=== PATIENT | female | born 1975 | race Caucasian/White ===

== ENCOUNTER 2017-02-07 05:14 | Day surgery (SDC) | payer OTHER ==
[2017-01-27 14:11] VITALS: BMI 33.0
--- NOTE | 2017-01-27 14:41 | PAT Medication Instructions ---
Service Date January 27, 2017. Current Home Medication List Levothyroxine Sodium (Levothyroxine Sodium), 125 MCG PO QAM Omeprazole (Prilosec), 20 MG PO QAM PRN for REFLUX Medication Instructions For Your Scheduled Surgery - Take the following medications the morning of surgery with a sip of water: Levothyroxine Sodium (Levothyroxine Sodium), 125 MCG PO QAM Omeprazole (Prilosec), 20 MG PO QAM PRN for REFLUX - Take the following medications as scheduled the night before surgery: Omeprazole (Prilosec), 20 MG PO QAM PRN for REFLUX If you have any questions please call us at [phone] (Gerri Howard PA-C) or [phone] or [phone]
[2017-01-27 15:24] LABS: BASO % 0.9 %; BASO ABS # 0.07 K/uL (0-0.2); COMPLETE YES; EOS % 1.6 %; HEMATOCRIT 44.6 % (37-47); IG% 0.3 %; LYMPH % 34.1 %; LYMPH ABS # 2.51 K/uL (1.2-3.4); MEAN CELL VOLUME 88.5 fL (80-100); MEAN CORPUSCULAR HEMOGLOBIN 30.2 pg (25-34); MEAN CORPUSCULAR HGB CONC 34.1 g/dl (32-36); MEAN PLATELET VOLUME 9.4 fL (7.4-10.4); MONO % 7.6 %; NEUT % 55.5 %; PLATELET COUNT 264 K/uL (130-400); RED BLOOD COUNT 5.04 M/uL (4.2-5.4); URINE APPEARANCE CLEAR (CLEAR); URINE BILIRUBIN NEG (NEG); URINE COLOR YELLOW; URINE EPITHELIAL CELL AUTO >30 /lpf (0-5); URINE NITRITE NEG (NEG); URINE SPECIFIC GRAVITY 1.014 (1.000-1.030); UROBILINOGEN NEG (NEG); WHITE BLOOD COUNT 7.37 K/uL (4.8-10.8)
[2017-01-27 15:25] LABS: MANUAL MICROSCOPIC REQUIRED? NO; REVIEW REQ? NO
[2017-01-27 15:35] LABS: PARTIAL THROMBOPLASTIN RATIO 1.2; PROTHROMBIN TIME (PATIENT) 10.2 SECONDS (9.0-12.0)
[~2017-02-07] VITALS: Ht 167.6 cm; Wt 94.5 kg
[~2017-02-07 05:14] MED LIST: LEVO125T5 PO; OMEP20CA59 PO
[2017-02-07] MEDS ORDERED: NITR1CAP32 PO (05:38)
[2017-02-07 05:42] VITALS: BP 127/79; PULSE 81; TEMP 36.7; O2SAT 93; Ht 167.6 cm; Wt 94.5 kg
[2017-02-07] MEDS ORDERED: CEFAZOLIN 2000 MG/60 ML D5W IV SCH (06:00)
[2017-02-07] MEDS ORDERED: LACTATED RINGER'S 1000ML 1,000 ML IV SCH ×2 (06:00)
[2017-02-07] MEDS ORDERED: FENTANYL CITRATE INJ 50 MCG/1 ML 2 ML VIAL ONE ×2 (06:37→08:41)
[2017-02-07] MEDS ORDERED: MIDAZOLAM HCL 1 MG/ML 2ML VIAL ONE (06:37)
[2017-02-07] MEDS ORDERED: LIDOCAINE HCL 2% 2 ML VIAL (20MG/ML) ONE (06:37)
[2017-02-07] MEDS ORDERED: NEOSTIGMINE METHYLSULFATE 5 MG/5 ML SYR ONE (06:37)
[2017-02-07] MEDS ORDERED: DEXAMETHASONE SOD INJ 4 MG/ML VIAL ONE (06:37)
[2017-02-07] MEDS ORDERED: ROCURONIUM BROMIDE 10 MG/ML 5 ML VIAL ONE (06:37)
[2017-02-07] MEDS ORDERED: GLYCOPYRROLATE INJ 0.2 MG/ML VIAL ONE (06:37)
[2017-02-07] MEDS ORDERED: ONDANSETRON INJ 2 MG/ML 2 ML VIAL ONE (06:37)
[2017-02-07] MEDS ORDERED: PROPOFOL IV EMULSION 10 MG/ML 20 ML VIAL IV ONE (06:37)
--- NOTE | 2017-02-07 06:56 | History & Physical Bridge Note ---
H&P Re-Evaluation Bridge Note: I have examined the patient, reviewed the History & Physical and in the interval since the performance of the History & Physical I have noted the following changes of clinical significance: No changes noted
[2017-02-07] MEDS ORDERED: BUPIVACAINE 0.5 % 5 MG/1 ML MPF 30ML VIAL ONE (07:04)
[2017-02-07] MEDS ORDERED: KETOROLAC TROMETHAMINE 30 MG/ML VIAL ONE (08:02)
[2017-02-07] MEDS ORDERED: SILVER NITR/POTASSIUM NITRATE APPLICATOR ONE (08:14)
[2017-02-07] MEDS ORDERED: SILVER NITRATE APPLICATORS TOP ONE (08:14)
[2017-02-07] MEDS ORDERED: ATROPINE SULFATE 0.1 MG/ML 5ML SYR IV PRN ×2 (08:15)
[2017-02-07] MEDS ORDERED: ONDANSETRON INJ 2 MG/ML 2 ML VIAL IV PRN ×3 (08:15→08:30)
[2017-02-07] MEDS ORDERED: LABETALOL HCL IV 5 MG/ML 20ML IV PRN ×2 (08:15)
[2017-02-07] MEDS ORDERED: FENTANYL CITRATE INJ 50 MCG/1 ML 2 ML VIAL IV PRN ×2 (08:15)
[2017-02-07] MEDS ORDERED: EpHEDrine SULFATE INJ 50 MG/ML AMP IV PRN ×2 (08:15)
[2017-02-07] MEDS ORDERED: HYDROmorphone INJ 1 MG/ML SYR IV PRN ×2 (08:15)
[2017-02-07] MEDS ORDERED: MEPERIDINE HCL 25 MG/ML CARP IV PRN ×2 (08:15)
[2017-02-07] MEDS ORDERED: SODIUM CHLORIDE 0.9% 1000ML 1,000 ML IV SCH (08:26)
--- NOTE | 2017-02-07 08:28 | [facility] Post Operative Brief Note ---
Immediate Operative Summary Operative Date February 07, 2017. Pre-Operative Diagnosis Desire for permanent sterilization Post-Operative Diagnosis Same as preoperative Procedure(s) Performed Evaluation Under Anesthesia, Laparoscopic Tubal Sterilization with coagulation and fulguration of endometriosis Surgeon Dr. Curry Counsellors Surgeon(s) Dr. Miguel Landrum Estimated Blood Loss 5ml Findings Normal uterus, fallopian tubes and ovaries, mild superficial red/ browns spots suggesting endometriosis on posterior cul de sac Specimens None per surgeon Drains Straigh cath 50 ml urine Anesthesia GEAT Complication(s) None Disposition Recovery Room / PACU
[2017-02-07] MEDS ORDERED: MoRPHine SULFATE 2 MG/ML CARP IV PRN (08:30)
[2017-02-07] MEDS ORDERED: MoRPHine SULFATE 4 MG/ML 1 ML CARP\\VIAL IV PRN (08:30)
[2017-02-07] MEDS ORDERED: KETOROLAC TROMETHAMINE 30 MG/ML VIAL IV. PRN (08:30)
[2017-02-07] MEDS ORDERED: OXYCODONE/ACETAMINOPHEN 5-325 TAB PO PRN ×2 (08:30)
[2017-02-07] MEDS ORDERED: IBUPROFEN 600 MG TAB PO PRN (08:30)
[2017-02-07] MEDS ORDERED: METOCLOPRAMIDE HCL INJ 5 MG/ML 2 ML VIAL IV PRN (08:30)
[2017-02-07] MEDS ORDERED: MTR600X MT (08:38)
[2017-02-07] MEDS ORDERED: OXYC-57 PO (08:38)
--- NOTE | 2017-02-07 08:40 | Discharge Instructions ---
Discharge Instructions Date of Service February 07, 2017. Admission Reason for Admission: Desire For Permanent Sterilization Discharge Discharge Diagnosis / Problem: Laparoscopic tubal sterilization and fulguration of endometriosis Discharge Goals Goal(s): Routine recovery after surgery Medications Continue Dispensed Medications: supercream, lansinoh Activity Recommendations Activity Limitations: as noted below Lifting Limitations: gradually increase as tolerated Exercise/Sports Limitations: until after follow-up appointment May Resume Sexual Activity: after follow-up appointment Shower/Bathe: keep incision dry Driving or Machine Use: ACTIVITY RECOMMENDATIONS: * Rest the first 2-3 days. You should be back to your normal activity levels by day 3. * No heavy lifting for 2 weeks. * No intercourse, tampons or douching for 1-2 weeks. * You may shower the next day. * Do not drive anytime that you are taking narcotic pain medicines. RETURN TO SCHOOL/WORK: * May return to school or work after 2-3 days. DIET: Nausea may occur in the immediate post-operative period. If so, take clear liquids such as tea, bouillon, apple juice until all nausea has subsided, then resume usual diet. MEDICATIONS: Resume previous medications unless instructed otherwise by your surgeon. Ibuprofen 200mg 2-3 tablets every 4-6 hours as needed -- OR -- Aleve 2 tablets every 8-12 hours as needed for post-operative discomfort Medications are over the counter. Tylenol may be used if above medications are contraindicated or not preferred. Medication should be taken with food or milk. Do not take on an empty stomach. SPECIAL CARE INSTRUCTIONS: * Check temperature twice daily for one week. report any elevation over 101 degrees. * You may experience some vagina spotting and/or bleeding. This is normal for 1 -2 weeks and should not be heavier than a normal period. If it is unusual in amount, call your physician. * Post-operative discomfort may consist of a sore throat, a "bloated" feeling and pain in the shoulders. these are normal symptoms, which usually only last for 2-3 days. * Remove band-aids tomorrow and shower. There is no need to replace band-aids unless there is drainage or discomfort. FOLLOW UP VISIT: Call your doctor's office for a post-operative 2 week visit if not already scheduled. . Current Hospital Diet Patient's current hospital diet: Discharge Diet Recommended Diet: Regular Diet Procedures Procedures Performed: Evaluation Under Anesthesia, Laparoscopic Tubal Sterilization with coagulation and fulguration of endometriosis Pending Studies Studies pending at discharge: no Medical Emergencies . Who to Call and When: Medical Emergencies: If at any time you feel your situation is an emergency, please call 911 immediately. . Non-Emergent Contact Non-Emergency issues call your: Surgeon Call Non-Emergent contact if: temperature is above 100.5, your pain is not controlled, your pain is worsening, wound has increased drainage, wound has increased redness, wound has increased pain, you have any medication questions . . "Provider Documentation" section prepared by Elva Curry. . VTE Core Measure Inpt VTE Proph given/why not?: Treatment not indicated [place] Drug Monitoring Program Search Results: no issues identified
[2017-02-07] MEDS ORDERED: METO-157 PO (08:41)
[2017-02-07 09:15] VITALS: BP 111/66; PULSE 60; TEMP 36.5; O2SAT 92
--- NOTE | 2017-02-07 09:19 | Anesthesiology Progress Note ---
Anesthesia Post Op Note Date & Time February 07, 2017 at 09:18 Vital Signs Pain Intensity: 3 Vital Signs Past 12 Hours Date Time Temp Pulse Resp B/P Pulse Ox O2 Delivery O2 Flow Rate FiO2 02/07/17 09:10 106/72 02/07/17 09:10 36.5 51 12 106/72 92 Room Air 02/07/17 09:07 54 15 02/07/17 09:07 53 15 92 02/07/17 09:05 111/69 02/07/17 09:02 58 18 02/07/17 09:02 61 18 89 02/07/17 09:01 103/74 02/07/17 08:57 58 19 02/07/17 08:57 60 19 94 02/07/17 08:56 58 16 95 02/07/17 08:56 57 16 02/07/17 08:55 113/67 02/07/17 08:51 56 18 02/07/17 08:51 57 18 97 02/07/17 08:50 116/77 02/07/17 08:46 55 12 02/07/17 08:46 55 12 100 02/07/17 08:45 112/73 02/07/17 08:41 63 15 100 02/07/17 08:41 62 15 02/07/17 08:40 116/76 02/07/17 08:36 61 17 100 02/07/17 08:36 61 17 02/07/17 08:35 114/76 02/07/17 08:31 62 16 02/07/17 08:31 61 16 100 02/07/17 08:30 111/71 02/07/17 08:26 68 108/67 100 02/07/17 08:26 68 02/07/17 08:26 36.0 71 16 108/67 100 Mask 10 02/07/17 05:42 36.7 81 18 127/79 93 Room Air Notes Mental Status: alert / awake / arousable, participated in evaluation Pt Amnestic to Procedure: Yes Nausea / Vomiting: adequately controlled Pain: adequately controlled Airway Patency, RR, SpO2: stable & adequate BP & HR: stable & adequate Hydration State: stable & adequate Anesthetic Complications: no major complications apparent
[2017-02-07 09:45] VITALS: BP 110/71; PULSE 62; TEMP 36.7; O2SAT 94
[2017-02-07 10:15] VITALS: BP 120/64; PULSE 59; TEMP 36.6; O2SAT 97
--- NOTE | 2017-02-07 10:32 | OPERATIVE REPORT ---
DATE OF OPERATION: 02/07/2017 PREOPERATIVE DIAGNOSES: The patient is a 41-year-old G2, P2-0-0-2 multipara, desires for permanent sterilization and declines nonsurgical halfway contraceptive options. POSTOPERATIVE DIAGNOSES: Same and mild endometriosis. PROCEDURES: Examination under anesthesia, laparoscopic tubal sterilization with bilateral tubal coagulation and fulguration of endometriosis. SURGEON: Dr. Virgie Lorenzo. NOZZLEMAN: Dr. Landrum. ESTIMATED BLOOD LOSS: 5 mL. DRAINS: Straight catheter drained 50 mL of clear urine. ANESTHESIA: General endotracheal. COMPLICATIONS: None. FINDINGS: Examination under anesthesia revealed a slightly enlarged 6 weeks' size anteverted uterus, nonpalpable adnexa. INTRAOPERATIVE FINDINGS: Normal liver and upper abdomen. Normal uterus, fallopian tubes and ovaries. There were noted to be mild superficial red, brown spots on the pelvic peritoneum off the posterior cul-de-sac. They were suggesting endometriosis. DESCRIPTION OF PROCEDURE: The patient was taken to the operating room, where general anesthesia was given without difficulty. She was placed in dorsal lithotomy position and prepared and draped in the usual sterile fashion and examination under anesthesia was done with the above findings and the bladder was drained with a straight catheter, 50 mL of clear urine was obtained. Then, the weighted speculum was placed in the patient's vagina. Cervix was visualized and it was held with tenaculum. A D1G uterine manipulator was placed in the uterus to help to manipulate the uterus during surgery and instruments were removed from the patient's vagina. Gloves were changed and attention was turned to the patient's abdomen, where a periumbilical skin incision was made about 12 mm and a subcuticular fat tissue was brought down with the tip of hemostat. Fascia was visualized, grasped with Bree clamps x2. It was incised with a scalpel and then in that opening, the peritoneum was identified, grasped with hemostat and brought up to the incision and it was entered sharply with Metzenbaum scissors and then, the finger was introduced from the peritoneum. Intraabdominal entrance was confirmed and 12-mm Bob trocar was placed from this incision and it was attached to the fascial edges with the Vicryl suture. Then, CO2 gas was started. The intraabdominal pressure was set to 15 mmHg and then pneumoperitoneum was obtained. Then intraabdominal entrance was confirmed with the scope. Pictures were taken from the upper abdomen, pelvis, ovaries and the posterior cul-de-sac. The left fallopian tube was identified. It was followed till the fimbria. From the operative scope, Kleppinger was introduced and the left fallopian tube was grasped from the mid portion and elevated and then it was coagulated with the Kleppinger from 3 spots. About 3-4 cm length of the tube was coagulated. Excellent hemostasis was achieved. Attention was turned to the right fallopian tube, it was also grasped and identified and followed till the fimbria. It was held from the mid portion and elevated. It was again coagulated with the Kleppinger from 3 spots. About 3-4 cm length was coagulated. The pictures were taken. The posterior cul-de-sac was visualized and there were 3 red spots suggesting endometriosis. They were coagulated with the tip of Kleppinger and then, the pelvis was inspected again to be hemostatic and tubal coagulation was complete. Decision was made to end the procedure. Instruments were removed from the patient's abdomen and CO2 gas was emptied from the incision. The fascia was identified and reapproximated with 0 Vicryl in a running fashion and then, the skin was closed with 4-0 Monocryl in a subcuticular fashion. Incision was covered with dressing. Attention was turned to the patient's vagina. Weighted speculum was placed and Hulka manipulator was removed from the patient's uterus. Anterior lip of cervix was oozing minimal blood, which was controlled with silver nitrate stick and the procedure was ended. No complications happened. All the sponge, instrument and needle counts were correct x3. The patient was taken out from lithotomy position, cleaned and dried. She was taken to recovery room in stable condition. I and Dr. Landrum were present during whole procedure. The patient received 2 grams of cefazolin before surgery. I attest to the content of the Intraoperative Record and any orders documented therein. Any exceptions are noted below. SERGEY
== END 2017-02-07 10:15 | disposition home or self-care (01) ==
LOC: C.ACU 05:14
PROVIDERS: ATTEND Obstetrics & Gynecology
DX: Z30.2 Encounter for sterilization (principal); E03.9 Hypothyroidism, unspecified; E66.9 Obesity, unspecified; Z90.49 Acquired absence of other specified parts of digestive tract; Z68.33 Body mass index [BMI] 33.0-33.9, adult; Z88.1 Allergy status to other antibiotic agents; Z88.0 Allergy status to penicillin; Z83.3 Family history of diabetes mellitus; Z82.49 Family history of ischemic heart disease and other diseases of the circulatory system

== ENCOUNTER 2017-10-05 15:36 | Emergency (ER) | payer OTHER ==
[~2017-10-05] VITALS: Ht 172.7 cm; Wt 94.8 kg
[~2017-10-05 15:36] MED LIST changes: -LEVO125T5 PO; +MTR600X MT; +NITR1CAP32 PO
[2017-10-05 15:45] VITALS: BP 133/83; PULSE 81; TEMP 36.6; O2SAT 99; Ht 172.7 cm; Wt 94.8 kg
[2017-10-05] MEDS ORDERED: LEVO125T5 PO (15:52)
--- NOTE | 2017-10-05 23:34 | EMERGENCY ROOM VISIT NOTE ---
ED Visit Note First contact with patient: 15:50 Chief Complaint: Left thumb laceration. History of Present Illness: Ms. Graham is a 42-year-old white female who ambulates into the ED accompanied by family members complaining of a laceration to the left thumb. Patient reports less than an hour ago she was peeling and cutting potatoes when she accidentally cut her left thumb with a knife. She reports she clean the wound and control bleeding prior to arrival at the hospital. Currently she is complaining of a stinging and burning pain to the tip of the left thumb. She rates her discomfort 8/10. Her pain is nonradiating. Her pain worsens with palpation. She has not identified any alleviating factors related to the pain. She has not taken any medications for pain prior to arrival at the hospital. She denies any associated symptoms including other finger pain, thumb weakness/numbness/tingling. Review of Systems: As noted above in history of present illness. Past Medical History: Hypothyroidism, facial hemangioma, varicella, gallbladder pancreatitis, status post tubal ligation, unspecified eye surgery, facial plastic surgery, and cholecystectomy. Current Medications: Prilosec, levothyroxine. Allergies to Medications: Penicillin, tazobactam. Social History: Patient is currently employed; she feels safe in her home environment; she denies tobacco and alcohol use. Tetanus Immunization Status: Patient reports up-to-date. Physical Examination: Vital Signs: Date Time Temp Pulse Resp B/P (MAP) Pulse Ox O2 Delivery O2 Flow Rate FiO2 10/05/17 15:45 36.6 81 18 133/83 99 Room Air GENERAL: 42-year-old female in mild distress due to pain, nontoxic-appearing, afebrile and hemodynamically stable. NEUROLOGICAL: Awake, alert and oriented to person, place and time. Answering questions appropriately and following commands. SKIN: Warm, dry and pink. Left Thumb: Patient has a 1 cm partial-thickness laceration through the tip of the finger causing a small flap of skin. Bleeding controlled. LEFT THUMB: Soft tissue injury as noted above. No gross bony deformity. Full range of motion of the MCP and interphalangeal joint against resistance. Throughout the thumb the skin was warm and pink and capillary refill is brisk. She is able to distinguish light sensations through all dermatomes. ED Course: Patient is assessed as noted above. Patient's medication list was reviewed. Patient was offered pain medications and refused. Wound Repair: Complexity: Basic Verbal consent was obtained after the risks and benefits were explained. The skin was prepped with betadine and a sterile field set. The wound was explored for foreign bodies and none found. Copious irrigation was performed using sterile saline. With direct pressure the bleeding subsided. Debridement was not performed. The wound edges were approximated using Steri-Strips. Hemostasis and excellent approximation was achieved. Sterile dressing applied. No complications and the patient tolerated the procedure well. Patient was educated about tonevin's findings and instructed on her treatment plan; she verbalizes understanding and agreement with this plan. Clinical Impression: Superficial laceration of the left thumb. Disposition: Patient discharged home in stable condition; prior to departure he was reassessed and subjectively reported she was pain-free. Plan: Comfort measures, wound care, and signs of infection were discussed with the patient. Patient was encouraged to follow-up with personal physician or return emergency department for any signs of infection or any new/concerning symptoms.
== END 2017-10-05 16:26 | disposition home or self-care (01) ==
LOC: C.EDB 15:37 → C.EDD 16:26
DX: S61.012A Laceration without foreign body of left thumb without damage to nail, initial encounter (principal); W26.0XXA Contact with knife, initial encounter; Y93.G1 Activity, food preparation and clean up; E03.9 Hypothyroidism, unspecified; D18.01 Hemangioma of skin and subcutaneous tissue; Z98.51 Tubal ligation status

== ENCOUNTER 2023-11-13 11:59 | Inpatient (IN) ==
[2023-11-13] MEDS: SODIUM CHLORIDE 0.9% 500 ML IV STA (12:11)
--- NOTE | 2023-11-13 12:40 | Emergency Department Note ---
History of Present Illness General Chief complaint: Kidney Stone Stated complaint: FLANK PAIN, KIDNEY STONE TOO BIG TO PASS Time Seen by Provider: 11/13/23 12:23 Source: patient, family (Son who is at the bedside), RN notes reviewed and old records reviewed (I have reviewed records from urology office visit for similar complaints and 11-11-2023) Mode of arrival: ambulatory Limitations: no limitations History of Present Illness Maximum Pain Intensity: 10 This patient is a 48-year-old female who comes in after continuing to have right-sided flank and abdominal pain. She had a workup and was found to have hydronephrosis on the right with some cysts as well as a stone. I reviewed the urology note from Dr. Berrios he is unclear what is causing her symptoms whether with the cyst or the stones he did start on antibiotics and Flomax and she is scheduled for surgery on . She says the pain just gotten worse she does not feel well .she had no fever. no fatigue. she says she is not doing well at home she has had some nausea. No trauma fall or trauma. No dysuria. She did try her pain medication and she is on Oxy IR which did not make her feel better she is presently on Cipro. Home Medications Medication Instructions Recorded Confirmed Type tamoxifen 20 mg tablet 20 mg PO PM 03/07/20 11/13/23 History levothyroxine 137 mcg capsule 137 mcg PO DAILY 05/15/22 11/13/23 History omeprazole 20 mg capsule,delayed 20 mg PO DAILY 04/05/23 11/13/23 History release multivitamin 1 tab PO DAILY 11/07/23 11/13/23 History tamsulosin 0.4 mg capsule 0.4 mg PO DAILY #30 caps 11/11/23 11/13/23 Rx ciprofloxacin HCl 500 mg tablet 500 mg PO Q12H #4 tabs 11/13/23 11/13/23 Rx (Cipro) oxycodone 5 mg tablet 5 mg PO Q6H PRN Severe Pain (Scale 11/13/23 11/13/23 History Score 7-10) Allergies Allergy/AdvReac Type Severity Reaction Status Date / Time Penicillins Allergy Intermediate RASH-AMOXIC Verified 04/18/23 08:39 ILLIN tazobactam Allergy Intermediate RASH Verified 04/18/23 08:39 adhesive Allergy Mild Rash Verified 04/18/23 08:39 Past Med/Surg History Medical History (Updated 11/13/23 @ 19:51 by Sam Booker MD) History of breast cancer Lazy eye Left Eye History of vaginal delivery x 2 Varicella without complication Hypothyroidism Hemangioma of skin Severe, Facial Surgical History History of laparoscopic appendectomy (04/05/23) Laparoscopic Appendectomy(Not Applicable) - Kareem Denton MD, FACS History of surgery As a child - Excision behind left ear - exploratory - negative History of cholecystectomy 07/30/2007 History of esophagogastroduodenoscopy (EGD) 08/03/2016 - Severe Esophagititis, food impaction History of lumpectomy of left breast 02/09/2020 - and SLN Biopsy S/P breast biopsy, left 01/03/2020 Family History Grandmother (Paternal) , Passed in 80's of unknown Breast cancer Mother No problems noted. Father No problems noted. Brother No problems noted. Son No problems noted. Daughter No problems noted. 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 She is on tamoxifen for a history of breast cancer which she says is in remission Allergiesshe says she is allergic to penicillin [facility] Physical Exam Vital Signs Vital Signs - 24 hr 11/13/23 12:01 11/13/23 13:56 11/13/23 14:00 Temperature 36.2 C L Temperature Source Temporal Artery Scan Pulse Rate 105 H 80 87 Pulse Rate from SpO2 Sensor 80 88 Respiratory Rate 18 20 20 Respiratory Effort / Characteristics Non-Labored Respiratory Depth Normal Blood Pressure 141/84 H Blood Pressure [Right Arm] Blood Pressure Mean 103 Blood Pressure Mean [Right Arm] Pulse Oximetry 98 98 99 Oxygen Delivery Method Room Air Sepsis Recent Fever Within 48 Hours No Sepsis New/Unexplained Change in Mental Status No Sepsis Action Taken by Nursing No Action Required 11/13/23 14:05 11/13/23 14:30 11/13/23 15:00 Temperature Temperature Source Pulse Rate 81 82 Pulse Rate from SpO2 Sensor 84 83 Respiratory Rate 18 19 21 Respiratory Effort / Characteristics Respiratory Depth Blood Pressure Blood Pressure [Right Arm] Blood Pressure Mean Blood Pressure Mean [Right Arm] Pulse Oximetry 99 97 97 Oxygen Delivery Method Sepsis Recent Fever Within 48 Hours Sepsis New/Unexplained Change in Mental Status Sepsis Action Taken by Nursing 11/13/23 15:30 11/13/23 16:00 11/13/23 16:30 Temperature Temperature Source Pulse Rate 93 H 90 92 H Pulse Rate from SpO2 Sensor 93 H 88 89 Respiratory Rate 19 19 19 Respiratory Effort / Characteristics Respiratory Depth Blood Pressure Blood Pressure [Right Arm] Blood Pressure Mean Blood Pressure Mean [Right Arm] Pulse Oximetry 98 97 97 Oxygen Delivery Method Sepsis Recent Fever Within 48 Hours Sepsis New/Unexplained Change in Mental Status Sepsis Action Taken by Nursing 11/13/23 17:15 11/13/23 17:30 11/13/23 18:00 Temperature Temperature Source Pulse Rate 81 81 77 Pulse Rate from SpO2 Sensor 82 78 Respiratory Rate 18 21 19 Respiratory Effort / Characteristics Respiratory Depth Blood Pressure Blood Pressure [Right Arm] Blood Pressure Mean Blood Pressure Mean [Right Arm] Pulse Oximetry 96 96 Oxygen Delivery Method Sepsis Recent Fever Within 48 Hours Sepsis New/Unexplained Change in Mental Status Sepsis Action Taken by Nursing 11/13/23 18:30 11/13/23 19:30 Temperature Temperature Source Pulse Rate 75 Pulse Rate from SpO2 Sensor 78 Respiratory Rate 18 Respiratory Effort / Characteristics Respiratory Depth Blood Pressure Blood Pressure [Right Arm] 146/81 H Blood Pressure Mean Blood Pressure Mean [Right Arm] 102 Pulse Oximetry 96 Oxygen Delivery Method Sepsis Recent Fever Within 48 Hours Sepsis New/Unexplained Change in Mental Status Sepsis Action Taken by Nursing General: Well developed well nourished middle-age female who appears in no acute distress, breathing comfortably on room air. Normal speech HEENT: Normal cephalic atraumatic. Pupils are equal round and reactive to light. Sclera anicteric. Extraocular movements are intact. Oropharynx is pink with moist mucous membranes. No swelling of the mouth lips or tongue. Neck: Supple with a midline trachea. No meningeal signs or stiffness, no JVD or bruits. No Stridor. Chest: Clear to auscultation bilaterally. No wheezes or rhonchi. No increased work of breathing. Heart: Regular rate and rhythm without murmurs or gallops. Abdomen: Soft nontender, nondistended without rebound guarding or rigidity. Extremities: No cyanosis clubbing or edema. No calf tenderness or assymetry Spine/Back. Mildly tender to palpation on the right flank. No CVA tenderness Skin: Good turgor without rashes. Neurologic exam: Cranial nerves two through 12 are intact. Motor and sensation are intact and symmetrical throughout. Course Administered Medications Hydromorphone HCl (Hydromorphone Inj 0.5 Mg/0.5 Ml Syr) 0.5 mg IV Q4H PRN PRN Reason: Severe Pain (Scale 7, 8, 9,10) Stop: 11/27/23 16:22 Last Admin: 11/13/23 17:17 Dose: 0.5 mg Documented By: ISA Sodium Chloride (Nss) 1,000 mls @ 100 mls/hr IV .Q10H ROYER Stop: 12/13/23 16:29 Last Admin: 11/13/23 17:16 Dose: 100 mls/hr Documented By: ISA Discontinued Medications Sodium Chloride (Nss) 500 mls @ 999 mls/hr IV .Q31M STA Stop: 11/13/23 12:35 Last Infusion: 11/13/23 13:44 Dose: Infused Documented By: Admin: 11/13/23 12:11 Dose: 999 mls/hr Documented By: YENNI Ketorolac Tromethamine (Ketorolac Tromethamine 15 Mg/Ml Vial) 10 mg IV NOW ONE Stop: 11/13/23 12:36 Last Admin: 11/13/23 13:44 Dose: 10 mg Documented By: KERON Ondansetron HCl (Ondansetron Inj 2 Mg/Ml 2 Ml Vial) 4 mg IV NOW STA Stop: 11/13/23 15:20 Last Admin: 11/13/23 15:44 Dose: 4 mg Documented By: ISA Medical Decision Making Differential Diagnosis Renal colic, kidney stone, electrolyte or metabolic abnormality, obstructive uropathy, infection, inflammation, dehydration, intractable pain Medical Records Attestation: I reviewed the patient's medical records. Home Medications Current Medication List: was personally reviewed by me Laboratory Data Attestation: I reviewed the patient's lab results. 11/13/23 12:12 11/13/23 12:12 Lab Results 11/13/23 11/13/23 11/13/23 Range/Units 12:12 13:49 13:50 WBC 7.71 (4.8-10.8) K/ul RBC 5.58 H (4.20-5.40) M/uL Hgb 17.1 H (12.0-16.0) g/dl Hct 48.5 H (37.0-47.0) % MCV 86.9 (80.0-100.0) fL MCH 30.6 (25.0-34.0) pg MCHC 35.3 (32.0-36.0) g/dL RDW Std Deviation 38.5 (36.4-46.3) fL RDW Coeff of Suresh 12.1 (11.5-14.5) % Plt Count 292 (130-400) K/uL MPV 9.7 (9.4-12.4) fL Immature Gran % (Auto) 0.4 % Neut % (Auto) 48.4 % Lymph % (Auto) 41.2 % Payne % (Auto) 7.4 % Eos % (Auto) 1.6 % Baso % (Auto) 1.0 % Neut # (Auto) 3.73 (1.40-6.50) K/uL Lymph # (Auto) 3.18 (1.20-3.40) K/uL Payne # (Auto) 0.57 (0.11-0.59) K/uL Eos # (Auto) 0.12 (0.00-0.50) K/uL Baso # (Auto) 0.08 (0.00-0.20) K/uL Immature Gran # (Auto) 0.03 (0.01-0.20) K/uL Sodium 138 (136-145) mmol/L Potassium 4.1 (3.5-5.1) mmol/L Chloride 106 (98-107) mmol/L Carbon Dioxide 23 (21-32) mmol/L Anion Gap 9 (3-11) BUN 11 (6-23) mg/dl Creatinine 0.95 (0.6-1.2) mg/dl Est Cr Clr Drug Dosing 87.7 ml/min Est GFR ( Amer) 82.1 ml/min Est GFR (Non-Af Amer) 70.8 ml/min BUN/Creatinine Ratio 11.6 (10-20) Glucose 79 (70-99(Fasting)) mg/dl Calcium 10.0 (8.6-10.3) mg/dl Total Bilirubin 1.7 H (0.2-1.0) mg/dl AST 37 (13-39) U/L ALT 44 (7-52) U/L Alkaline Phosphatase 53 (34-104) U/L Total Protein 8.1 (6.0-8.3) gm/dl Albumin 4.9 (3.4-5.0) gm/dl Globulin 3.2 (2.5-4.0) gm/dl Albumin/Globulin Ratio 1.5 (0.9-2) HCG, Qual Negative (Negative) Urine Color Yellow Urine Appearance Cloudy A (Clear) Urine pH 5.0 (4.5-7.5) Ur Specific [place] 1.013 (1.000-1.030) Urine Protein Trace H (Negative) Urine Glucose (UA) Negative (Negative) Urine Ketones Negative (Negative) Urine Blood Negative (Negative) Urine Nitrite Negative (Negative) Urine Bilirubin Negative (Negative) Urine Urobilinogen Negative (Negative) Ur Leukocyte Esterase 2+ H (Negative) Urine WBC (Auto) >30 H (0-5) /hpf Urine RBC (Auto) 0-4 (0-4) /hpf U Hyaline Cast (Auto) 1-5 (0-5) /lpf U Epithel Cells (Auto) >30 H (0-5) /lpf Urine Bacteria (Auto) 1+ H (Negative) POC Ur Test NEG (NEG) SARS-CoV-2, RNA, NAAT NEGATIVE (NEGATIVE) Imaging Data Attestation: I personally reviewed and interpreted this imaging study as follows: My Impression: KUB x-rayshe does appear to have stones in the right kidney Radiologist's Impression: KUB X-Ray 11/13/23 12:35 KUB CLINICAL HISTORY: Right flank pain. FINDINGS: 2 AP, portable, supine abdominal radiographs are compared to study dated 07/26/2007 and correlated with abdominal CT dated 04/05/2023. There is a nonobstructed abdominal bowel gas pattern. Moderate fecal retention is seen throughout the colon. Cholecystectomy clips are noted in the right upper quadrant. Clips and suture material are also seen in the right lower quadrant. A 9 mm nonobstructing calculus projects over the right kidney. No calcifications are seen projecting over the left kidney or along the course of ureters. There are numerous pelvic phleboliths. The bony structures appear intact. IMPRESSION: 1. No acute abnormality is identified. 2. Right-sided nephrolithiasis. Electronically signed by: Ismael Yan M.D. 11/13/2023 3:10 PM [facility] Narrative This patient comes in as scribed above I did see her in the sub wait to help expedite her care. IV access was established and she was hydrated with an saline bolus IV 1 L. she was given Toradol 10 mg IV and Zofran 4 mg IV. I have reviewed her old records and her CAT scan that she had on the . At this point ,I do not feel we need to likely repeat the CAT scan acutely. She was hydrated and multiple blood testing was obtained as well as urine. Her urinalysis does not suggest any definite infection. She has no significant white count or fevers or chest infection. She has no significant anemia. She has normal renal function. She did require additional IV Zofran and fluids. She does not feel she can go home I did discuss the case with Ludy who is Dr. Sepulveda's PA. She agrees that the patient does not need acute surgical procedure today but does agree with having the medical team admit the patient for pain management and they can potentially do a procedure on her while she is in the hospital. I did discuss case in consultation with the [facility] they saw the patient ER going to admit her for pain management hydration and urologic consultation and further treatment and evaluation. Continuous cardiac monitor technician: Orders were placed in the EMR for continuous cardiac monitor technician: Upon my evaluation the patient was noted to be in normal sinus rhythm rate of 75 Impression & Plan Acute right flank pain, Renal cyst, Nephrolithiasis, Nausea & vomiting, Acute dehydration Discharge Plan Visit Data Chief Complaint: Kidney Stone Stated Complaint: FLANK PAIN, KIDNEY STONE TOO BIG TO PASS ED Provider: Sam Booker Discharge Problem: Acute right flank pain, Renal cyst, Nephrolithiasis, Nausea & vomiting, Acute dehydration Forms Stand Alone Forms: [facility] Prescriptions Prescriptions: No Action tamoxifen 20 mg tablet 20 mg PO PM levothyroxine 137 mcg capsule 137 mcg PO DAILY ciprofloxacin HCl [Cipro] 500 mg tablet 500 mg PO Q12H Qty: 4 0RF tamsulosin 0.4 mg capsule 0.4 mg PO DAILY Qty: 30 1RF omeprazole 20 mg capsule,delayed release(DR/EC) 20 mg PO DAILY oxycodone 5 mg tablet 5 mg PO Q6H PRN (Reason: Severe Pain (Scale Score 7-10)) multivitamin Tablet 1 tab PO DAILY Referrals Referrals: Nannette Rock DO [Primary Care Provider] - Discharge Problem: Nausea & vomiting Qualifiers: Vomiting type: unspecified Qualified Code(s): R11.2 - Nausea with vomiting, unspecified
[2023-11-13 12:43] LABS: Basophils # (auto) 0.08 K/uL (0.00-0.20); Eosinophils # (auto) 0.12 K/uL (0.00-0.50); Eosinophils % (auto) 1.6 %; Hematocrit (blood only) 48.5 % (37.0-47.0); Hemoglobin 17.1 g/dl (12.0-16.0); Immature Granulocytes # (auto) 0.03 K/uL (0.01-0.20); Immature Granulocytes % (auto) 0.4 %; Lymphocytes # (auto) 3.18 K/uL (1.20-3.40); Lymphocytes % (auto) 41.2 %; Mean Corpuscular Hemoglobin 30.6 pg (25.0-34.0); Mean Corpuscular Hgb Conc 35.3 g/dL (32.0-36.0); Mean Corpuscular Volume 86.9 fL (80.0-100.0); Mean Platelet Volume 9.7 fL (9.4-12.4); Monocytes # (auto) 0.57 K/uL (0.11-0.59); Monocytes % (auto) 7.4 %; Neutrophils # (auto) 3.73 K/uL (1.40-6.50); Neutrophils % (auto) 48.4 %; Platelet Count 292 K/uL (130-400); RDW Coefficient of Variation 12.1 % (11.5-14.5); RDW Standard Deviation 38.5 fL (36.4-46.3); Red Blood Count 5.58 M/uL (4.20-5.40); White Blood Count 7.71 K/ul (4.8-10.8)
[2023-11-13 13:11] LABS: Albumin Globulin Ratio 1.5 (0.9-2); Albumin Level 4.9 gm/dl (3.4-5.0); BUN Creatinine Ratio 11.6 (10-20); Bilirubin,Total 1.7 mg/dl (0.2-1.0); Creatinine Clr Calc Pharmacy 87.7 ml/min; Est GFR (African American) 82.1 ml/min; Est GFR (Non-African American) 70.8 ml/min; Globulin 3.2 gm/dl (2.5-4.0); Potassium 4.1 mmol/L (3.5-5.1); Total Protein 8.1 gm/dl (6.0-8.3)
[2023-11-13] MEDS: KETOROLAC TROMETHAMINE 15 MG/ML VIAL IV ONE (13:44)
[2023-11-13 13:49] LABS: Pregnancy Test, Serum Negative (Negative)
[2023-11-13 14:11] LABS: Appearance Urine Cloudy (Clear); Bacteria Urine Automated 1+ (Negative); Bilirubin Urine Negative (Negative); Blood Urine Negative (Negative); Color Urine Yellow; Epithelial Cell Urine Auto >30 /lpf (0-5); Glucose Urine UA Negative (Negative); Ketones Urine Negative (Negative); Leukocyte Esterase Urine 2+ (Negative); Nitrite Urine Negative (Negative); Protein Urine Trace (Negative); RBC Urine Automated 0-4 /hpf (0-4); Specific Gravity Urine 1.013 (1.000-1.030); Urobilinogen Urine Negative (Negative); WBC Urine Automated >30 /hpf (0-5)
--- NOTE | 2023-11-13 15:12 | XRay Report ---
KUB CLINICAL HISTORY: Right flank pain. FINDINGS: 2 AP, portable, supine abdominal radiographs are compared to study dated 07/26/2007 and cor related with abdominal CT dated 04/05/2023. There is a nonobstructed abdominal bowel gas pattern. Moder ate fecal retention is seen throughout the colon. Cholecystectomy clips are noted in the right upper quadrant. Clips and suture material are also seen in the right lower quadrant. A 9 mm nonobstructing calculus projects over the right kidney. No calcifications are seen projecting over the left kidney o r along the course of ureters. There are numerous pelvic phleboliths. The bony structures appear inta ct. IMPRESSION: 1. No acute abnormality is identified. 2. Right-sided nephrolithiasis. Electronically signed by: Ismael Yan M.D. 11/13/2023 3:10 PM
[2023-11-13] MEDS: ONDANSETRON INJ 2 MG/ML 2 ML VIAL IV STA (15:44)
--- NOTE | 2023-11-13 16:09 | History & Physical Report ---
Date of Service November 13, 2023 Assessment & Plan (1) Nephrolithiasis: (2) Renal cyst: (3) History of breast cancer: (4) Hypothyroidism: Plan This is a 48-year-old female with PMH of hypothyroidism, GERD, history of breast cancer on tamoxifen, kidney stones who presents with worsening pain in the right groin and flank over the past few days with evidence of a 9mm non-obstructing renal stone on KUB. Nephrolithiasis Flank pain Follows with Dr. Berrios of urology and was seen on 11/11 for renal colic and unclear underlying cause thought to possibly be related to stone vs cysts Sent home on Cipro, oxycodone 5mg Q6H PRN and Flomax, but pain has intensified KUB with a 9 mm nonobstructing calculus projects over the right kidney ED provider discussed with urology, who will evaluate patient, NPO after midnight Continue IV fluids, pain control, antiemetics, bowel regimen Renal function at baseline. Continue to monitor with daily BMP UA with 2+ leuk esterases, urine bacteria 1+, nitrite negative. Continue PO Cipro per outpatient regimen, follow culture History of breast cancer Follows with Dr. Arndt, continue Tamoxifen Hypothyroidism Chronic, stable. Continue levothyroxine DVT Ppx: SCDs Code status: FULL PCP: Shweta Dispo: Admitted to med/surg Patient seen in collaboration with Dr. Multani. Please see addendum. I spent a total of 60 minutes coordinating, documenting, and providing care for this patient excluding time spent in the performance of separately billed services. History of Present Illness Chief Complaint: Flank pain Primary Care Provider: Nannette Rock, DO This is a 48-year-old female with PMH of hypothyroidism, GERD, history of breast cancer on tamoxifen, kidney stones who presents with worsening pain in the right groin and flank over the past few days. Follows with Dr. Berrios of urology and was seen on 11/11 for renal colic and unclear underlying cause thought to possibly be related to stone vs cysts. Discussed plans for possible intervention later this week. Was sent home on Cipro, oxycodone 5mg Q6H PRN and Flomax, which she has been taking. Continues to have pain in right groin radiating to flank with associated dysuria, nausea and fatigue. Subjective fever on Friday but has not felt as warm since. Denies any vomiting. No lightheadedness, CP, SOB, vomiting, abdominal pain, diarrhea or constipation. Allergies Allergy/AdvReac Type Severity Reaction Status Date / Time Penicillins Allergy Intermediate RASH-AMOXIC Verified 04/18/23 08:39 ILLIN tazobactam Allergy Intermediate RASH Verified 04/18/23 08:39 adhesive Allergy Mild Rash Verified 04/18/23 08:39 Home Medications Medication Instructions Recorded Confirmed Type tamoxifen 20 mg tablet 20 mg PO PM 03/07/20 11/13/23 History levothyroxine 137 mcg capsule 137 mcg PO DAILY 05/15/22 11/13/23 History omeprazole 20 mg capsule,delayed 20 mg PO DAILY 04/05/23 11/13/23 History release multivitamin 1 tab PO DAILY 11/07/23 11/13/23 History tamsulosin 0.4 mg capsule 0.4 mg PO DAILY #30 caps 11/11/23 11/13/23 Rx ciprofloxacin HCl 500 mg tablet 500 mg PO Q12H #4 tabs 11/13/23 11/13/23 Rx (Cipro) oxycodone 5 mg tablet 5 mg PO Q6H PRN Severe Pain (Scale 11/13/23 11/13/23 History Score 7-10) Past Med/Surg History Medical History History of breast cancer Lazy eye Left Eye History of vaginal delivery x 2 Varicella without complication Hypothyroidism Hemangioma of skin Severe, Facial Surgical History History of laparoscopic appendectomy (04/05/23) Laparoscopic Appendectomy(Not Applicable) - Kareem Denton MD, FACS History of surgery As a child - Excision behind left ear - exploratory - negative History of cholecystectomy 07/30/2007 History of esophagogastroduodenoscopy (EGD) 08/03/2016 - Severe Esophagititis, food impaction History of lumpectomy of left breast 02/09/2020 - and SLN Biopsy S/P breast biopsy, left 01/03/2020 Family History Grandmother (Paternal) , Passed in 80's of unknown Breast cancer Mother No problems noted. Father No problems noted. Brother No problems noted. Son No problems noted. Daughter No problems noted. 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 Physical Exam Physical Exam: Please see Dr. Multani's addendum for physical exam. Results & Data Results & Data Vital Signs (Past 12 Hours) Vital Signs Temp Pulse Resp BP Pulse Ox O2 Del Method 11/13/23 14:05 18 99 11/13/23 12:01 36.2 C L 105 H 18 141/84 H 98 Room Air Laboratory Results Short CBC 11/13/23 Range/Units 12:12 WBC 7.71 (4.8-10.8) K/ul Hgb 17.1 H (12.0-16.0) g/dl Hct 48.5 H (37.0-47.0) % Plt Count 292 (130-400) K/uL BMP 11/13/23 12:12 Sodium 138 Potassium 4.1 Chloride 106 Carbon Dioxide 23 BUN 11 Creatinine 0.95 Glucose 79 Calcium 10.0 Liver Function 11/13/23 Range/Units 12:12 Total Bilirubin 1.7 H (0.2-1.0) mg/dl AST 37 (13-39) U/L ALT 44 (7-52) U/L Alkaline Phosphatase 53 (34-104) U/L Albumin 4.9 (3.4-5.0) gm/dl Urine 11/13/23 Range/Units 13:50 Urine Color Yellow Urine Appearance Cloudy A (Clear) Urine pH 5.0 (4.5-7.5) Ur Specific [place] 1.013 (1.000-1.030) Urine Protein Trace H (Negative) Urine Glucose (UA) Negative (Negative) Diagnostic Findings KUB X-Ray 11/13/23 12:35 KUB CLINICAL HISTORY: Right flank pain. FINDINGS: 2 AP, portable, supine abdominal radiographs are compared to study dated 07/26/2007 and correlated with abdominal CT dated 04/05/2023. There is a nonobstructed abdominal bowel gas pattern. Moderate fecal retention is seen throughout the colon. Cholecystectomy clips are noted in the right upper quadrant. Clips and suture material are also seen in the right lower quadrant. A 9 mm nonobstructing calculus projects over the right kidney. No calcifications are seen projecting over the left kidney or along the course of ureters. There are numerous pelvic phleboliths. The bony structures appear intact. IMPRESSION: 1. No acute abnormality is identified. 2. Right-sided nephrolithiasis. Electronically signed by: Ismael Yan M.D. 11/13/2023 3:10 PM Supervising Physician Co-Signing Physician Notes Patient is a 48-year-old female with a history of hypothyroidism, GERD, breast cancer on tamoxifen and other medical problems presents with history of right flank, groin pain which has been gradually worsening. Patient follows with [facility] urology. Patient admits to have nausea, and generalized weakness and dysuria but denies any hematuria. Please review HPI for complete details of presentation. I personally reviewed blood work and imaging studies. Urinalysis abnormal suggestive of possible UTI. KUB showed right-sided nephrolithiasis. Patient is admitted for management of symptomatic nephrolithiasis, renal colic. Continue IV fluids, pain control, n.p.o. after midnight for possible urological procedure tomorrow. Urology consulted. Continue home ciprofloxacin. Follow-up urine culture. I personally interviewed and examined at bedside. Patient's care is coordinated with Tana Caldwell PA-C. I have reviewed the advanced practitioner's documentation, and I agree with, and take responsibility for that plan of care. Please refer to the documentation above for details of patient's presentation and for discussion of other issues. I spent a total of 20minutes coordinating, documenting, and providing care for this patient excluding time spent in the performance of separately billed services. Physical Exam: Vitals signs as noted above General Appearance:Obese, no apparent distress Head: normocephalic, Atraumatic Eyes: normal inspection, EOMI Neck: supple, Trachea midline Respiratory/Chest: Normal breath sounds, CTA, No accessory muscle use Cardiovascular: S1, S2, No murmur Abdomen/GI:Soft, R flank, Groin tender, Bowel sounds present Extremities/Musculoskeletal:normal inspection, Trace pedal edema Neurologic/Psych:AAOX3, grossly no focal neurological deficits Skin: normal color, warm
[2023-11-13] MEDS: SODIUM CHLORIDE 0.9% 1,000 ML IV SCH (17:16)
[2023-11-13] MEDS: HYDROmorphone INJ 0.5 MG/0.5 ML SYR IV PRN (17:17)
--- NOTE | 2023-11-13 20:49 | Urology Consultation ---
Date of Consultation November 13, 2023 Assessment & Plan (1) Acute right flank pain: The patient has been admitted on the hospitalist service. From a urologic perspective we recommend proceeding as follows: Provide analgesics Provide antiemetics Patient has been started on Cipro as an outpatient and this medication has been continued. Does appear the patient may have a urinary tract infection and a urine culture has been sent. She is on antibiotics as noted above There is concern that the patient's kidney stone may be causing her pain. She has been started on Flomax for expulsive therapy Will make the patient n.p.o. after midnight tonight. She will be reevaluated in the morning to determine if cystoscopy is warranted. At the present time I do not feel an emergent operation is needed as the patient is normotensive without tachycardia, fever, or acute kidney injury. In addition, the patient had just eaten a meal prior to my arrival. Additional recommendations be forthcoming based on hER clinical course as it unfolds History of Present Illness Reason for Consultation: Renal colic History of Present Illness This is a 48-year-old female who has been having issues with nephrolithiasis and kidney cysts. The patient was most recently seen by Dr. Lokesh Berrios of urology on 11/11/2023. He felt that there was a possibility that the patient's renal cyst could be the cause of her pain and he had placed the patient on antibiotics in form of Cipro. He also discussed the possibility of a cyst decortication or percutaneous drainage of the cyst. In addition, the patient is known to have nephrolithiasis and he felt that this also could have been a possible cause of the patient's pain. Tentative plans were put in place for patient to undergo a right ureteroscopy and potential laser lithotripsy. Since her visit with Dr. Berrios on the above-noted date the patient has had ongoing/worsening right-sided flank pain which radiates to the front of her ab domen. She does not report any mitigating factors to her pain. She has had nausea without vomiting. She has had chills and hot flashes but admits she did not take her temperature. She denies any dysuria or hematuria but does note urinary frequency. Since arrival to the hospital the patient has had labs and imaging which I independent reviewed. Patient did have a KUB which showed right-sided nephrolithiasis. There appeared to be a 9 mm nonobstructing calculus projecting over the right kidney. No other acute abnormalities were noted. Labs included CBC her white blood cell count and platelet count were normal. Hemoglobin and hematocrit were 17.1 and 48.5. Chemistry profile showed sodium and potassium along with the BUN and creatinine were normal. A test was negative. A urinalysis was performed that showed cloudy urine which showed pyuria with greater than 30 white blood cells per high-power field. The specimen was negative for nitrites with blood 2+ positive for leukocyte Estrace. There is 1+ bacteria on the study. A COVID test was negative. At the time of my interview the patient was resting comfortably at the bedside she was in no distress Allergies Allergy/AdvReac Type Severity Reaction Status Date / Time Penicillins Allergy Intermediate RASH-AMOXIC Verified 04/18/23 08:39 ILLIN tazobactam Allergy Intermediate RASH Verified 04/18/23 08:39 adhesive Allergy Mild Rash Verified 04/18/23 08:39 Home Medications Medication Instructions Recorded Confirmed Type tamoxifen 20 mg tablet 20 mg PO PM 03/07/20 11/13/23 History levothyroxine 137 mcg capsule 137 mcg PO DAILY 05/15/22 11/13/23 History omeprazole 20 mg capsule,delayed 20 mg PO DAILY 04/05/23 11/13/23 History release multivitamin 1 tab PO DAILY 11/07/23 11/13/23 History tamsulosin 0.4 mg capsule 0.4 mg PO DAILY #30 caps 11/11/23 11/13/23 Rx ciprofloxacin HCl 500 mg tablet 500 mg PO Q12H #4 tabs 11/13/23 11/13/23 Rx (Cipro) oxycodone 5 mg tablet 5 mg PO Q6H PRN Severe Pain (Scale 11/13/23 11/13/23 History Score 7-10) Patient History Medical History History of breast cancer Lazy eye Left Eye History of vaginal delivery x 2 Varicella without complication Hypothyroidism Hemangioma of skin Severe, Facial Surgical History History of laparoscopic appendectomy (04/05/23) Laparoscopic Appendectomy(Not Applicable) - Kareem Denton MD, FACS History of surgery As a child - Excision behind left ear - exploratory - negative History of cholecystectomy 07/30/2007 History of esophagogastroduodenoscopy (EGD) 08/03/2016 - Severe Esophagititis, food impaction History of lumpectomy of left breast 02/09/2020 - and SLN Biopsy S/P breast biopsy, left 01/03/2020 Family History Grandmother (Paternal) , Passed in 80's of unknown Breast cancer Mother No problems noted. Father No problems noted. Brother No problems noted. Son No problems noted. Daughter No problems noted. 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 [employer] Feels Safe at Home: Yes Childhood Exposure to Second-Hand Smoke: Yes (Father smoked in home ) Diet: regular caffeine: Yes (1 cup of tea/day, soda throughout the day at times ) during the past year weight has: remained stable Dental Care, Regularly: Yes Assistive Devices: None Review of Systems Constitutional: + chills Eyes: + corrective lenses Ear, Nose, Mouth, Throat: no ear pain Respiratory: no cough and no dyspnea Cardiovascular: + chest pain Gastrointestinal: + abdominal pain (Radiating from right f lank) and + nausea; no vomiting Genitourinary: no dysuria Musculoskeletal: no back pain Integumentary: no rash Neurologic: no localized weakness Physical Exam Constitutional: WD/WN, vitals as above Eyes: no conjunctival abnormality ENMT: Ears: no hearing impairment and no external ear abnormality Mouth: no oropharynx abnormality Neck: trachea midline Respiratory: normal respiratory effort; no respiratory distress and no labored breathing Cardiovascular: Rate/Rhythm: regular rate and regular rhythm Gastrointestinal (Abdomen): Patient has tenderness with palpation in the right lower quadrant. There is no rebound tenderness or guarding Musculoskeletal: No calf tenderness Skin: no rashes Neurologic: moves all extremities Psychiatric: A+Ox3, euthymic affect Genitourinary: Right-sided CVA tenderness noted with percussion. No CVA tenderness noted with percussion on the left Results & Data Vital Signs (Past 12 Hours) Vital Signs Temp Pulse Resp BP BP Pulse Ox O2 Del Method 11/13/23 19:31 77 11/13/23 19:30 146/81 H 11/13/23 18:30 75 18 96 11/13/23 18:00 77 19 96 11/13/23 17:30 81 21 96 11/13/23 17:15 81 18 11/13/23 16:30 92 H 19 97 11/13/23 16:00 90 19 97 11/13/23 15:30 93 H 19 98 11/13/23 15:00 82 21 97 11/13/23 14:30 81 19 97 11/13/23 14:05 18 99 11/13/23 14:00 87 20 99 11/13/23 13:56 80 20 98 11/13/23 12:01 36.2 C L 105 H 18 141/84 H 98 Room Air PG Care Time/CCT Total # of Minutes Spent Total Time Spent with Patient: Total time spent is greater than 50% in coordination of care (as documented) at patient's floor/unit and/or counseling patient: Coding Level of Care Code 04731 IN/OBS CONSULT LVL 5,80M Diagnoses Acute right flank pain R10.9
[2023-11-13] MEDS: TAMOXIFEN CITRATE 10 MG TABLET PO SCH (23:25)
[2023-11-13] MEDS: CIPROFLOXACIN 500 MG TAB PO SCH (23:25)
[2023-11-13] MEDS: POLYETHYLENE (MIRALAX) 17 GM PACK PO ONE (23:33)
[2023-11-14] MEDS: LEVOTHYROXINE SODIUM 137 MCG TABLET PO SCH (06:16)
[2023-11-14 06:46] LABS: Hematocrit (blood only) 40.7 % (37.0-47.0); Hemoglobin 13.6 g/dl (12.0-16.0); Mean Corpuscular Hemoglobin 30.3 pg (25.0-34.0); Mean Corpuscular Hgb Conc 33.4 g/dL (32.0-36.0); Mean Corpuscular Volume 90.6 fL (80.0-100.0); Mean Platelet Volume 9.5 fL (9.4-12.4); Platelet Count 208 K/uL (130-400); RDW Coefficient of Variation 12.3 % (11.5-14.5); RDW Standard Deviation 40.6 fL (36.4-46.3); Red Blood Count 4.49 M/uL (4.20-5.40); White Blood Count 6.24 K/ul (4.8-10.8)
[2023-11-14 07:05] LABS: BUN Creatinine Ratio 13.5 (10-20); Calcium 8.2 mg/dl (8.6-10.3); Creatinine Clr Calc Pharmacy 94.9 ml/min; Est GFR (African American) 88.8 ml/min; Est GFR (Non-African American) 76.6 ml/min; Potassium 4.1 mmol/L (3.5-5.1)
--- NOTE | 2023-11-14 07:27 | Hospitalist Progress Note ---
Date of Service November 14, 2023 Assessment & Plan (1) Nephrolithiasis: (2) Renal cyst: (3) History of breast cancer: (4) Hypothyroidism: Plan Ms. Leon is a 48-year-old female with PMH of hypothyroidism, GERD, history of breast cancer on tamoxifen, kidney stones who presents with worsening pain in the right groin and flank over the past few days with evidence of a 9mm non- obstructing renal stone on KUB. Patient admitted on 11/13 for pain management and attempt at expulsion. Patient still with pain this morning; however, it is now planned to undergo cytoscopy this afternoon with urology. #Acute right flank pain #Nephrolithiasis #Renal cyst Follows with Dr. Berrios of urology and was seen on 11/11 for renal colic and unclear underlying cause thought to possibly be related to stone vs cysts Sent home on Cipro, oxycodone 5mg Q6H PRN and Flomax, but pain has intensified KUB with a 9 mm nonobstructing calculus projects over the right kidney CT OP: cyst in renal pelvic region, 33mm to 46mm since 2014. UA culture with pin point growth Continue IV fluids, pain control, antiemetics, bowel regimen Renal function at baseline. Continue to monitor with daily BMP UA with 2+ leuk esterases, urine bacteria 1+, nitrite negative. Continue PO Cip ro per outpatient regimen IV perioperative abx per urology -Plan for cystoscopy today #History of breast cancer Follows with Dr. Arndt, continue Tamoxifen #Hypothyroidism Chronic, stable. Continue levothyroxine DVT Ppx: SCDs Code status: FULL PCP: Shweta Dispo: Admitted to med/surg Admission and Anticipated Discharge Date Admission Date: November 13, 2023 Subjective Patient evaluated at bedside prior to cystoscopy Endorses right flank/RUQ pain Denies any other acute concerns, no nausea, vomiting, chills Physical Exam Constitutional: WD/WN, vitals as above Respiratory: normal respiratory effort, lungs clear to auscultation Cardiovascular: RRR, no murmur, no edema Gastrointestinal (Abdomen): tenderness in RUQ/ right CVAT otherwise soft abdomen Results & Data Results & Data Vital Signs (Past 12 Hours) Vital Signs Temp Pulse Resp BP Pulse Ox O2 Del Method 11/13/23 21:30 36.4 C L 20 140/92 94 Room Air 11/13/23 19:31 77 11/13/23 19:30 146/81 H Laboratory Results Short CBC 11/14/23 Range/Units 05:50 WBC 6.24 (4.8-10.8) K/ul Hgb 13.6 D (12.0-16.0) g/dl Hct 40.7 (37.0-47.0) % Plt Count 208 (130-400) K/uL BMP 11/14/23 05:50 Sodium 139 Potassium 4.1 Chloride 111 H Carbon Dioxide 21 BUN 12 Creatinine 0.89 Glucose 84 Calcium 8.2 L Urine 11/13/23 Range/Units 13:50 Urine Color Yellow Urine Appearance Cloudy A (Clear) Urine pH 5.0 (4.5-7.5) Ur Specific [place] 1.013 (1.000-1.030) Urine Protein Trace H (Negative) Urine Glucose (UA) Negative (Negative) Medications Administered Home Medications Medication Instructions Recorded Confirmed Last Taken tamoxifen 20 mg tablet 20 mg PO PM 03/07/20 11/13/23 11/06/23 levothyroxine 137 mcg capsule 137 mcg PO DAILY 05/15/22 11/13/23 11/07/23 omeprazole 20 mg capsule,delayed 20 mg PO DAILY 04/05/23 11/13/23 11/07/23 release multivitamin 1 tab PO DAILY 11/07/23 11/13/23 11/07/23 tamsulosin 0.4 mg capsule 0.4 mg PO DAILY #30 caps 11/11/23 11/13/23 Unknown ciprofloxacin HCl 500 mg tablet 500 mg PO Q12H #4 tabs 11/13/23 11/13/23 Unknown (Cipro) oxycodone 5 mg tablet 5 mg PO Q6H PRN Severe Pain (Scale 11/13/23 11/13/23 Unknown Score 7-10) Active Medications Generic Name Dose Route Start Last Admin Trade Name Freq PRN Reason Stop Dose Admin Ciprofloxacin 500 mg 11/13/23 22:25 11/14/23 08:38 Ciprofloxacin 500 Mg Tab PO 11/23/23 22:24 500 mg Q12 ROYER Administration Protocol Hydromorphone HCl 0.5 mg 11/13/23 16:23 11/14/23 13:16 Hydromorphone Inj 0.5 Mg/0.5 Ml Syr IV 02/29/24 16:22 0.5 mg Q4H PRN Administration Severe Pain (Scale 7, 8, 9,10) Sodium Chloride 1,000 mls @ 100 mls/hr 11/13/23 16:30 11/14/23 02:36 Nss IV 12/13/23 16:29 100 mls/hr .Q10H ROYER Administration Levothyroxine Sodium 137 mcg 11/14/23 06:30 11/14/23 06:16 Levothyroxine Sodium 137 Mcg Tablet PO 12/14/23 06:29 137 mcg DAILYBB ROYER Administration Multivitamins 1 tab 11/14/23 09:00 11/14/23 08:38 Multivitamin Tab PO 12/14/23 08:59 1 tab DAILY ROYER Administration Pantoprazole Sodium 40 mg 11/14/23 09:00 11/14/23 08:38 Pantoprazole 40 Mg Tab PO 12/14/23 08:59 40 mg DAILY ROYER Administration Tamoxifen Citrate 20 mg 11/13/23 22:25 11/13/23 23:25 Tamoxifen Citrate 10 Mg Tablet PO 12/13/23 22:24 20 mg PM ROYER Administration Tamsulosin HCl 0.4 mg 11/14/23 09:00 11/14/23 08:38 Tamsulosin Hcl 0.4 Mg Cap PO 12/14/23 08:59 0.4 mg DAILY ROYER Administration
[2023-11-14] MEDS: TAMSULOSIN HCL 0.4 MG CAP PO SCH (08:38)
[2023-11-14] MEDS: MULTIVITAMIN TAB PO SCH (08:38)
[2023-11-14] MEDS: PANTOprazole 40 MG TAB PO SCH (08:38)
--- NOTE | 2023-11-14 09:07 | Urology Progress Note ---
<Statement entered by Molina Berrios MD - 11/14/23 10:25> I have discussed Ms. Leon's case with KONSTANTIN Hair and agree with the above documentation. Is unclear whether her flank pain is related to the cyst or the stone, as both appear to be stable from prior imaging studies. With ongoing right-sided flank pain, possible hydronephrosis on CT scan, we will plan for right ureteral stent placement and possible laser lithotripsy on the right side. -Molina Berrios MD. Date of Service November 14, 2023 Assessment & Plan (1) Acute right flank pain: (2) Nephrolithiasis: (3) Renal cyst: Plan: Follow-up of acute right flank pain; nephrolithiasis, renal cyst Patient afebrile and hemodynamically stable Labs showcreatinine 0.89, no leukocytosis Urine culture pending She is currently on PO Ciprofloxacin continued from outpatient Discussed surgical intervention with right ureteral stent placement and possible stone treatment as previously discussed with Dr. Berrios She wishes to proceed with surgery today Will proceed to OR for cystoscopy, right ureteronephroscopy, retrograde pyelogram, right ureteral stent placement and possible stone treatment Risks and benefits of procedure to be reviewed with patient by Dr. Berrios Keep NPO for procedure Will cover with IV antibiotics preoperatively Continue supportive care and medical management per hospital medicine will follow Admission and Anticipated Discharge Date Admission Date: November 13, 2023 Subjective Patient seen and examined at bedside this morning Reports ongoing right flank discomfort radiating to abdomen Nausea has improved Voiding without difficulty, no dysuria or hematuria Denies fevers, notes occasional chills Currently NPO Review of Systems Constitutional: as per Subjective / HPI Gastrointestinal: as per Subjective / HPI Genitourinary: as per Subjective / HPI Physical Exam Constitutional: well developed and well nourished; no acute distress Respiratory: normal respiratory effort; no respiratory distress and no labored breathing Gastrointestinal (Abdomen): Inspection/Auscultation: abdomen normal to inspection Musculoskeletal: Head/Neck/Chest: normocephalic Neurologic: moves all extremities and awake Psychiatric: Orientation: alert and oriented x 3 Results & Data Vital Signs (Past 12 Hours) Vital Signs Temp Pulse Resp BP Pulse Ox O2 Del Method 11/14/23 08:01 36.5 C 64 16 107/73 95 Room Air 11/13/23 21:30 36.4 C L 20 140/92 94 Room Air PG Care Time/CCT Total # of Minutes Spent Total Time Spent with Patient: Total time spent is greater than 50% in coordination of care (as documented) at patient's floor/unit and/or counseling patient: Coding Level of Care Code 49176 SUB INP/OBS CARE 2/35MIN Diagnoses Acute right flank pain R10.9 Nephrolithiasis N20.0 Renal cyst N28.1
[2023-11-14] MEDS: ceFAZolin 2000MG 2,000 MG/15 ML SYR IV ONE (12:40)
--- NOTE | 2023-11-14 13:11 | Anesthesiology Consultation ---
Date of Service November 14, 2023 History Surgery Operation Date: 11/14/23 15:25 Proposed Procedures p Cysto, Right Ureteroscopy Retrograde Possible Laser Stone Treatment and Stent Placement - Molina Berrios MD Height/Weight Height: 5 ft 8 in Weight: 98.6 kg Allergies Allergy/AdvReac Type Severity Reaction Status Date / Time Penicillins Allergy Intermediate RASH-AMOXIC Verified 04/18/23 08:39 ILLIN tazobactam Allergy Intermediate RASH Verified 04/18/23 08:39 adhesive Allergy Mild Rash Verified 04/18/23 08:39 Medications Home Medications Medication Instructions Recorded Confirmed Last Taken tamoxifen 20 mg tablet 20 mg PO PM 03/07/20 11/13/23 11/06/23 levothyroxine 137 mcg capsule 137 mcg PO DAILY 05/15/22 11/13/23 11/07/23 omeprazole 20 mg capsule,delayed 20 mg PO DAILY 04/05/23 11/13/23 11/07/23 release multivitamin 1 tab PO DAILY 11/07/23 11/13/23 11/07/23 tamsulosin 0.4 mg capsule 0.4 mg PO DAILY #30 caps 11/11/23 11/13/23 Unknown ciprofloxacin HCl 500 mg tablet 500 mg PO Q12H #4 tabs 11/13/23 11/13/23 Unknown (Cipro) oxycodone 5 mg tablet 5 mg PO Q6H PRN Severe Pain (Scale 11/13/23 11/13/23 Unknown Score 7-10) Active Medications Generic Name Dose Route Start Last Admin Trade Name Freq PRN Reason Stop Dose Admin Ciprofloxacin 500 mg 11/13/23 22:25 11/14/23 08:38 Ciprofloxacin 500 Mg Tab PO 11/23/23 22:24 500 mg Q12 ROYER Administration Protocol Hydromorphone HCl 0.5 mg 11/13/23 16:23 11/14/23 07:30 Hydromorphone Inj 0.5 Mg/0.5 Ml Syr IV 11/27/23 16:22 0.5 mg Q4H PRN Administration Severe Pain (Scale 7, 8, 9,10) Sodium Chloride 1,000 mls @ 100 mls/hr 11/13/23 16:30 11/14/23 02:36 Nss IV 12/13/23 16:29 100 mls/hr .Q10H ROYER Administration Levothyroxine Sodium 137 mcg 02/16/24 06:30 11/14/23 06:16 Levothyroxine Sodium 137 Mcg Tablet PO 12/14/23 06:29 137 mcg DAILYBB ROYER Administration Multivitamins 1 tab 11/14/23 09:00 11/14/23 08:38 Multivitamin Tab PO 12/14/23 08:59 1 tab DAILY ROYER Administration Pantoprazole Sodium 40 mg 11/14/23 09:00 11/14/23 08:38 Pantoprazole 40 Mg Tab PO 12/14/23 08:59 40 mg DAILY ROYER Administration Tamoxifen Citrate 20 mg 11/13/23 22:25 11/13/23 23:25 Tamoxifen Citrate 10 Mg Tablet PO 12/13/23 22:24 20 mg PM ROYER Administration Tamsulosin HCl 0.4 mg 11/14/23 09:00 11/14/23 08:38 Tamsulosin Hcl 0.4 Mg Cap PO 12/14/23 08:59 0.4 mg DAILY ROYER Administration Past Medical History Medical History History of breast cancer Lazy eye Left Eye History of vaginal delivery x 2 Varicella without complication Hypothyroidism Hemangioma of skin Severe, Facial Past Family History Family History Grandmother (Paternal) , Passed in 80's of unknown Breast cancer Mother No problems noted. Father No problems noted. Brother No problems noted. Son No problems noted. Daughter No problems noted. Past Surgical History Surgical History History of laparoscopic appendectomy (04/05/23) Laparoscopic Appendectomy(Not Applicable) - Kareem Denton MD, FACS History of surgery As a child - Excision behind left ear - exploratory - negative History of cholecystectomy 07/30/2007 History of esophagogastroduodenoscopy (EGD) 08/03/2016 - Severe Esophagititis, food impaction History of lumpectomy of left breast 02/09/2020 - and SLN Biopsy S/P breast biopsy, left 01/03/2020 Social History Smoking Status: Never smoker Do You Dip or Chew Tobacco: No Hx Alcohol Use: Yes Alcohol type: wine alcohol intake frequency: a few times a month Alcohol Intake Frequency Comment: 1 glass wine per week Hx Substance Use: No substance use type: does not use Physical Exam Vital Signs Last Vital Signs Temp 36.5 C 11/14/23 08:01 Pulse 64 11/14/23 08:01 Resp 16 11/14/23 08:01 BP 107/73 11/14/23 08:01 Pulse Ox 95 11/14/23 08:01 O2 Del Method Room Air 11/14/23 08:01 Testing Laboratory Results 11/14/23 05:50 11/14/23 05:50 Urine Color Yellow 11/13/23 13:50 Urine Appearance Cloudy (Clear) A 11/13/23 13:50 Urine pH 5.0 (4.5-7.5) 11/13/23 13:50 Ur Specific [place] 1.013 (1.000-1.030) 11/13/23 13:50 Urine Protein Trace (Negative) H 11/13/23 13:50 Urine Glucose (UA) Negative (Negative) 11/13/23 13:50 Urine Ketones Negative (Negative) 11/13/23 13:50 Urine Nitrite Negative (Negative) 11/13/23 13:50 Ur Leukocyte Esterase 2+ (Negative) H 11/13/23 13:50 Urine WBC (Auto) >30 /hpf (0-5) H 11/13/23 13:50 Urine RBC (Auto) 0-4 /hpf (0-4) 11/13/23 13:50 U Hyaline Cast (Auto) 1-5 /lpf (0-5) 11/13/23 13:50 U Epithel Cells (Auto) >30 /lpf (0-5) H 11/13/23 13:50 Urine Bacteria (Auto) 1+ (Negative) H 11/13/23 13:50 11/13/23 13:50 Urine Culture - Preliminary Urine,Clean Catch Pin-point growth present, reincubating. 11/13/23 13:49 POC Ur Test NEG
[2023-11-14] MEDS ORDERED: MIDAZOLAM HCL 1 MG/ML 2ML VIAL ONE (15:43)
[2023-11-14] MEDS ORDERED: fentaNYL citrate PF 100 MCG/2 ML VIAL ONE (15:43)
[2023-11-14] MEDS ORDERED: LIDOCAINE 2% 2 ML VIAL/AMP(20MG/ML) INFIL ONE (16:20)
[2023-11-14] MEDS ORDERED: PROPOFOL IV EMULSION 10 MG/ML 20 ML VIAL IV ONE (16:20)
[2023-11-14] MEDS ORDERED: ONDANSETRON INJ 2 MG/ML 2 ML VIAL ONE (16:20)
[2023-11-14] MEDS ORDERED: DEXAMETHASONE SOD INJ 4 MG/ML VIAL ONE (16:20)
[2023-11-14] MEDS ORDERED: ONDANSETRON INJ 2 MG/ML 2 ML VIAL IV PRN (16:30)
[2023-11-14] MEDS ORDERED: fentaNYL citrate PF 100 MCG/2 ML VIAL IV PRN (16:30)
[2023-11-14] MEDS ORDERED: ePHEDrine sulfate 50 MG/ML AMP IV PRN (16:30)
[2023-11-14] MEDS ORDERED: ATROPINE SULFATE 0.1 MG/ML 10ML SYR IV PRN (16:30)
--- NOTE | 2023-11-14 16:54 | Operative Report ---
[facility] Post Operative Report Pre & Post Diagnosis Operation Date: 11/14/23 15:25 Pre-Op Diagnosis: Kidney Stone Post-Op Diagnosis: Kidney Stone I identified the patient and participated in the time-out.: Yes Procedure Operation Date: 11/14/23 15:25 Actual Procedures p Cystoscopy, Retrograde Pyelogram, Right ureteral stent Placement - Molina Berrios MD Surgeon Molina Berrios MD Freelance Recruiter None Estimated Blood Loss 0 Findings See Below Hydronephrosis with narrowing of the ureter at the UPJ, unclear whether this is a UPJ obstruction or extrinsic compression from a cyst. Successful right ureteral stent placement. Specimens Urine from right kidney for culture Drains 6 Japanese by 28 cm double-J ureteral stent in the right ureter Anesthesia Type MAC Complications none Disposition Accompanied Patient To Recovery: Yes Disposition: Recovery Room Indications This is a 48-year-old female followed by urology for nephrolithiasis and renal cysts. She has recently had right-sided flank pain. She was admitted to the hospital with some findings concerning for possible urinary tract infection and ongoing flank pain. She presents to the OR today for right ureteral stent placement and possible laser lithotripsy of a known stone in her kidney. Description of Procedure The patient was identified in the holding area and informed consent was confirmed. She was marked on the right side, then was taken to the operating room where anesthesia was initiated. She was placed in the dorsal lithotomy position with all pressure points appropriately padded. She was prepped and draped in the usual sterile fashion and a preoperative timeout was performed. A well-lubricated cystoscope was inserted per urethra and panendoscopy was performed. The urethra was normal in appearance. The bladder was of normal size with ureteral orifices in orthotopic position. The right ureteral orifice was identified and cannulated with a 5 Japanese open- ended catheter. A retrograde pyelogram was performed demonstrating the distal ureter was normal in course and caliber. At the level of the UPJ there was some narrowing. There was significant hydronephrosis of the collecting system. A 0.038" ZIPwire was advanced to the level of the kidney under fluoroscopic guidance. With the wire in place, there was drainage of turbid urine alongside the wire. I elected not to proceed with stone treatment, but just to place a stent. Over the wire, a 6 Japanese x 26 centimeter double-J ureteral stent was advanced. When the wire was removed, there were portions of the stent in the renal pelvis and the bladder, however it looked like the stent was slightly too short. The stent was removed, zip wire was replaced up to the kidney then a 6 Japanese by 28 cm double-J stent was positioned. When the wire was removed, the proximal curl was visualized in the kidney with x-ray, and the distal curl visualized in the bladder with the cystoscope. at this point the bladder was drained and all instrumentation was removed. The patient was then awakened from anesthesia and was brought to the PACU in stable condition. I attest to the content of the Intraoperative Record and any orders documented therein. Any exceptions are noted below.
--- NOTE | 2023-11-14 16:57 | Fluoroscopy Report ---
FL retrograde includes kub CLINICAL HISTORY: STENT PLACEMENT COMPARISON STUDY: None. FLUOROSCOPY TIME: 15 second. FLUOROSCOPY IMAGES: 1. Ka,r: Not obtained. FINDINGS: Retrograde opacification of the right renal collecting system followed by placement of a ri ght ureteral stent. Only the proximal portion of the stent is identified on this study but appears in good position. IMPRESSION: Fluoroscopic assistance as above. ACT 112: Negative or not required by law. Electronically signed by: Solitario Rod M.D. 11/14/2023 4:56 PM
--- NOTE | 2023-11-14 17:05 | Anesthesiology Progress Note ---
Date of Service November 14, 2023 Anesthesia Post Procedure Vital Signs Vital Signs: Temp Pulse Pulse Pulse Pulse Resp BP 11/14/23 17:00 80 16 128/79 11/14/23 16:50 36.1 C L 76 16 114/76 11/14/23 14:37 36.8 C 80 18 119/74 11/14/23 08:01 36.5 C 64 16 107/73 11/13/23 21:30 36.4 C L 20 140/92 11/13/23 19:31 77 11/13/23 19:30 146/81 H 11/13/23 18:30 75 18 11/13/23 18:00 77 19 11/13/23 17:30 81 21 11/13/23 17:15 81 18 Pulse Ox O2 Del Method 11/14/23 17:00 95 Room Air 11/14/23 16:50 99 Room Air 11/14/23 14:37 95 Room Air 11/14/23 08:01 95 Room Air 11/13/23 21:30 94 Room Air 11/13/23 19:31 11/13/23 19:30 11/13/23 18:30 96 11/13/23 18:00 96 11/13/23 17:30 96 11/13/23 17:15 Pain Intensity Lower Back: Pain Intensity: 4 Transfer of Care Handoff Completed per policy Notes Mental Status: alert / awake / arousable Patient Amnestic to Procedure: Yes Nausea / Vomiting: adequately controlled Pain: adequately controlled Airway Patency, RR, SpO2: stable & adequate BP & HR: stable & adequate Hydration State: stable & adequate Anesthetic Complications: no major complications apparent and Pt Satisfied with anesthetic care
[2023-11-14] MEDS: ceFAZolin 2000MG 2,000 MG/15 ML SYR IV SCH (17:29)
[2023-11-14] MEDS: KETOROLAC TROMETHAMINE 15 MG/ML VIAL IV PRN (19:26)
[2023-11-14] MEDS: PHENAZOPYRIDINE HCL 200 MG TAB PO PRN (20:42)
[2023-11-14] MEDS: ACETAMINOPHEN 500 MG TAB PO PRN (20:42)
[2023-11-14] MEDS: ONDANSETRON INJ 2 MG/ML 2 ML VIAL IV PRN (22:50)
[2023-11-15 00:23] VITALS: TEMP 97.7
[2023-11-15 07:43] LABS: Hematocrit (blood only) 37.9 % (37.0-47.0); Hemoglobin 13.3 g/dl (12.0-16.0); Mean Corpuscular Hgb Conc 35.1 g/dL (32.0-36.0); Mean Corpuscular Volume 88.3 fL (80.0-100.0); Mean Platelet Volume 9.3 fL (9.4-12.4); Platelet Count 216 K/uL (130-400); RDW Standard Deviation 38.7 fL (36.4-46.3); Red Blood Count 4.29 M/uL (4.20-5.40); White Blood Count 10.52 K/ul (4.8-10.8)
[2023-11-15 08:11] LABS: Calcium 8.5 mg/dl (8.6-10.3); Potassium 4.3 mmol/L (3.5-5.1)
[2023-11-15 08:14] VITALS: BP 124/82; PULSE 84; RESP 18; O2SAT 94
[2023-11-15 08:16] LABS: BUN Creatinine Ratio 11.5 (10-20); Est GFR (African American) 81.1 ml/min; Est GFR (Non-African American) 69.9 ml/min
[2023-11-15] MEDS: POLYETHYLENE (MIRALAX) 17 GM PACK PO PRN (09:11)
--- NOTE | 2023-11-15 10:22 | Urology Progress Note ---
Date of Service November 15, 2023 Assessment & Plan (1) Acute right flank pain: Plan: Flank pain seems to have slightly improved with stent placement. No plan for further intervention during this admission. Retrograde pyelogram demonstrated hydronephrosis, perhaps from UPJ obstruction or alternatively extrinsic compression of the ureter from one of her renal cysts. Stent appeared to be good in good position. With stent providing drainage, hopefully flank pain will continue to improve. Okay to do Tylenol, ibuprofen, tamsulosin, Pyridium for pain control and bladder spasm control If she is feeling well, hemodynamically stable, I think she would be reasonable for discharge home today with plan for close urologic follow-up. Recommend she continue her course of antibiotics as prescribed. (2) Renal cyst: (3) Nephrolithiasis: Admission and Anticipated Discharge Date Admission Date: November 13, 2023 Subjective Recovering appropriately s/p right ureteral stent placement on 11/15/2023. Reports some subjective sweats and chills overnight Having some urinary urgency and bladder spasms Has been on ciprofloxacin And receiving tamsulosin, Pyridium, Tylenol Labs reviewed: 11/15/2023: WBC 10.52, creatinine 0.96, glucose 136 Urine culture from 11/13 with pinpoint growth, urine from kidney from 11/14 pending Physical Exam Physical Exam: Well-appearing, NAD Respiratory: Breathing comfortably on room air Results & Data Vital Signs (Past 12 Hours) Vital Signs Temp Pulse Resp BP Pulse Ox O2 Del Method 11/15/23 08:13 36.5 C 84 18 124/82 94 Room Air 11/15/23 02:46 36.5 C 90 16 109/74 92 Room Air 11/15/23 00:22 36.5 C 87 16 129/76 95 Room Air PG Care Time/CCT Total # of Minutes Spent Total Time Spent with Patient: Total time spent is greater than 50% in coordination of care (as documented) at patient's floor/unit and/or counseling patient: Coding Level of Care Code 62160 SUB INP/OBS CARE 10/23MIN Diagnoses Acute right flank pain R10.9 Renal cyst N28.1 Nephrolithiasis N20.0
[2023-11-15] MEDS ORDERED: Nursing to Pharmacy Communication SCH (10:45)
[2023-11-15] MEDS: oxyCODONE HCL IR 5 MG TAB (IMMEDIATE RELEASE) PO PRN (11:32)
--- NOTE | 2023-11-15 12:30 | Discharge Summary ---
Discharge Summary Date of Service November 15, 2023 Notes For Next Care Provider Medication Changes From Visit -Continue home cipro -Continue tamsulosin -Precribed Pyridium Admission HPI Per Admitting Provider This is a 48-year-old female with PMH of hypothyroidism, GERD, history of breast cancer on tamoxifen, kidney stones who presents with worsening pain in the right groin and flank over the past few days. Follows with Dr. Berrios of urology and was seen on 11/11 for renal colic and unclear underlying cause thought to possibly be related to stone vs cysts. Discussed plans for possible intervention later this week. Was sent home on Cipro, oxycodone 5mg Q6H PRN and Flomax, which she has been taking. Continues to have pain in right groin radiating to flank with associated dysuria, nausea and fatigue. Subjective fever on Friday but has not felt as warm since. Denies any vomiting. No lightheadedness, CP, SOB, vomiting, abdominal pain, diarrhea or constipation. Principal Dx & Hospital Course #1 = Principal Diagnosis (1) Nephrolithiasis: (2) Renal cyst: (3) History of breast cancer: (4) Hypothyroidism: Plan Ms. Leon is a 48-year-old female with PMH of hypothyroidism, GERD, history of breast cancer on tamoxifen, kidney stones who presents with worsening pain in the right groin and flank over the past few days with evidence of a 9mm non- obstructing renal stone on KUB. Patient admitted on 11/13 for pain management and attempt at expulsion. Patient status post right ureteral stent 11/14 #Acute right flank pain #Right renal hydronephrosis 2/2 stone v obstructing cyst? #Nephrolithiasis #Renal cyst Follows with Dr. Berrios of urology and was seen on 11/11 for renal colic and unclear underlying cause thought to possibly be related to stone vs cysts Sent home on Cipro, oxycodone 5mg Q6H PRN and Flomax, but pain has intensified KUB with a 9 mm nonobstructing calculus projects over the right kidney CT OP: cyst in renal pelvic region, 33mm to 46mm since 2014. UA culture with pin point growth Continue IV fluids, pain control, antiemetics, bowel regimen Renal function at baseline. Continue to monitor with daily BMP UA with 2+ leuk esterases, urine bacteria 1+, nitrite negative. Continue PO Cipro per outpatient regimen -Continue cipro -Continue pyridium, tamsulosin -S/p stent placement 11/14, stone left in place for future removal -Urology unclear whether stone v cyst complicating issue -Pain management OTC with oxy prn for breakthrough if necessary Urology follow up #History of breast cancer Follows with Dr. Arndt, continue Tamoxifen #Hypothyroidism Chronic, stable. Continue levothyroxine Patient was ambulating halls and eating well on day of discharge. Reports some residual pain, but eager to move. Denies any new symptoms and ready for home. Discharge Exam Constitutional WD/WN, vitals as above Respiratory normal respiratory effort, lungs clear to auscultation Cardiovascular RRR, no murmur, no edema Musculoskeletal no cyanosis or clubbing, extremities motor strength 5/5 Updated Medication List Medication Instructions Recorded Confirmed Type tamoxifen 20 mg tablet 20 mg PO PM 03/07/20 11/13/23 History levothyroxine 137 mcg capsule 137 mcg PO DAILY 05/15/22 11/13/23 History omeprazole 20 mg capsule,delayed 20 mg PO DAILY 04/05/23 11/13/23 History release multivitamin 1 tab PO DAILY 11/07/23 11/13/23 History tamsulosin 0.4 mg capsule 0.4 mg PO DAILY #30 caps 11/11/23 11/13/23 Rx ciprofloxacin HCl 500 mg tablet 500 mg PO Q12H #4 tabs 11/13/23 11/13/23 Rx (Cipro) acetaminophen 500 mg tablet 1,000 mg (2 x 500 mg) PO Q8H PRN 11/15/23 Rx (Tylenol Extra Strength) pain #90 tabs oxycodone 5 mg tablet 5 mg PO Q8H PRN Severe Pain (Scale 11/15/23 Rx Score 7-10) #9 tabs phenazopyridine 200 mg tablet 200 mg PO TID PRN pain/bladder 11/15/23 Rx (Pyridium) spasm #21 tabs Hospital Stay Data Consultations 11/13/23 15:50 ED Decision to Admit Stat 11/13/23 16:38 Consult Urology Routine Procedures Performed Operation Date: 11/14/23 15:25 Actual Procedures p Cystoscopy, Retrograde Pyelogram, Right Stent Placement(Right) - Molina Berrios MD Diagnostic Imagining Performed 11/14/23 15:00 FL retrograde includes kub Routine Pending Results Patient Have Any Pending Studies at Discharge: No Discharge Instructions Given to Patient (Per Discharging Provider) You were admitted on 11/13/2023 to room 357-2 due to acute flank pain. It was noted that you have right sided nephrolithiasis and right renal cyst with subsequent hydronephrosis--or enlarged/fluid filled kidney. A stent was placed on 11/14/2023. You have future follow up with your Urologist to discuss stone removal and interventions for the cyst. Please continue the Ciprofloxacin 1 tablet two times daily until course is complete--you have this at home still. Please use tylenol 500mg-1000mg every 6-8 hours for pain. Pyridium was prescribed--you can take 1 tablet up to three times daily to help with spasms. This will turn your urine orange. Please continue Tamsulosin 0.4mg daily. Oxycodone 5 mg was prescribed to take for severe pain not controlled with [id number] agents. Please keep your follow up with Dr. Berrios for further evaluation and management of ongoing renal stone/cysts. Total Time Total Time Spent Total Time Spent (In Minutes): 45
== END 2023-11-15 13:04 | disposition home or self-care (01) | DRG 660 ==
LOC: ED 11:59 → SUATTDRO 19:12 → 3W 19:12 → EDINP 21:16 → 3W 21:51

== ENCOUNTER 2024-02-05 06:04 | Inpatient (IN) ==
--- NOTE | 2024-01-28 13:44 | Anesthesiology Consultation ---
Date of Service January 28, 2024 Assessment & Plan (1) Encounter for pre-operative examination: - Check test AM DOS - Infectious disease screening: Per assessment on 01/21/24: No known infectious disease contacts or current infectious disease symptoms. No noted recent Covid positive test result. - LUE limb restriction - S/P Cystoscopy, laser litho, stent (11/20/23): Grade view 1, MAC#3, ETT 7.0 at [facility] [place] Chart Review Chart Review: Acceptable Risk for Surgery and Patient NOT seen in Pre Admission Testing History Surgery Operation Date: 02/05/24 09:20 Proposed Procedures p Right Robotic Assisted Laparoscopic Cyst Decortication, Possible Pyeloplasty - Molina Berrios MD Height/Weight Height: 5 ft 8 in Weight: 97.522 kg Allergies Allergy/AdvReac Type Severity Reaction Status Date / Time Penicillins Allergy Intermediate Rash- Verified 01/28/24 13:42 Amoxicillin tazobactam Allergy Intermediate Rash Verified 01/28/24 13:42 adhesive Allergy Mild Rash Verified 01/21/24 12:01 Medications Home Medications Medication Instructions Recorded Confirmed Last Taken tamoxifen 20 mg tablet 20 mg PO HS 03/07/20 01/21/24 11/19/23 21:00 levothyroxine 137 mcg capsule 137 mcg PO QAM 05/15/22 01/21/24 11/20/23 07:30 omeprazole 20 mg capsule,delayed 20 mg PO Q2D 04/05/23 01/21/24 11/20/23 07:30 release multivitamin 1 tab PO QAM 11/07/23 01/21/24 11/20/23 07:30 acetaminophen 500 mg tablet 1,000 mg (2 x 500 mg) PO Q8H PRN 11/15/23 01/21/24 Unknown (Tylenol Extra Strength) pain #90 tabs Past Medical History Medical History Hemangioma of skin Severe, Facial History of breast cancer Left History of COVID-19 07/2023: Treated at [facility] [place] ER due to SOB Hx of renal calculi Hypothyroidism Lazy eye Left Limb alert care status LUE Past Family History Family History Grandmother (Paternal) , Passed in 80's of unknown Breast cancer Mother No problems noted. Father No problems noted. Brother No problems noted. Son No problems noted. Daughter No problems noted. Other No family history of adverse response to anesthesia Past Surgical History Surgical History History of cholecystectomy 07/30/2007 History of esophagogastroduodenoscopy (EGD) History of laparoscopic appendectomy (2022) Laparoscopic Appendectomy History of lumpectomy of left breast (2019) + SLN Biopsy History of surgery Exploratory Excision behind left ear, "negative" (as child) History of vaginal delivery x2 Hx of cosmetic surgery Multiple facial surgeries to repair "superficial blood vessels" (as child) Hx of eye surgery multiple eye surgeries as a child to repair the "lazy eye" S/P breast biopsy, left 2020 S/P cystoscopy with ureteral stent placement Cystoscopy, laser litho, stent (11/20/23): Grade view 1, MAC#3, ETT 7.0 at [facility] [place] Social History Smoking Status: Never smoker Do You Dip or Chew Tobacco: No Hx Alcohol Use: Yes Alcohol type: wine alcohol intake frequency: a few times a month Hx Substance Use: No substance use type: does not use Lab Results Anesthesia Preop Results Results Anesthesia Widget: WBC 5.80 K/ul (4.8-10.8) 01/27/24 Hgb 15.3 g/dl (12.0-16.0) 01/27/24 Hct 44.6 % (37.0-47.0) 01/27/24 Plt 246 K/uL (130-400) 01/27/24 Na 139 mmol/L (136-145) 01/27/24 K 3.3 mmol/L (3.5-5.1) L 01/27/24 Cl 109 mmol/L (98-107) H 01/27/24 CO2 23 mmol/L (21-32) 01/27/24 BUN 12 mg/dl (6-23) 01/27/24 Creat 0.81 mg/dl (0.6-1.2) 01/27/24 Glucose Level 96 mg/dl (70-99(Fasting)) 01/27/24 PT 10.5 Seconds (9.0-12.0) 12/19/23 INR 1.0 (0.9-1.1) 12/19/23 Testing Laboratory Results UA (12/16/23): small blood, negative nitrite/leuk est, + RBC Urine culture (01/27/24): pin-point growth reincubating (preliminary)- *surgeon- ordered testing* Electrocardiogram Date: 08/18/23 NSR at 95bpm. Cannot r/o anterior infarct, age undetermined. No significant change compared to 11/23/2019 per wire technician comparison. Chest X-Ray Date: 08/18/23 FINDINGS: No lines and tubes are seen. The cardiomediastinal silhouette is normal. The lungs are clear. No evidence of pleural effusion or pneumothorax. IMPRESSION: No acute abnormalities and in particular no radiographic evidence of pneumonia.
[~2024-02-05 06:04] MED LIST changes: +ALLERGY Noted to ORDERED Medication SCH; -MTR600X MT; -NITR1CAP32 PO; -OMEP20CA59 PO
--- OUTSIDE RECORDS SUMMARY | 2024-02-05 06:12 | External Medical Summary | Summary of Care ---
Author Name Unknown Organization [facility] Address [address] [facility] [place] [address] Phone [phone] Care Team Providers Care Seo Associate Name Role Phone Nannette Rock DO Primary Care Provider Reason for Visit * Reason Onset Date Comments abnormal pap 01/28/2024 Encounter Details Date Type Department Care Team (Late st Contact Info) Description 01/28/2024 Telephone Gynecology/Obstetrics [facility] [address] [place] [address] Lakesha Garrison PA-C [address] [place] [id number] abnormal pap Allergies Active Allergy Reactions Criticality Noted Date Comments Amoxicillin 10/23/2001 hives Dust 01/28/2023 Other Allergy (See Comments) Rash Low 01/25/2020 Adhesive Sensitive Oxycodone-Acetaminophe n Other (Please comment) 04/22/2011 Chest pain and shortness of breath documented as of this encounter (statuses as of 01/29/2024) Medications Medication Sig Dispensed Refills Start Date End Date Status lansoprazole DR (PREVACID) 30 MG CPDR Take 1 Capsule by mouth every other day. 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 0 Activ e Vitamin D3 25 MCG (1000 UT) Oral Tablet Chewable Take 2 Tablets by mouth in the morning. 0 Active Omeprazole 20 MG Oral Capsule Delayed Release (PriLOSEC) TAKE 1 CAPSULE BY MOUTH ONCE DAILY ONE HOUR BEFORE THE FIRST MEAL OF THE DAY 90 Capsule 2 09/03/2022 Active Levothyroxine Sodium 112 MCG Oral Tablet (Levoxyl)Indications: Acquired hypothyroidism Take 1 Tablet by mouth in the morning. (at least 30 min prior to breakfast or other meds). 30 Tablet 11 04/08/2023 Active Ciprofloxacin HCl 500 MG Oral Tablet (Cipro) Take 1 Tablet by mouth in the morning and 1 Tablet before bedtime. 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 HEMANGIOMA SKIN documented as of this encounter (statuses as of 01/29/2024) Resolved Problems Problem Noted Date Diagnosed Date Resolved Date Varicella without complication 11/17/2018 11/17/2018 Allergic conjunctivitis, bilateral 11/17/2018 11/17/2018 Encounter for supervision of other normal 09/10/2006 11/17/2018 Overview: ICD-10 update of inactive term Hypothyroidism 10/29/2004 11/07/2017 Normal , first 04/07/200302/2007 Female infertility 07/07/2002 9 documented as of this encounter (statuses as of 01/29/2024) Immunizations Name Administration Dates Next Due COVID-19 mRNA, LNP-s, No Pre serve, 2-Dose Series (Moderna) 11/08/2020,10/11/2020 DTaP Dipth/Tet/Acell Pertussis (Infanrix), Peds 06/02/2009 Diptheria/Tetanus (Adult) 03/09/1996 H1N1 2009 Influenza, Intranasal 10/17/2009 MMR - Measles/Mumps/Rubella Vaccine 04/17/1992 PPD 06/09/2013, 0,06/25/2006,2003,07/06/2002,07/10/2001 Seasonal Influenza, PF, 6 M & above, IM , (FluLaval or Fluzone) 06/17/2020,11/07/2017 Seasonal Influenza, Split, I IV3, With Preserve, Inj 07/14/2016,08/29/2011,10/17/2009,2001 TD, Preservative Free 06/26/2020 TDAP (age 11 and older)(Adacel) 06/02/2009 documented as of this encounter Social History Tobacco Use Types Packs/Day Years Used Date Smoking Tobacco: Never Smokeless Tobacco: Never Comments:no passive smoke Alcohol Use Standard Drinks/Week Comments Yes 0 (1 standard drink = 0.6 oz pur e alcohol) rare PHQ-2 Answer Date Recorded PHQ-2 Score 0 11/26/2019 Hunger Vital Sign Answer Date Recorded Within the past 12 months, y ou worried that your food would run out before you got the money to buy more. Never true 01/14/20 24 Within the past 12 months, t he food you bought just didn't last and you didn't have money to get more. Never true 01/14/2024 Sex and Gender Information Value Date Recorded Sex Assigned at Female 01/13/2024 2:35 PM EDT Gender Identity Female 01/13/2024 2:35 PM EDT Sexual Orientation Straight 01/14/2024 10 :06 AM EDT Job Start Date Occupation Industry Not on file Not on file Not on file documented as of this encounter Miscellaneous Notes * Telephone Encounter - Kirstie Johnston MED ASSIST - 01/29/2024 8:43 AM EDT Appts scheduled, pt aware. Pt requested to wait until after surgery, pt understood the recommendation of a sooner appt. * Telephone Encounter - Radha Perez RN - 01/28/2024 9:16 AM EDT Please assist with scheduling patient for follow up Ultrasound and EMB. Ultrasound should be completed first, then scheduled EMB. Pt is already aware of results and agreeable to scheduling. Per Lakesha would be ideal to have this done within the next week prior to her upcoming surgery, but if not possible, okay to schedule after recovered from surgery. * Telephone Encounter - Lakesha Garrison PA-C - 01/28/2024 9:06 AM EDT If we can get her in this week for ultrasound and EMB that would be ideal ahead of surgery. However, if she has to wait d/t recovery then we will have to. The sooner the better, but understand regarding upcoming surgery. * Telephone Encounter - Radha Perez RN - 01/28/2024 8:53 AM EDT Patient called and made aware of results. Patient verbalized understanding. She is agreeable to follow up US and EMB. She is questioning when this should be scheduled as she is having surgery next week to have cysts on kidney removed and then will be recovering from that for 4-6 weeks. Is this okayto schedule US and EMB for about 6 weeks from now? Please advise. * Telephone Encounter - Lakesha Garrison PA-C - 01/28/2024 8:00 AM EDT Please ensure aware. Pt pap smear return normal for cervical cancer screening: NILM/-HPV However, she did have endometrial cells present. This can be associated with period but it appears she was not on period at visit. LMP 12/12/2023. Therefore, would recommend pelvic ultrasound and then return for EMB shortly after ultrasound to evaluate further as she is on Tamoxifen which increasing her risk of endometrial hyperplasia/malignancy. Lakesha Garrison PA-C documented in this encounter Plan of Treatment Upcoming Encounters Date Type Department Care Team (Late st Contact Info) Description 02/10/2024 2:00 PM EDT Office Visit Hematology/Oncology [facility] [address] [id number] Nubia Paz CRNP [address] [place] [id number] 03/09/2024 10:30 AM EDT Imaging Radiology [facility] [address] [facility] [address] [place] [address] Scheduled Orders Name Type Priority Associated Diagnoses Orde r Schedule US PELVIS TRANS-VAGINAL NON-OB Medical Imaging Routine Endometrial cells on cervical Pap smear inconsistent w/LMP Personal history of tamoxifen therapy Ordered: 01/28/2024 Scheduled Procedures Name Priority Associated Diagnoses Date/Ti me COLONOSCOPY FLEXIBLE PROXIMA L DIAGNOSTIC Recall Screening for colon cancer Health Maintenance Due Date Last Done Comments Hepatitis B (1 of 3 - 19+ 3-dose series) 1994 Cologuard 2020 Fecal Occult Blood Test 2020 Sigmoidoscopy 2020 Depression Screening 11/26/2020 11/26/2019 COVID-19 Vaccine ( season) 2023 11/08/2020, 10/11/2020 TSH 10/04/2023 10/04/2022, 05/01, 03/19/2022, Additional history exists Influenza Vaccine (FLU shot) (Season Ended) 2024 06/17/2020, 11/07/2017, 07/14/2016, Additional history exists Mammogram 01/13/2025 01/14/2024, 12/28, 01/07/2023, Additional history exists Diabetes Screening 10/04/2025 10/04/2022, 0 05/29/2022, 05/29/2022, Additional history exists Pap Smear 01/13/2027 01/14/2024, 11/27, 12/14/2019, Additional history exists Lipid Panel 05/29/2027 05/29/2022, 05/31, 11/17/2018, Additional history exists Cervical Cancer Screening 01/13/2029 HPV/Co-Test 01/13/2029 01/14/2024 DTaP,Tdap,and Td Vaccines (4 - Td or Tdap) 06/26/2030 06/26/2020, 06/02/2009, 06/02/2009, Additional history exists Colonoscopy 08/07/2032 08/07/2022, 08/07/2022 Colorectal Cancer Screening 08/07/2032 GARDASIL-HPV IMMUNIZATION SERIES Aged Out No longer eligible based on patient's age to complete this topic MENINGOCOCCAL (MENACTRA/MENVEO) Aged Out No longer eligible based on patient's age to complete this topic Pneumococcal Vaccine: Pediatrics (0 to 5 Years) and At-Risk Patients (6 to 64 Years) Aged Out No longer eligible based on patient's age to complete this topic documented as of this encounter Medical Devices Not on filedocumented as of this encounter Visit Diagnoses Diagnosis Endometrial cells on cervical Pap smear inconsistent w/LMP- Primary Abnormal glandular Papanicolaou smear of cervix Personal history of tamoxifen therapy Follow-up examination following completed treatment with high-risk medications, not elsewhere classified documented in this encounter Care Teams Seo Associate Relationship Specialty Start Date End Date Nannette Rock DO [address] [place] [address] PCP - General Family Medicine 11/09/19 documented as of this encounter
--- OUTSIDE RECORDS SUMMARY | 2024-02-05 06:12 | External Medical Summary | Summary of Care ---
Author Name Unknown Organization [facility] Address [address] [facility] [place] [address] Phone [phone] Care Team Providers Care News Technical Director Name Role Phone Nannette Rock DO Primary Care Provider Reason for Visit * Reason Onset Date Comments abnormal pap 01/28/2024 Encounter Details Date Type Department Care Team (Late st Contact Info) Description 01/28/2024 Telephone Gynecology/Obstetrics [facility] [address] [place] [address] Lakesha Garrison PA-C [address] [place] [address] abnormal pap Allergies Active Allergy Reactions Criticality Noted Date Comments Amoxicillin 10/23/2001 hives Dust 01/28/2023 Other Allergy (See Comments) Rash Low 01/25/2020 Adhesive Sensitive Oxycodone-Acetaminophe n Other (Please comment) 04/22/2011 Chest pain and shortness of breath documented as of this encounter (statuses as of 01/28/2024) Medications Medication Sig Dispensed Refills Start Date [...] as of this encounter (statuses as of 01/28/2024) Active Problems Problem Noted Date Diagnosed Date S/P cholecystectomy 11/07/2023 Acute appendicitis 11/07/2023 Intraductal carcinoma of left breast 01/03/2020 Chronic urticaria 12/13/2019 Overview: since 09/30/2019 Elevated hemoglobin 11/26/2019 Gastroesophageal reflux disease without esophagi tis 11/17/2018 Acquired hypothyroidism 11/07/2017 ADVANCE DIRECTIVE INFORMATION 08/04/2007 Overview: No, Advance Directive brochure given to patient 08/04/07. HEMANGIOMA SKIN documented as of this encounter (statuses as of 01/28/2024) Resolved Problems Problem Noted Date Diagnosed Date Resolved Date Varicella without complication 11/17/2018 11/17/2018 Allergic conjunctivitis, bilateral 11/17/2018 11/17/2018 Encounter for supervision of other normal 09/10/2006 11/17/2018 Overview: ICD-10 update of inactive term Hypothyroidism 10/29/2004 11/07/2017 Normal , first 04/07/200302/2007 Female infertility 07/07/2002 9 documented as of this encounter (statuses as of 01/28/2024) Immunizations Name Administration Dates Next Due COVID-19 [...] encounter Miscellaneous Notes * Telephone Encounter - Radha Perez RN - 01/28/2024 9:16 AM EDT Please assist with scheduling patient for follow up Ultrasound and EMB. Ultrasound should be completed first, then scheduled EMB. Pt is already aware of results and agreeable to scheduling. Leonel Crowder would be ideal to have this done [...] upcoming surgery. * Telephone Encounter - Radha Peerz RN - 01/28/2024 8:53 AM EDT Patient [...] 02/10/2024 2:00 PM EDT Office Visit Hematology/[place] [address] [place] [address] Nubia Paz CRNP [address] [place] [address] Scheduled Orders Name Type Priority Associated Diagnoses [...] classified documented in this encounter Care Teams News Technical Director Relationship Specialty Start Date End Date Nannette Rock DO [address] [place] [address] PCP - General Family Medicine 11/09/19 documented as of this encounter
--- OUTSIDE RECORDS SUMMARY | 2024-02-05 06:12 | External Medical Summary | Summary of Care ---
Author Name Unknown Organization [facility] Address [address] [facility] [place] [address] Phone [phone] Care Team Providers Care Manager Site Name Role Phone Nannette Rock DO Primary Care Provider Reason for Visit * Reason Onset Date Comments abnormal pap 01/28/2024 Encounter Details Date Type Department Care Team (Late st Contact Info) Description 01/28/2024 Telephone Gynecology/Obstetrics [facility] [address] [place] [address] Lakesha Garrison PA-C [address] [place] [address] abnormal pap Allergies Active Allergy Reactions Criticality [...] encounter Miscellaneous Notes * Telephone Encounter - Lakesha Garrison PA-C [...] 02/10/2024 2:00 PM EDT Office [place] [facility] [place] [address] [facility] [address] Nubia Paz CRNP [address] [place] [address] Scheduled Orders Name Type Priority Associated Diagnoses [...] 2020 Depression Screening 11/26/2020 11/26/2019 COVID-19 Vaccine (2022- season) 2023 11/08/2020, 10/11/2020 TSH 10/04/2023 10/04/2022, [...] classified documented in this encounter Care Teams Manager Site Relationship Specialty Start Date End Date Nannette Rock DO [address] [place] [address] PCP - General Family Medicine 11/09/19 documented as of this encounter
--- OUTSIDE RECORDS SUMMARY | 2024-02-05 06:12 | External Medical Summary | Summary of Care ---
Author Name Unknown Organization [facility] Address [address] [facility] [place] [address] Phone [phone] Care Team Providers Care Data Center Technician Name Role Phone Nannette Rock DO Primary Care Provider Reason for Visit * Reason Onset Date Comments abnormal pap 01/28/2024 Encounter Details Date Type Department Care Team (Late st Contact Info) Description 01/28/2024 Telephone Gynecology/Obstetrics [facility] [address] [place] [address] Lakesha Garrison PA-C [address] [place] [address] abnormal pap Allergies Active Allergy Reactions Criticality [...] 11/08/2020,10/11/2020 DTaP Dipth/Tet/Acell Pertussis (Infanrix), Peds 06/02/2009 H1N1 2009 Influenza, Intranasal 10/17/2009 PPD 06/09/2013,10/17/2009,06/25/2006 Seasonal Influenza, PF, 6 M & above, IM , (FluLaval or Fluzone) 06/17/2020,11/07/2017 Seasonal Influenza, Split, I IV3, With Preserve, Inj 07/14/2016,08/29/2011,10/17/2009 TD, Preservative Free 06/26/2020 TDAP (age 11 [...] 02/10/2024 2:00 PM EDT Office Visit Hematology/Oncology [facility] [address] [place] [address] Nubia Paz CRNP [address] [facility] [place] [address] Scheduled Orders Name Type [...] season) 2023 11/08/2020, 10/11/2020 TSH 10/04/2023 10/04/2022, 08/09/2021, 03/19/2022, Additional history exists Influenza Vaccine (FLU [...] classified documented in this encounter Care Teams Data Center Technician Relationship Specialty Start Date End Date Nannette Rock DO [address] [place] [address] PCP - General Family Medicine 11/09/19 documented as of this encounter
[2024-02-05] MEDS: LR 15ML/HR IV SCH (06:36)
[2024-02-05] MEDS ORDERED: MIDAZOLAM HCL 1 MG/ML 2ML VIAL ONE (06:54)
[2024-02-05] MEDS ORDERED: PROPOFOL IV EMULSION 10 MG/ML 20 ML VIAL IV ONE (06:54)
[2024-02-05] MEDS ORDERED: LIDOCAINE 2% 2 ML VIAL/AMP(20MG/ML) INFIL ONE ×2 (06:54→06:55)
[2024-02-05] MEDS ORDERED: DEXAMETHASONE SOD INJ 4 MG/ML VIAL ONE (06:54)
[2024-02-05] MEDS ORDERED: ONDANSETRON INJ 2 MG/ML 2 ML VIAL ONE (06:54)
[2024-02-05] MEDS ORDERED: fentaNYL citrate PF 100 MCG/2 ML VIAL ONE ×2 (06:54→07:55)
[2024-02-05] MEDS ORDERED: ROCURONIUM BROMIDE 10 MG/ML 5 ML VIAL IV ONE ×10 (06:55)
[2024-02-05] MEDS ORDERED: Nursing to Pharmacy Communication SCH (07:00)
[2024-02-05] MEDS ORDERED: ATROPINE SULFATE 0.1 MG/ML 10ML SYR IV PRN (07:03)
[2024-02-05] MEDS ORDERED: DROPERIDOL 5 MG/2 ML VIAL IV PRN (07:03)
[2024-02-05] MEDS ORDERED: ePHEDrine sulfate 50 MG/ML AMP IV PRN (07:03)
--- NOTE | 2024-02-05 07:09 | History & Physical Bridge Note ---
Date of Service February 05, 2024 History & Physical Bridge Note I have examined the patient, reviewed the History & Physical and in the interval since the performance of the History & Physical I have noted the following changes of clinical significance: no changes noted
[2024-02-05] MEDS: ceFAZolin 2000MG 2,000 MG/15 ML SYR IV SCH ×2 (07:25→14:48)
[2024-02-05] MEDS ORDERED: PHENYLEPHRINE 100MCG/ML 10ML SYR IV ONE (07:57)
[2024-02-05] MEDS ORDERED: SUGAMMADEX SODIUM 200 MG/2 ML VIAL IV ONE (08:01)
[2024-02-05] MEDS ORDERED: METOPROLOL TARTRATE 1 MG/ML VIAL IV ONE (08:06)
[2024-02-05] MEDS ORDERED: PHENYLEPHRINE HCL 10 MG/ML VIAL ONE (08:13)
[2024-02-05] MEDS ORDERED: SODIUM CHLORIDE 0.9% PF INJ 10 ML VIAL ONE (08:19)
[2024-02-05] MEDS ORDERED: MoRPHine SULFATE 2 MG/ML CARP ONE (10:14)
[2024-02-05] MEDS: BUPIVACAINE 0.5 % 5 MG/1 ML MPF 30ML VIAL ONE (10:23)
--- NOTE | 2024-02-05 10:32 | Operative Report ---
PG Post Operative Report Pre & Post Diagnosis Operation Date: 02/05/24 07:30 Pre-Op Diagnosis: Renal Cyst, hydronephrosis, flank pain Post-Op Diagnosis: Renal Cyst, hydronephrosis, flank pain I identified the patient and participated in the time-out.: Yes Procedure Operation Date: 02/05/24 07:30 Actual Procedures p Right Robotic Assisted Laparoscopic Cyst Decortication(Right), intraoperative ultrasound- Molina Berrios MD Surgeon Molina Berrios MD Hydrometer Calibrator KONSTANTIN Hair, KONSTANTIN Cortez Estimated Blood Loss 10 Findings Consistent with Post-Op Diagnosis Specimens Right renal cyst wall Drains CONNER drain in right upper quadrant, Castaneda catheter per urethra Anesthesia Type General Complications none Disposition Accompanied Patient To Recovery: Yes Disposition: Recovery Room Indications This is a 48-year-old female followed by urology for renal cysts, nephrolithiasis, right flank pain, right hydronephrosis. Ongoing right flank p ain has been addressed with ureteroscopy and laser lithotripsy, percutaneous aspiration of her largest renal cyst, however she has had ongoing flank pain, possibly related to a more centrally located cyst that seem to be obstructing the ureter. She presents to the OR today for cyst decortication, possible pyeloplasty. Description of Procedure The patient was identified and informed consent was obtained. She was marked on the right side and was brought to the operating room where general anesthesia was initiated. She was placed in a flank position with the right side elevated. All pressure points were carefully padded. A timeout was then performed. A surgical marker was used to draw a line approximately 7 cm to the right of the umbilicus, in the mid clavicular area. Anticipated port sites were marked starting approximately 2 fingerbreadths below the costal margin. Subsequent ports were anticipated to be 6 to 7 cm spaced down this line. An incision was made at the second anticipated site, then dissection was carried down to the fascia. A Veress needle was used to obtain access to the peritoneum. Good position was confirmed with a negative aspiration, appropriate drop test and low opening insufflation pressure. The abdomen was then inflated with CO2 to 15 mmHg. The first robotic port was then placed and the camera was inserted. The abdominal cavity was surveyed. There was evidence of prior appendectomy and prior cholecystectomy. The ascending colon was somewhat adhesed to the abdominal sidewall. The lower portion of the kidney was somewhat ballotable, consistent with a renal cyst. No injury to any intra-abdominal organs was appreciated. The abdominal wall was to have some fat-containing ventral hernias. The remaining 3 robotic ports were placed under direct visualization. A 12 mm access services assistant port was then placed in the midline above the umbilicus. The robot was then docked. I reflected the colon along the white line of Toldt to expose Gerota's fascia. Once the colon was sufficiently reflected, the gonadal vessels and right ureter were identified. I carried dissection up along, tracking the ureter, looking for any crossing so that may be contributing to her hydronephrosis. As I was doing this, I kocherized the duodenum, to continue to follow the ureter. The ureter tracked up toward the upper pole of the kidney apparently tracking over a thin-walled cystic structure. I did not appreciate any crossing vessels the length of the ureter. Once this area was sufficiently exposed, I introduced the intraoperative ultrasound to survey the kidney. The lower pole, ballotable area appeared to be the cyst which had been previously aspirated. The suspected cyst toward the upper pole did not appear to be contiguous with her collecting system. I first addressed the lower pole cyst. This was entered in a safe area and approximately 200 cc of straw-colored fluid was drained there was a fair amount of redundant cyst wall. This was excised and then the edges were oversewn using a 3-0 V-Loc suture. The cyst wall was sent for pathologic analysis. There was good hemostasis. I then turned my attention toward the upper pole cyst. This was slightly more endophytic, although a safe area was identified. I sharply incised this and drained approximately 25 to 50 cc of straw-colored fluid. The cyst was further inspected and did not appear to be in any way related to the collecting system. Once the cyst was drained, I monitored for approximately 2 minutes to make sure that there was no reaccumulation of fluid that could suggest. There was much less redundant cyst wall with the cyst. I used interrupted [id number] 3-0 Monocryl suture to oversew the edges of the incision for hemostasis. There was good hemostasis at the conclusion of this. There was still good peristalsis of the ureter and urine in the Castaneda bag remained clear. The robot was dedocked. A CONNER drain was placed through the uppermost port incision and located near the right kidney. The incisions were then closed. The access services assistant site was closed with a deep 0 Vicryl suture in the fascial layer. All wounds were anesthetized using 0.5% Marcaine. Skin was closed using buried interrupted 4-0 Monocryls The patient was then awakened from anesthesia and brought to the PACU in stable condition. All sponge and instrument counts were correct at the end of the case. Of note, KONSTANTIN Hair, acted as bedside access services assistant for the majority of the case, helping with initial positioning, access, retraction, dissection and with closing. KONSTANTIN Cortez was also present for the duration of the procedure, learning to be bedside access services assistant for robotics. I attest to the content of the Intraoperative Record and any orders documented therein. Any exceptions are noted below.
[2024-02-05] MEDS: HYDROmorphone INJ 2 MG/ML SYR/VIAL IV PRN (10:48)
--- NOTE | 2024-02-05 11:55 | Anesthesiology Progress Note ---
Date of Service February 05, 2024 Anesthesia Post Procedure Vital Signs Vital Signs: Temp Pulse Pulse Resp BP Pulse Ox O2 Del Method 02/05/24 11:35 64 20 111/64 96 Nasal Cannula 02/05/24 11:20 36.7 C 68 18 102/65 96 Nasal Cannula 02/05/24 11:10 82 16 104/80 91 Room Air 02/05/24 11:00 77 20 118/71 94 Room Air 02/05/24 10:50 82 18 123/78 95 Room Air 02/05/24 10:40 80 18 135/74 98 Oxymask 02/05/24 10:29 36.5 C 90 16 126/95 94 Oxymask 02/05/24 06:25 37.3 C 66 18 135/70 96 Room Air O2 Flow Rate 02/05/24 11:35 2 02/05/24 11:20 2 02/05/24 11:10 02/05/24 11:00 02/05/24 10:50 02/05/24 10:40 4 02/05/24 10:29 6 02/05/24 06:25 Pain Intensity Abdomen: Pain Intensity: 4 Transfer of Care Handoff Completed per policy Notes Mental Status: alert / awake / arousable and participated in evaluation Nausea / Vomiting: adequately controlled Pain: adequately controlled Airway Patency, RR, SpO2: stable & adequate BP & HR: stable & adequate Hydration State: stable & adequate Anesthetic Complications: no major complications apparent and Pt Satisfied with anesthetic care
[2024-02-05] MEDS: LACTATED RINGER'S 1,000 ML IV SCH (12:00)
[2024-02-05] MEDS ORDERED: ONDANSETRON INJ 2 MG/ML 2 ML VIAL IV PRN (12:12)
[2024-02-05] MEDS ORDERED: HYDROmorphone INJ 0.5 MG/0.5 ML SYR IV PRN ×2 (12:12)
[2024-02-05] MEDS ORDERED: IBUPROFEN 200 MG TAB PO PRN (12:12)
[2024-02-05] MEDS: ACETAMINOPHEN 325 MG TAB PO SCH (12:35)
[2024-02-05] MEDS: PANTOprazole 40 MG TAB PO SCH (12:51)
[2024-02-05] MEDS: oxyCODONE HCL IR 5 MG TAB (IMMEDIATE RELEASE) PO PRN (19:50)
[2024-02-05] MEDS: HEPARIN SOD 5,000 UNIT/0.5 ML VIAL SQ SCH (19:52)
[2024-02-05] MEDS: DOCUSATE SODIUM 100 MG CAP PO SCH (19:52)
[2024-02-05] MEDS: TAMOXIFEN CITRATE 10 MG TABLET PO SCH (19:53)
[2024-02-06] MEDS: LEVOTHYROXINE SODIUM 137 MCG TABLET PO SCH (05:56)
[2024-02-06] MEDS: bisacodyL 5 MG TABEC PO ONE (08:19)
[2024-02-06 08:24] LABS: Basophils # (auto) 0.05 K/uL (0.00-0.20); Basophils % (auto) 0.5 %; Eosinophils # (auto) 0.03 K/uL (0.00-0.50); Eosinophils % (auto) 0.3 %; Hematocrit (blood only) 38.4 % (37.0-47.0); Hemoglobin 13.1 g/dl (12.0-16.0); Immature Granulocytes # (auto) 0.05 K/uL (0.01-0.20); Immature Granulocytes % (auto) 0.5 %; Lymphocytes # (auto) 1.92 K/uL (1.20-3.40); Lymphocytes % (auto) 19.2 %; Mean Corpuscular Hemoglobin 30.7 pg (25.0-34.0); Mean Corpuscular Hgb Conc 34.1 g/dL (32.0-36.0); Mean Corpuscular Volume 89.9 fL (80.0-100.0); Mean Platelet Volume 9.9 fL (9.4-12.4); Monocytes # (auto) 0.74 K/uL (0.11-0.59); Monocytes % (auto) 7.4 %; Neutrophils # (auto) 7.22 K/uL (1.40-6.50); Neutrophils % (auto) 72.1 %; Platelet Count 211 K/uL (130-400); RDW Coefficient of Variation 11.9 % (11.5-14.5); RDW Standard Deviation 38.8 fL (36.4-46.3); Red Blood Count 4.27 M/uL (4.20-5.40); White Blood Count 10.01 K/ul (4.8-10.8)
[2024-02-06 08:58] LABS: BUN Creatinine Ratio 14.3 (10-20); Calcium 8.3 mg/dl (8.6-10.3); Creatinine Clr Calc Pharmacy 99.9 ml/min; Est GFR (African American) 95.3 ml/min; Est GFR (Non-African American) 82.2 ml/min; Potassium 3.7 mmol/L (3.5-5.1)
--- NOTE | 2024-02-06 09:47 | Urology Progress Note ---
<Statement entered by Molina Berrios MD - 02/06/24 15:14> Feeling well today, having a bit of incisional pain especially at the drain site. Voiding without the catheter. No fevers or chills. Tolerating a diet. She has not done much ambulating yet and would like to work on this before discharge home, as she lives on the third floor. I encouraged her to be out of bed, up in the chair, ambulating with nursing as tolerated. PT ordered as well. Hopefully will be ready to go home tomorrow. CONNER drain can be removed this evening. -Molina Berrios MD. Date of Service February 06, 2024 Assessment & Plan (1) Renal cyst: Plan: Pt POD #1 s/p Right Robotic Assisted Laparoscopic Cyst Decortication with Dr. Berrios Afebrile with stable vitals Labs reviewedcreatinine 0.84, WBC 10.01, hemoglobin 13.1 Reports some incisional discomfort, adequately controlled with PO analgesia Incisions appropriate CONNER with minimal outputwill plan to remove prior to discharge Tolerating regular diet Order placed to remove Castaneda catheter this morning Encouraged ambulation Anticipate discharge to home later today or tomorrow if she continues to progress as expected Patient reassessed around lunch -she is voiding after catheter removal, has ambulated to the bathroom She feels somewhat nervous about going home today due to steps in her home Will consult physical therapy for evaluation Plan for discharge tomorrow Admission and Anticipated Discharge Date Admission Date: February 05, 2024 Subjective Patient seen and examined at bedside She is awake and eating breakfast Reports some discomfort in her upper incision with CONNER drain CONNER output 20 mL Pain adequately controlled with oral pain medication Tolerating regular diet Castaneda in place She has not yet ambulated Review of Systems Constitutional: as per Subjective / HPI Genitourinary: as per Subjective / HPI Physical Exam Constitutional: no acute distress Respiratory: normal respiratory effort; no respiratory distress and no labored breathing Gastrointestinal (Abdomen): Percussion/Palpation: abdomen soft Musculoskeletal: Head/Neck/Chest: normocephalic Skin: Incisions C/D/I with Dermabond CONNER drain with serosanguineous output, no drainage on gauze bandage Neurologic: moves all extremities and awake Psychiatric: Orientation: alert and oriented x 3 Genitourinary: Castaneda patent and draining clear yellow urine Results & Data Vital Signs (Past 12 Hours) Vital Signs Temp Pulse Pulse Resp BP Pulse Ox O2 Del Method 02/06/24 07:24 36.7 C 80 20 126/86 95 Room Air 02/06/24 04:00 36.8 C 85 14 124/72 96 Room Air 02/05/24 23:30 36.9 C 101 H 14 121/74 96 Room Air PG Care Time/CCT Total # of Minutes Spent Total Time Spent with Patient: Total time spent is greater than 50% in coordination of care (as documented) at patient's floor/unit and/or counseling patient: Coding Level of Care Code None Diagnoses Renal cyst N28.1
[2024-02-06] MEDS: oxyCODONE HCL IR 5 MG TAB (IMMEDIATE RELEASE) PO PRN (14:06)
[2024-02-06] MEDS: diphenhydrAMINE 50 MG/ML VIAL IV PRN (23:00)
[2024-02-07 07:13] VITALS: BP 111/76; PULSE 76; RESP 16; TEMP 98.1; O2SAT 92
[2024-02-07 07:53] LABS: Basophils # (auto) 0.05 K/uL (0.00-0.20); Basophils % (auto) 0.7 %; Eosinophils # (auto) 0.31 K/uL (0.00-0.50); Eosinophils % (auto) 4.6 %; Hematocrit (blood only) 37.1 % (37.0-47.0); Hemoglobin 12.4 g/dl (12.0-16.0); Immature Granulocytes # (auto) 0.03 K/uL (0.01-0.20); Immature Granulocytes % (auto) 0.4 %; Lymphocytes # (auto) 1.86 K/uL (1.20-3.40); Lymphocytes % (auto) 27.5 %; Mean Corpuscular Hemoglobin 30.4 pg (25.0-34.0); Mean Corpuscular Hgb Conc 33.4 g/dL (32.0-36.0); Mean Corpuscular Volume 90.9 fL (80.0-100.0); Mean Platelet Volume 9.9 fL (9.4-12.4); Monocytes # (auto) 0.54 K/uL (0.11-0.59); Neutrophils # (auto) 3.97 K/uL (1.40-6.50); Neutrophils % (auto) 58.8 %; Platelet Count 197 K/uL (130-400); RDW Coefficient of Variation 11.9 % (11.5-14.5); RDW Standard Deviation 39.8 fL (36.4-46.3); Red Blood Count 4.08 M/uL (4.20-5.40); White Blood Count 6.76 K/ul (4.8-10.8)
[2024-02-07 08:16] LABS: BUN Creatinine Ratio 14.9 (10-20); Calcium 8.3 mg/dl (8.6-10.3); Creatinine Clr Calc Pharmacy 113.5 ml/min; Est GFR (Non-African American) 95.8 ml/min; Potassium 3.8 mmol/L (3.5-5.1)
--- NOTE | 2024-02-07 09:01 | Urology Progress Note ---
Date of Service February 07, 2024 Assessment & Plan (1) Renal cyst: Plan: Status post right renal cyst decortication Progressing appropriately Labs stable Creatinine at baseline Vitals appropriate Discussed expected home care, she is comfortable with discharge home Order has been placed Admission and Anticipated Discharge Date Admission Date: February 05, 2024 Subjective Status post robotic cyst decortication Progressing appropriately Feels much better today than she did yesterday Ambulating without the assistance of a walker Tolerating a diet Feels that she is ready for discharge home Physical Exam Physical Exam: Incisions appropriate, abdomen soft, minimally tender in the right flank Results & Data Vital Signs (Past 12 Hours) Vital Signs Temp Pulse Resp BP Pulse Ox O2 Del Method 02/07/24 07:12 36.7 C 76 16 111/76 92 Room Air PG Care Time/CCT Total # of Minutes Spent Total Time Spent with Patient: Total time spent is greater than 50% in coordination of care (as documented) at patient's floor/unit and/or counseling patient: Coding Level of Care Code None Diagnoses Renal cyst N28.1
--- NOTE | 2024-02-10 16:47 | Discharge Summary ---
Date of Service February 10, 2024 Admission HPI Per Admitting Provider This is a 48-year-old female followed by urology for flank pain related to nephrolithiasis and renal cysts. She presented to the hospital for robot- assisted cyst decortication and was admitted postoperatively in good condition. Admission Exam Per Admitting Provider Constitutional well developed and well nourished; no acute distress Respiratory normal respiratory effort; no respiratory distress, does not use accessory muscles and no cough Cardiovascular well perfused Gastrointestinal (Abdomen) Inspection/Auscultation: abdomen normal to inspection; abdomen not distended Musculoskeletal Extremities: extremities normal to inspection Skin normal turgor; no rashes and no lesions Neurologic moves all extremities and awake Psychiatric Orientation: alert and oriented x 3 Principal Diagnosis Flank pain, renal cysts Discharge Exam Incisions appropriate, abdomen soft, minimally tender in the right flank Discharge Data Allergies Allergy/AdvReac Type Severity Reaction Status Date / Time Penicillins Allergy Intermediate Rash- Verified 02/05/24 06:25 Amoxicillin tazobactam Allergy Intermediate Rash Verified 02/05/24 06:25 adhesive Allergy Mild Rash Verified 02/05/24 06:25 Procedures Performed Operation Date: 02/05/24 07:30 Actual Procedures p Right Robotic Assisted Laparoscopic Cyst Decortication(Right) - Molina Berrios MD Hospital Course (1) Renal cyst: (2) Hydronephrosis of right kidney: Plan She underwent cyst decortication on 02/05/2024 and was admitted postoperatively in good condition. She was gradually able to tolerated diet, ambulate and her pain was controlled. She was discharged home on 02/07/2024. Total Time Total Time Spent Total Time Spent (In Minutes): 15 Discharge Plan Discharge Items Patient Disposition: Home - Home Health Services Reason For Visit: Renal Cyst Nephrolithiasis Discharge Diagnosis: Renal cysts, right hydronephrosis Activity: Per Instructions section Lifting: No more than 10 pounds Bathing: No limitations Sexual Activity: When tolerated Exercise/Sports: Gradually increase as tolerated Driving/Machine Use: Do not drive while on pain meds. Non-emergency contact: Urologist Call non-emergency contact if: your pain is not controlled, you have a fever, y our temperature is above 101, your wound has increased redness and your wound pain has increased Follow-up/Referrals: Nannette Rock, [Primary Care Provider] - Diet: Regular Addtl Attending Provider Instructions: The surgery you had was: Robot-assisted laparoscopic cyst decortication Please take all medications as prescribed and keep all follow-ups as scheduled. Please call our office at [phone] with any questions, concerns or need to reschedule appointments for any reason. We are happy to assist you. Medications: Take Tylenol every 6 hours for baseline pain control You can take Ibuprofen every six hours as well. If you were prescribed narcotics such as oxycodone, please take it according to the instructions on the label. Activity/Recovering at home: We recommend having someone with you for the first few days after surgery to help care for you. It is okay to shower starting on 02/06/2024. Please avoid swimming, bathing or using hot tub until incisions are well healed. Avoid driving until you are not requiring pain medication. Walk at least a few times a day. Increase your distance, as you feel able. Stairs in your home are okay. Please avoid strenuous or sexual activity until your follow-up. No lifting anything more than 10 pounds for 6 to 8 weeks Use a stool softener (i.e. Colace) to prevent constipation, especially the first two weeks post operatively. You should not be straining/pushing to have a bowel movement. Follow-up: We will have you come to the urology office in approximately 4 weeks for check in. If you are having any issues before this, please call. Call [facility] at [phone] if you experience: Chest pain or trouble breathing (call [phone] or go to the hospital). Fever of 101F or higher Symptoms of infection at incision site, including redness or swelling, warmth, or bad-smelling drainage Pain that is not controlled with medicines Pending Studies at Discharge: No Stand-Alone Forms: My Truffls, Pain - Opioid Pain Management, Smoking Cessation Medications and DC Order Prescriptions: New oxycodone 5 mg tablet 5 mg PO Q8H PRN (Reason: pain) Qty: 15 0RF Continued tamoxifen 20 mg tablet 20 mg PO HS levothyroxine 137 mcg capsule 137 mcg PO QAM omeprazole 20 mg capsule,delayed release(DR/EC) 20 mg PO Q2D acetaminophen [Tylenol Extra Strength] 500 mg Tablet 1,000 mg PO Q8H PRN (Reason: pain) Qty: 90 0RF multivitamin Tablet 1 tab PO QAM Discharge Orders: Discharge Order (Routine); Ordered 02/07/24 Ordered By: Frederic Jin/Other Patient Handouts: DVT Post Op Prevention Admission Data Admit Date/Time: 02/05/24 10:44 Attending Provider: Molina Berrios Admit Provider: Molina Berrios Primary Care Provider: Nannette Rock Other Interventions: Discharge Summary Assessment (RN) Last Done: 02/07/24 09:58 Coding Level of Care Code 19813 IN/OBS DISCH 30 MIN/LESS Diagnoses Renal cyst N28.1 Hydronephrosis of right kidney N13.30
== END 2024-02-07 15:22 | disposition home health service (06) | DRG 661 ==
LOC: ASU 06:04 → 3W 10:44
DX: Z86.16 Personal history of COVID-19; E03.9 Hypothyroidism, unspecified; N28.1 Cyst of kidney, acquired; N13.2 Hydronephrosis with renal and ureteral calculous obstruction; Z88.8 Allergy status to other drugs, medicaments and biological substances; Z88.0 Allergy status to penicillin

== ENCOUNTER 2024-07-03 14:46 | Inpatient (IN) ==
--- OUTSIDE RECORDS SUMMARY | 2024-07-03 14:52 | External Medical Summary | Summary of Care ---
Author Name Unknown Organization [facility] Address [address] [place] [address] Phone [phone] Care Team Providers Care Handy Worker Name Role Phone Medardo Rock DO Primary Care Provider Reason for Visit * Reason Onset Date Comments Advice 06/18/2024 Dr. Arndt Encounter Details Date Type Department Care Team (Late st Contact Info) Description 06/18/2024 Telephone Hematology/Oncology [facility] [place] [address] [facility] [address] [facility], Scheduling [address] [place] [address] Advice (Dr. Arndt ) Allergies Active Allergy Reactions Criticality Noted Date Comments Amoxicillin 10/23/2001 hives Dust 01/28/2023 Other Allergy (See Comments) Rash Low 01/25/2020 Adhesive Sensitive Oxycodone-Acetaminophe n Other (Please comment) 04/22/2011 Chest pain and shortness of breath documented as of this encounter (statuses as of 06/21/2024) Medications Medication Sig Dispensed Refills Start Date End Date Status Multivitamin Women 50+ Oral Tablet Take by mouth. Activ e Ciprofloxacin HCl 500 MG Oral Tablet (Cipro) Take 1 Tablet by mouth in the morning and 1 Tablet before bedtime. 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 90 Tablet 3 03/02/2024 Active Additional Information Patient not taking.Reported on 03/24/2024 Phenazopyridine HCl 200 MG Oral Tablet (Pyridium) 1 Tablet. 11/15/2023 Active Ondansetron HCl 8 MG Oral Tablet (Zofran)Indications: Malignant neoplasm of upper-outer quadrant of left breast in female, estrogen receptor positive (HCC) Take 1 Tablet by mouth every 8 hours as needed for Nausea. 30 Tablet 2 03/31/2024 Active Prochlorperazine Maleate 10 MG Oral Tablet (Compazine)Indicatio ns:Malignant neoplasm of upper-outer quadrant of left breast in female, estrogen receptor positive (HCC) Take 1 Tablet by mouth every 6 hours as needed for Nausea. 30 Tablet 3 03/31/2024 Active dexAMETHasone 4 MG Oral Tablet (Decadron)Indication s:Malignant neoplasm of upper-outer quadrant of left breast in female, estrogen receptor positive (HCC) Take 2 tablets (8mg) twice daily for 3 days starting the day prior to treatment. 60 Tablet 1 03/31/2024 Active Lidocaine-Prilocaine 2.5-2.5 % External Cream (Emla)Indications:Ma lignant neoplasm of upper-outer quadrant of left breast in female, estrogen receptor positive (HCC),Metastasis to bone (HCC) APPLY TO SKIN OVER MEDIPORT & COVER 1HR PRIOR TO ACCESSING. 30 g 2 04/02/2024 Active Diphenoxylate-Atropi ne 2.5-0.025 MG Oral Tablet (Lomotil)Indications :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) Take 1 Tablet by mouth 4 times a day as needed for Diarrhea. 30 Tablet 04/13/2024 Active Levothyroxine Sodium 112 MCG Oral Tablet (Levoxyl)Indications :Acquired hypothyroidism TAKE 1 TABLET BY MOUTH IN THE MORNING AT LEAST 30 MINUTES PRIOR TO BREAKFAST OR OTHER MEDS 30 Tablet 11 04/19/2024 Active Omeprazole 20 MG Oral Capsule Delayed Release (PriLOSEC) Take 1 Capsule by mouth in the morning. Take one pill by mouth first this in the morning. 90 Capsule 2 04/28/2024 Active Famotidine 20 MG Oral Tablet (Pepcid) Take 1 Tablet by mouth in the morning and 1 Tablet before bedtime. 60 Tablet 11 05/24/2024 Active Benzonatate 100 MG Oral CapsuleIndications:M alignant neoplasm of upper-outer quadrant of left breast in female, estrogen receptor positive (HCC),Metastasis to brain (HCC),Metastasis to bone (HCC),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),Encounter for long-term (current) drug use,Acute cough Take 1 Capsule by mouth 3 times a day as needed for Cough. 90 Capsule 2 06/09/2024 Active oxyCODONE HCl 5 MG Oral Tablet (Oxy IR)Indications:Carci noma of left breast metastatic to axillary lymph node (HCC) Take 1 Tablet by mouth every 4 hours as needed for Pain, Moderate. 30 Tablet 06/14/2024 Active Omeprazole 20 MG Oral Capsule Delayed Release (PriLOSEC) Take 1 Capsule by mouth in the morning. 1 hour before the first meal of the day. 30 Capsule 5 06/18/2024 Active documented as of this encounter (statuses as of 06/21/2024) Active Problems Problem Noted Date Diagnosed Date Malignant neoplasm of upper- outer quadrant of left breast in female, estrogen receptor positive 03/31/2024 Encounter for antineoplastic chemotherapy 2023 Carcinoma of left breast metastatic to axillary lymph node 03/24/2024 S/P cholecystectomy 11/07/2023 Acute appendicitis 11/07/2023 Intraductal carcinoma of left breast 01/03/2020 Chronic urticaria 12/13/2019 Overview: since 09/30/2019 Elevated hemoglobin 11/26/2019 Breast cancer 09/29/2019 Overview: Left DCIS Gastroesophageal reflux disease without esophagi tis 11/17/2018 Acquired hypothyroidism 11/07/2017 ADVANCE DIRECTIVE INFORMATION 08/04/2007 Overview: No, Advance Directive brochure given to patient 08/04/07. HEMANGIOMA SKIN documented as of this encounter (statuses as of 06/21/2024) Resolved Problems Problem Noted Date Diagnosed Date Resolved Date Varicella without complication 11/17/2018 11/17/2018 Allergic conjunctivitis, bilateral 11/17/2018 11/17/2018 Encounter for supervision of other normal 09/10/2006 11/17/2018 Overview: ICD-10 update of inactive term Hypothyroidism 10/29/2004 11/07/2017 Normal , first 04/07/2003 02/2007 Female infertility 07/07/2002 9 documented as of this encounter (statuses as of 06/21/2024) Immunizations Name Administration Dates Next Due COVID-19 mRNA, LNP-s, No Pre serve, 2-Dose Series (Moderna) 11/08/2020,10/11/2020 DTaP Dipth/Tet/Acell Pertussis (Infanrix), Peds 06/02/2009 Diptheria/Tetanus (Adult) 03/09/1996 H1N1 2009 Influenza, Intranasal 10/17/2009 MMR - Measles/Mumps/Rubella Vaccine 04/17/1992 PPD 06/09/2013, 0,06/25/2006,2003,07/06/2002,07/10/2001 Seasonal Influenza, PF, 6 M & above, IM , (FluLaval or Fluzone) 06/17/2020,11/07/2017 Seasonal Influenza, Trivalen t, (IIV3), with Preserv, (Fluzone) 07/14/2016,08/29/2011,10/17/2009,2001 TD, Preservative Free 06/26/2020 TDAP, Age 7 and older, IM (Adacel) 06/02/2009 documented as of this encounter Social [...] money to get more. Never true 01/14/2024 Childcare Answer Date Recorded Do you feel overwhelmed with taking care of a child, family member or friend? No 01/14/2024 Does your family need help f inding childcare? (Household - for ages 0-17 years) Not on file 01/14/2024 Clothing Answer Date Recorded Have you been unable to get clothing when it was really needed? No 01/14/2024 Is your family able to get c lothes or diapers when needed? (Household - for ages 0-17 years) Not on file 01/14/2024 Personal Safety Answer Date Recorded Do you feel unsafe or have concerns for your saf ety? No 01/14/2024 Do you have concerns for you r family's safety? (Household - for ages 0-17 years) Not on file 01/14/2024 Utilities Answer Date Recorded Do you have trouble paying y our heating, water, or electric bill? No 01/14/2024 Is your family able to pay t he heat, water, or electric bill? (Household - for ages 0-17 years) Not on file 01/14/2024 Does your family have access to good internet? (Household - for ages 0-17 years) Not on file 01/14/2024 Employment Status Answer Date Recorded Are you unemployed or without regular income? No 01/14/2024 Does the household have a [facility] source of income? (Household - for ages 0-17 years) Not on file 01/14/2024 Social Connections Answer Date Recorded How often do you feel lonely or isolated from th ose around you? Never 01/14/2024 Financial Resource Strain Answer Date R ecorded Do you have any trouble payi ng for your medications, or do you think you might in the future? No 01/14/2024 Does your family have troubl e paying for medicine? (Household - for ages 0-17 years) Not on file 01/14/2024 Transportation Needs Answer Date Record ed READ ONLY Do you have troubl e getting a ride to medical visits or work? Never True 01/14/2024 Does your family have a hard time getting a ride to doctors visits? (Household - for ages 0-17 years) Not on file 01/14/2024 Has lack of transportation k ept you from medical appointments, meetings, work, or from getting things needed for daily living? Check all that apply. (Adult - for ages 18 years and over) Not on file 01/14/2024 Do you (or your family) have trouble finding or paying for a ride (transportation)? (Household - for ages 0-17 years) Not on file 01/14/2024 Housing Stability Answer Date Recorded Do you currently live in a s helter or have no steady place to sleep at night? No 01/14/2024 READ ONLY Do you think you a re at risk of becoming homeless? No 01/14/2024 Does your family worry about paying for your home or becoming homeless? (Household - for ages 0-17 years) Not on file 0 01/14/2024 Are you homeless or worried that you might be in the future? (Adult - for ages 18 years and over) Not on file Are you (or your family) kendall eless or worried that you might be in the future? (Household - for ages 0-17 years) Not on file Food Insecurity Answer Date Recorded Do you need food for this week? No 01/14/2024 Are you able to get enough f ood for your family? (Household - for ages 0-17 years) Not on file 01/14/2024 Does your family need food t his week? (Household - for ages 0-17 years) Not on file 01/14/2024 Do you always have enough fo od for your family? (Household - for ages 0-17 years) Not on file 01/14/2024 Sex and Gender Information Value Date Recorded Sex Assigned at Female 01/13/2024 2:35 PM EDT Gender Identity Female 01/13/2024 2:35 PM EDT Sexual Orientation Straight 01/14/2024 10 :06 AM EDT Job Start Date Occupation Industry Not on file Not on file Not on file documented as of this encounter Miscellaneous Notes * Telephone Encounter - Lili Lee RN - 06/21/2024 8:48 AM EDT Called patient. She states that she still didn't feel well Friday evening, but Friday she was able to eat a bit and has been able to increase how much she eats each day since. She did pick pulling machine tender the omeprazole and start that. She went for her echo today, and they told her her BP was a little lower than usual- 100s/70s. She denies dizziness, states that she is drinking fluids, feels well overall. Advised her to push PO fluid intake and call if she feels dizzy/ lightheaded at all. Patient verbalized understanding. * Telephone Encounter - Francesca Myles OSA - 06/21/2024 8:42 AM EDT We received a call back from Tiffanie. She was returning Lili's recent call. Please give Tiffanie a call back at your earliest convenience. She can be reached at [phone]. Thank you! * Telephone Encounter - Lili Lee RN - 06/21/2024 8:32 AM EDT Left message for patient to return call. * Addendum Note - Medardo Rock DO - 06/18/2024 4:08 PM EDTAddended by: MEDARDO ROCK on: 06/18/2024 04:08 PM Modules accepted: Orders * Telephone Encounter - Medardo Rock DO - 06/18/2024 4:07 PM EDT Omeprazole should be covered- resent * Telephone Encounter - Lili Lee RN - 06/18/2024 2:[address] Arndt: "Blood workup done on 06/18/2024: -BUN/Creat: 7/1.0, Calcium 3.0, normal LFT other than bilirubin level of 1.7 -WBC 73820, Hemoglobin and hematocrit -15.3/44.9, Platelet count of [id number] Hypokalemia noted Would like to give her IV potassium 20 mEq x 1 dose along with IV fluid. Would like to start oral potassium 10 mEq twice a day." Spoke to patient, she verbalized understanding. She notes that her reported pain from 06/14 went away by the next day- did not need the oxycodone, but has it on hand for her next cycle if needed. She states that her diarrhea is stable with lomotil- estimates 3 episodes a day on the worst days. * Addendum Note - Salty Arndt MD - 06/18/2024 10:17 AM EDTAddended by: SALTY ARNDT on: 06/18/2024 10:17 AM Modules accepted: Orders * Telephone Encounter - Salty Arndt MD - 06/18/2024 10:08 AM EDT Ordered IV hydration * Telephone Encounter - Lili Lee RN - 06/18/2024 9:01 AM EDT Patient received C4 THP on 06/09/24, udenyca 06/10/24. Called and spoke to patient. She states that she has a "burning" feeling, feels like acid reflux. Notes chronic issues with reflux, had been on omeprazole but her insurance stopped covering it so shehad to switch to pepcid BID. She does not feel pepcid has been working as well for her since switching. Advised patient that decadron premed can also exacerbate reflux. She states that she has been throwing up liquid, has not been able to keep anything down. Feels very weak, but denies dizziness. Asked patient to come in for hydration- she states that she can be here around 12:30/ 12:45. Message sent to scheduling to add her. Dr Arndt: Please place order for patient to receive 1L NSS over [address] Rock: Please advise- is there alternative medication patient could try for reflux? * Telephone Encounter - Enma Floyd OSA - 06/18/2024 8:39 AM EDT What is the reason for call? Pt has not been able to eat for the past 2-3 days, is having trouble drinking and throwing up clear liquid and bile. What Clinic is the patient trying to reach? [facility]- Is the clinic open? Yes- Other: transfer to specialty Please contact pt at [phone]. Thank you. documented in this encounter Plan of Treatment Upcoming Encounters Date Type Department Care Team (Late st Contact Info) Description 06/22/2024 8:45 AM EDT Imaging Radiology [address] [place] [address] 06/30/2024 7:40 AM EDT Laboratory Laboratory [facility] [address] [place] [phone] Nataliia, Lab [address] [place] [address] 06/30/2024 8:15 AM EDT Office Visit Hematology/Oncology [facility] [place] [address] [facility] [place] [phone] Salty Arndt MD [address] [facility] [place] [address] 06/30/2024 8:45 AM EDT Hem/Onc Treatment Hematology/Oncology Treatment, [place] [address] [place] [phone] Nataliia, Chair 7 Hem Onc [facility] [place] [address] [facility] [place] [address] Scheduled Procedures Name Priority Associated Diagnoses Date/Ti me COLONOSCOPY FLEXIBLE PROXIMA L DIAGNOSTIC Recall Screening for colon cancer Health Maintenance Due Date Last Done Comments Pneumococcal Vaccine: Pediatrics (0 to 5 Years) and At-Risk Patients (6 to 64 Years) (1 of 2 - PCV) 1981 Hepatitis B Vaccine (1 of 3 - 19+ 3-dose series) 1994 Cologuard 2020 Fecal Occult Blood Test 2020 Sigmoidoscopy 2020 Depression Screening 11/26/2020 11/26/2019 COVID-19 Vaccine (3 - Moderna risk series) 12/06/2020 11/08/2020, 10/11/2020 Influenza Vaccine (FLU shot) (#1) 2024 06/17/2020, 11/07/2017, 07/14/2016, Additional history exists Mammogram 01/13/2025 01/14/2024, 12/28, 01/07/2023, Additional history exists TSH 03/24/2025 03/24/2024, 0 02/2023, 05/29/2022, Additional history exists Pap Smear 01/13/2027 01/14/2024, 11/27, 12/14/2019, Additional history exists Lipid Panel 05/29/2027 05/29/2022, 05/31, 11/17/2018, Additional history exists Diabetes Screening 06/18/2027 06/18/2024, 0 06/09/2024, 05/19/2024, Additional history exists Cervical Cancer Screening 01/13/2029 HPV/Co-Test 01/13/2029 01/14/2024 DTap/Tdap Vaccines (4 - Td or Tdap) 06/26/2030 06/26/2020, 06/02/2009, 06/02/2009, Additional history exists Colonoscopy 08/07/2032 08/07/2022, 08/07/2022 Colorectal Cancer Screening 08/07/2032 HPV (Gardasil) Vaccine Aged Out No lo nger eligible based on patient's age to complete this topic MENINGOCOCCAL (MENACTRA/MENVEO) Aged Out No longer eligible based on patient's age to complete this topic documented as of this encounter Medical Devices Implanted Type Area Crate Repairer Device Identifier Shelf Expiration Date Model / Serial / Lot Port Implant [id number] Poly Cath - [id number] Implanted:Qty : 1 on 03/31/2024 by Kesha Orlando MD at OR [facility] Right: Subclavian CR BARD : PERIPHERAL VASCULAR 02/26/2025 [id number] / / [id number] documented as of this encounter Visit Diagnoses Diagnosis Malignant neoplasm of upper-outer quadrant of left breast in female, estrogen receptor positive (HCC)- Primary 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 Question Answer Comments Discussion of Advance Directives occurred with: Patient Care Teams Handy Worker Relationship Specialty Start Date End Date Medardo Rock DO [address] [place] [address] PCP - General Family Medicine 11/09/19 documented as of this encounter
--- OUTSIDE RECORDS SUMMARY | 2024-07-03 14:52 | External Medical Summary | Summary of Care ---
Author Name Unknown Organization [facility] Address [address] [place] [address] Phone [phone] Care Team Providers Care Welder Pipe Making Name Role Phone StewcarlosNannette DO Primary Care Provider Encounter Details Date Type Department Care Team (Late st Contact Info) Description 07/02/2024 Referral Triage Care Coordination and Integration [address] [place] [address] Mariaelena James, RAFA [address], [place] [id number] Allergies Active Allergy Reactions Criticality Noted Date Comments Amoxicillin 10/23/2001 hives Dust 01/28/2023 Other Allergy (See Comments) Rash Low 01/25/2020 Adhesive Sensitive Oxycodone-Acetaminophe n Other (Please comment) 04/22/2011 Chest pain and shortness of breath documented as of this encounter (statuses as of 07/02/2024) Medications Medication Sig Dispensed Refills Start Date [...] before bedtime. 60 Tablet 11 05/24/2024 Active Additional Information Patient not taking.Reported on 06/30/2024 Benzonatate 100 MG Oral CapsuleIndications:M alignant neoplasm [...] for Pain, Moderate. 30 Tablet 06/14/2024 Active Potassium Chloride ER 10 MEQ Oral Tablet Extended ReleaseIndications:C arcinoma of left breast metastatic to axillary lymph node (HCC),Hypokalemia Take 1 Tablet by mouth in the morning and 1 Tablet before bedtime. 60 Tablet 1 06/18/2024 Active Omeprazole 20 MG Oral Capsule Delayed Release (PriLOSEC) Take 1 Capsule by mouth in the morning. 1 hour before the first meal of the day. 30 Capsule 5 06/18/2024 Active documented as of this encounter (statuses as of 07/02/2024) Active Problems Problem Noted Date Diagnosed Date [...] as of this encounter (statuses as of 07/02/2024) Resolved Problems Problem Noted Date Diagnosed Date Resolved Date Varicella without complication 11/17/2018 11/17/2018 Allergic conjunctivitis, bilateral 11/17/2018 11/17/2018 Encounter for supervision of other normal 09/10/2006 11/17/2018 Overview: ICD-10 update of inactive term Hypothyroidism 10/29/2004 11/07/2017 Normal , first 04/07/200302/2007 Female infertility 07/07/2002 9 documented as of this encounter (statuses as of 07/02/2024) Immunizations Name Administration Dates Next Due COVID-19 mRNA, LNP-s, No Pre serve, 2-Dose Series (Moderna) 11/08/2020,10/11/2020 DTaP Dipth/Tet/Acell Pertussis (Infanrix), Peds 06/02/2009 H1N1 2009 Influenza, Intranasal 10/17/2009 PPD 06/09/2013,10/17/2009,06/25/2006 Seasonal Influenza Vac., MDV , IM, 0.5 mL (Fluzone) 07/14/2016,08/29/2011,10/17/2009 Seasonal Influenza, PF, 6 M & above, IM , (FluLaval or Fluzone) 06/17/2020,11/07/2017 TD, Preservative Free 06/26/2020 TDAP, Age 7 [...] No 01/14/2024 Does the household have a [employer] source of income? (Household - for ages [...] on file documented as of this encounter Plan of Treatment Upcoming Encounters Date Type Department Care Team (Late st Contact Info) Description 07/21/2024 11:00 AM EDT Laboratory Laboratory [facility] [address] [place] [address] [phone] [place] [address] 07/21/2024 11:30 AM EDT Office Visit Hematology/Oncology [facility] [address] [place] [phone] Jada Jarquin CRNP [address] [place] [address] [place] [address] 07/21/2024 12:00 PM EDT Hem/Onc Treatment Hematology/Oncology Treatment, [place] [address] [place] [address] [place], Chair 6 Hem Onc [facility] [address] [place] [address] 10/01/2024 10:35 AM EST Cardiac Studies Cardiac Studies, [facility], [place] [address] [place] [address] Scheduled Procedures Name Priority Associated Diagnoses Date/Ti [...] 01/07/2023, Additional history exists TSH 03/24/2025 03/24/2024, 02/2023, 05/29/2022, Additional history exists Pap Smear 01/13/2027 01/14/2024, 11/27, 12/14/2019, Additional history exists Lipid Panel 05/29/2027 05/29/2022, 05/31, 11/17/2018, Additional history exists Diabetes Screening 06/30/2027 06/30/2024, 0 06/18/2024, 06/09/2024, Additional history exists Cervical Cancer Screening 01/13/2029 [...] this encounter Medical Devices Implanted Type Area Home Paraprofessional Device Identifier Shelf Expiration Date Model / Serial / Lot Port Implant W8f Poly Cath - [id number] Implanted:Qty : 1 on 03/31/2024 by Kesha Orlando MD at OR [facility] Right: Subclavian CR BARD : PERIPHERAL VASCULAR 02/26/2025 [id number] / / [id number] documented as of this encounter Advance Directives * Full Code (Latest Code Status on File) Date Activated Date Inactivated Comments 03/31/2024 12:17 PM 03/31/2024 7:50 PM This order re flects the patients wishes and were consensually agreed upon. Question Answer Comments Discussion of Advance Directives occurred with: Patient Care Teams Welder Pipe Making Relationship Specialty Start Date End Date Nannette Rock DO [address] [place] [address] PCP - General Family Medicine 11/09/19 documented as of this encounter
--- OUTSIDE RECORDS SUMMARY | 2024-07-03 14:52 | External Medical Summary ---
Author Name Unknown Address Unknown Organization K09:[facility] [address] [place] [address] Laboratory Report Ordering Provider Test Date Status SANDEE POND 06/30/2024 07:58:54 Final Observation Date Value Abnormality Reference (Units ) Status BUN 06/30/2024 07:58:54 7 6-20 (mg/dL) Final Creatinine 06/30/2024 07:58:54 0.8 0.5-1.0 (mg/dL) Final Glomerular filtration rate/1.73 sq M.predicted [Volume Rate/Area] in Serum, Plasma or Blood by Creatinine-based formula (CKD-EPI) 06/30/2024 07:58:54 86 >=60 (mL/min) Final eGFR is calculated based on the CKD-EPI 2020 equation. Sodium 06/30/2024 07:58:54 143 135-146 (m mol/L) Final Potassium 06/30/2024 07:58:54 4.6 3.5-5.1 (m mol/L) Final Cl 06/30/2024 07:58:54 108 Above high normal 98 -107 (mmol/L) Final CO2 06/30/2024 07:58:54 24 22-32 (mmo l/L) Final Anion gap 06/30/2024 07:58:54 11 7-15 (mmol /L) Final Glucose 06/30/2024 07:58:54 152 Above high normal 70 -120 (mg/dL) Final Albumin 06/30/2024 07:58:54 4.1 3.8-5.0 (g /dL) Final AST (Aspartate aminotransferase) 06/30/2024 07:58:54 30 10-35 (U/L) Fin al Alk Phos 06/30/2024 07:58:54 83 35-130 (U/ L) Final Bilirubin, Total 06/30/2024 07:58:54 1.4 Above high no rmal <=1.2 (mg/dL) Final Calcium 06/30/2024 07:58:54 10.0 8.4-10.2 ( mg/dL) Final Protein 06/30/2024 07:58:54 6.8 6.0-8.3 (g /dL) Final ALT (Alanine aminotransferase) 06/30/2024 07:58:54 40 Above high normal 10-35 (U/L) Final Performing Location [facility] [address] [place] [address]
--- OUTSIDE RECORDS SUMMARY | 2024-07-03 14:52 | External Medical Summary | Summary of Care ---
Author Name Unknown Organization [facility] Address [address] [place] [address] Phone [phone] Care Team Providers Care Sueding Machine Tender Name Role Phone Nannette Rock DO Primary Care Provider Reason for Visit * Reason Comments Medication Administration Udenyca * Episode Based Medications (Routine) - Authorized Specialty Diagnoses / Procedures Referred By Pete cedeno Referred To Contact Diagnoses Encounter for antineoplastic chemotherapy Malignant neoplasm of upper-outer quadrant of left breast in female, estrogen receptor positive (HCC) 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) Procedures WI INJECTION, PERTUZUMAB, 1 MG WI INJ ONTRUZANT 10 MG WI INJECTION, UDENYCA 0.5 MG WI DOCETAXEL INJECTION Johnnie Arndt MD [address] [facility] [place] [address] Anc Hem/Onc [address] [phone] Referral ID Status Reason Start Date Expiration Date V isits Requested Visits Authorized [id number] Authorized 03/31/2024 09/28/2099 999 99 Encounter Details Date Type Department Care Team (Latest Contact Info) Description 07/01/2024 3:00 PM EDT Immunization/ Injection Hematology/Oncology Treatment, [address] [phone] Nataliia, Chair [address] Hem Onc [address] [place] [address] Encounter for antineoplastic chemotherapy*; Malignant neoplasm of upper-outer quadrant of left breast in female, estrogen receptor positive (HCC); 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) Allergies Active Allergy Reactions Criticality Noted Date Comments Amoxicillin 10/23/2001 hives Dust 01/28/2023 Other Allergy (See Comments) Rash Low 01/25/2020 Adhesive Sensitive Oxycodone-Acetaminophe n Other (Please comment) 04/22/2011 Chest pain and shortness of breath documented as of this encounter (statuses as of 07/01/2024) Medications Medication Sig Dispensed Refills Start Date [...] as of this encounter (statuses as of 07/01/2024) Active Problems Problem Noted Date Diagnosed Date [...] as of this encounter (statuses as of 07/01/2024) Resolved Problems Problem Noted Date Diagnosed Date Resolved Date Varicella without complication 11/17/2018 11/17/2018 Allergic conjunctivitis, bilateral 11/17/2018 11/17/2018 Encounter for supervision of other normal 09/10/2006 11/17/2018 Overview: ICD-10 update of inactive term Hypothyroidism 10/29/2004 11/07/2017 Normal , first 04/07/20030 02/2007 Female infertility 07/07/2002 9 documented as of this encounter (statuses as of 07/01/2024) Immunizations Name Administration Dates Next Due COVID-19 [...] No 01/14/2024 Does the household have a re gular source of income? (Household - for ages [...] on file documented as of this encounter Nursing Notes * Carli Singh LPN - 07/01/2024 3:23 PM EDT Udenyca administered SQ into the right upper extremity per standing order. Patient tolerated injection. documented in this encounter Plan of Treatment Upcoming Encounters Date Type Department Care Team (Late st Contact Info) Description 07/21/2024 11:00 AM EDT Laboratory Laboratory [address] [place] [phone] [facility] [address] [facility] [place] [id number] 07/21/2024 11:30 AM EDT Office Visit Hematology/Oncology [facility] [address] [place] [phone] Jada Jarquin, KONSTANTIN [address] [place], [place] [address] [address] 07/21/2024 12:00 PM EDT Hem/Onc Treatment Hematology/Oncology Treatment, [place] [address] [facility] [place] [phone] Nataliia, Chair 6 Hem Onc [address] [place] [address] 10/01/2024 10:35 AM EST Cardiac Studies Cardiac Studies, [facility] [address] [facility] [place] [address] Scheduled Procedures Name Priority Associated Diagnoses Date/Ti [...] 01/07/2023, Additional history exists TSH 03/24/2025 03/24/2024, /0 02/2023, 05/29/2022, Additional history exists Pap Smear [...] this encounter Medical Devices Implanted Type Area Drawing Machine Operator Device Identifier Shelf Expiration Date Model / Serial / Lot Port Implant [id number] Poly Cath - [id number] Implanted:Qty : 1 on 03/31/2024 by Kesha Orlando MD at OR [facility] Right: Subclavian CR BARD : PERIPHERAL VASCULAR 02/26/2025 [id number] / / [id number] documented as of this encounter Visit Diagnoses Diagnosis Encounter for antineoplastic chemotherapy- Primary Malignant neoplasm of upper-outer quadrant of left breast in female, estrogen receptor positive (HCC) 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) documented in this encounter Administered Medications Inactive Administered Medications - up to 3 most recent administrations Medication Order MAR Action Action Date Dose Rate Site Pegfilgrastim-cbqv (Udenyca) inj 6 mg 6 mg, Subcutaneous, ONCE, On Heena 07/01/24 at 1600, For 1 dose Given 07/01/2024 3:20 PM EDT 6 mg Arm R ight Upper documented in this encounter Advance Directives * Full Code (Latest Code Status on File) Date Activated Date Inactivated Comments 03/31/2024 12:17 PM 03/31/2024 7:50 PM This order re flects the patients wishes and were consensually agreed upon. Question Answer Comments Discussion of Advance Directives occurred with: Patient Care Teams Sueding Machine Tender Relationship Specialty Start Date End Date Nannette Rock DO [address] [place] [address] PCP - General Family Medicine 11/09/19 documented as of this encounter
--- OUTSIDE RECORDS SUMMARY | 2024-07-03 14:52 | External Medical Summary | Summary of Care ---
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) Metastasis to bone (HCC) Encounter for long-term (current) drug use Procedures ECHO, COMPLETE (2D), TRANS-THORACIC Johnnie Arndt MD [address] [place] [address] Referral ID Status Reason Start Date Expiration Date Visits Requested Visits Authorized [id number] Pending Review Precert 09/30/[phone] Reason for Visit * Reason Comments Follow Up Encounter Details Date Type Department Care Team (Late st Contact Info) Description 06/30/2024 8:15 AM EDT Office Visit Hematology/Oncology [facility] [address] [place] [phone] Johnnie Arndt MD [address] [place] [id number] 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)*; Metastasis to brain (HCC); Metastasis to bone (HCC); Encounter for long-term (current) drug use Allergies Active Allergy Reactions Criticality Noted Date Comments Amoxicillin 10/23/2001 hives Dust 01/28/2023 Other Allergy (See Comments) Rash Low 01/25/2020 Adhesive Sensitive Oxycodone-Acetaminophe n Other (Please comment) 04/22/2011 Chest pain and shortness of breath documented as of this encounter (statuses as of 06/30/2024) Medications Medication Sig Dispensed Refills Start Date [...] as of this encounter (statuses as of 06/30/2024) Active Problems Problem Noted Date Diagnosed Date [...] as of this encounter (statuses as of 06/30/2024) Resolved Problems Problem Noted Date Diagnosed Date Resolved Date Varicella without complication 11/17/2018 11/17/2018 Allergic conjunctivitis, bilateral 11/17/2018 11/17/2018 Encounter for supervision of other normal 09/10/2006 11/17/2018 Overview: ICD-10 update of inactive term Hypothyroidism 10/29/2004 11/07/2017 Normal , first 04/07/200302/2007 Female infertility 07/07/2002 9 documented as of this encounter (statuses as of 06/30/2024) Immunizations Name Administration Dates Next Due COVID-19 [...] on file documented as of this encounter Last Filed Vital Signs Vital Sign Reading Time Taken Comments Blood Pressure 128/88 06/30/2024 8:07 AM EDT Pulse 97 06/30/2024 8:07 AM EDT Temperature 36.3 C (97.4 F) 06/30/2024 8:07 AM ED T Respiratory Rate - - Oxygen Saturation 95% 06/30/2024 8:07 AM EDT Inhaled Oxygen Concentration - - Weight 92.8 kg (204 lb 9.6 oz) 06/30/2024 8:07 A M EDT Height - - Body Mass Index 32.04 03/31/2024 12:27 PM EDT documented in this encounter Progress Notes * Johnnie Arndt MD - 06/30/2024 8:15 AM EDT Hematology/Oncology Outpatient Clinic note [facility] Ebony [address] [place] [address] Name: Tiffanie Leon Date: 05/19/2024 CHIEF COMPLAINT: Tiffanie Leon is a 49 year old female patient here today for f/u visit HEMATOLOGY/ONCOLOGY DIAGNOSIS: 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 -Her2/Ashu could not be assessed on micro invasion. Genetic Clinic evaluation --> negative for 9 known mutations. While on tamoxifen of 4 yrs , noticed to have recurrent disease involving the left axilla, multiplebones, hormonal positive, HER2 Ashu positive. (February 2024) Brain metastasis, left parietal lobe (04/08/2024). Completed SBRT to brain lesions on 06/07/2024 at [facility]. DATE OF DIAGNOSIS: 01/03/20 TREATMENT HISTORY: She underwent lumpectomy and sentinel for biopsy by Dr. Orlando on 02/09/2020 Adjuvant radiation therapy completed 04/17/20 - tamoxifen since mid-March 2020 - , Tamoxifen discontinued of disease progression to the leftaxilla and multiple bones. CURRENT TREATMENT: - Taxotere, Trastuzumab pertuzumab chemotherapy. (04/05/2024) She is at high-risk for febrile neutropenia, she will receive prophylactic Pegfilgrastim. Planning start Xgeva after dental evaluation. (Waiting to have some teeth extracted) DIAGNOSTIC WORKUP: She had a screening bilateral breast mammogram earlier in November 2019, left breast the showed some abnormal calcification at 12:00 p.m. position. She had a additional diagnostic left breast mammogram and sonogram which showed 2 groups of abnormal calcification left breast. Biopsy from the left breast calcification (01/03/2020) -micro invasive ductal carcinoma, measuring 0.9 mm, -extensive high-grade DCIS, -biopsy from the left breast without calcification lesion --> high-grade DCIS. -ER and CA receptor strongly positive in 100 malignamt cells. -Her2/Ashu could not be done as microinvasive component disappeared at deeper level. She underwent lumpectomy and sentinel for biopsy by Dr. Orlando on 02/09/2020: -high-grade DCIS measuring about 1.3 cm, -1 lymph node negative for metastatic disease. Bilateral breast diagnostic mammogram on 01/14/2024 --> unremarkable. She was noticed to have some enlarged lymph nodes in the left axilla, further workup as follows: Ultrasound of the left axilla showed 2 hypoechoic mass measuring 1.4 cm and 9 mm. There were approximately 8 mm apart. Biopsy from the left axilla lymph node (03/11/2024)--> Metastatic/recurrent invasive ductal carcinoma grade 3, no definite lymph prince parenchyma identified -HER2 Ashu positive by FISH -ER moderately positive in 50% malignamt cells, CA moderately positive 50 % malignamt cells. Bilateral breast MRI done on 03/2024: Unremarkable breast findings, sternal lesion noted. -several enhancing lymph nodes noted in the axilla, largest one measuring about 2.5 cm. PET-CT scan done on 03/30/2024: -level V a-1.4 x 2 cm lymph node with SUV of 14.1 -level 2 retropectoral lymph node measuring 9 mm, -left axilla lymph node measuring 1.3 x 2 cm with SUV of 9.1 -no lung nodules, no hilar or mediastinal lymphadenopathy -no suspicious noted in the abdomen pelvis -multiple foci noted in the bones -L3 vertebral body, bilateral femoral necks, right posterior 10th rib. OTHER IMPORTANT HISTORY: -Hypothyroidism -GERD, she is on Prevacid. 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 HISTORY OF PRESENT ILLNESS: She has come the clinic for the follow-up, accompanied by her friend in the office. Currently she receiving Taxotere, trastuzumab and pertuzumab chemotherapy, so far received 4 cycles, today she is here for cycle # 5. She did receive prophylactic Pegfilgrastim. Following last chemotherapy, she had increasing symptoms of GERD responded well with the omeprazoletreatment, she had a frequent nausea and vomiting which has improved, ulcerative diarrhea which hasimproved, had hypokalemia, she is on oral potassium supplementation, she also required IV hydrationfollowing last chemotherapy. No fever, has some mild tingling and numbness of extremities but stable, no leg edema. No new cardiac or pulmonary symptoms. Weight is stable around 204 lb. Ambulates well by herself ECOG PS 1. No increasing headache, no focal neurological symptoms. Past Medical History: Diagnosis Date Breast cancer (HCC) 2019 Left DCIS Hemangioma of skin SEVERE, FACIAL Hypothyroidism Hypothyroidism Varicella without complication Past Surgical History: Procedure Laterality Date BX LYMPH NODE DEEP AXIL Left 02/09/2020 BIOPSY LYMPH NODE DEEP AXILLARY OPEN performed by Kesha Orlando MD at OR [facility] COLONOSCOPY, DIAGNOSTIC (RECTUM) 08/07/2022 diverticulosis, repeat 10 yrs / COLONOSCOPY FLEXIBLE PROXIMAL DIAGNOSTIC performed by Mikhail Ray MD at ENDOSCOPY [facility] EGD, FLEXIBLE, DIAGNOSTIC 08/03/2016 severe esophagitis, HH, food impaction/[facility] EGD, W/ENDOSCOPIC US 05/30/2011 IDENTIFY SENTINEL NODE, RADIOACTIVE TRACER Left 02/09/2020 INJECTION PROCEDURE FOR IDENTIFICATION SENTINEL NODE performed by Kesha Orlando MD at OR [facility] INFORMATION EYE - L "lazy eye" INFORMATION EAR - R 'Pocke ot air" INFORMATION FACIAL HEMANGIOMAS INSER TUNN ACC DEV;5 YRS/OLDER Right 03/31/2024 INSERT TUNNELED CENTRAL VENOUS ACCESS WITH SUBQ PORT performed by Kesha Orlando MD at OR [facility] LAPAROSCOPY; CHOLECYSTECTOMY 07/30/2007 at [facility] - Dr. Phillips MAMMOGRAM BREAST NEEDLE BIOPSY CORE LEFT Left 01/03/2020 Site 1:high grade DCIS site 2:Atypical lobular hyperplasia MASTECTOMY, PARTIAL Left 02/09/2020 MASTECTOMY PARTIAL performed by Kesha Orlando MD at OR [facility] OTHER 04/22/2022 Ortho: left plantar release and spur removal, etc CA LITHOTRIPSY XTRCORP SHOCK WAVE 2023 RADIATION THERAPY Left 03/2020 5130 cGy REMOVAL OF KIDNEY CYST 2023 VAGINAL DELIVERY ONLY times 2 Social History Socioeconomic History Marital status: Spouse name: Not on file Number of children: Not on file Years of education: Not on file Highest education level: Not on file Occupational History 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: [employer] Tobacco Use Smoking status: Never Smokeless tobacco: Never Tobacco comments: no passive smoke Vaping Use Vaping status: Never Used Substance and Sexual Activity Alcohol use: Yes Comment: rare Drug use: No Sexual activity: Yes Partners: Male control/protection: Surgical Comment: menses regular - tubal Other Topics Concern Service No Blood Transfusions No Caffeine Concern No Comment: 1 daily 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 (Adult - for ages 18 years and over): No Does your family have trouble paying for medicine? (Household - for ages 0-17 years): Not on file Food Insecurity: No Food Insecurity (01/14/2024) Food Insecurity Do you need food for this week? (Adult - for ages 18 years and over): No Are you able to get enough food for your family? (Household - for ages 0-17 years): Not on file Does your family need food this week? (Household - for ages 0-17 years): Not on file Do you always have enough food for your family? (Household - for ages 0-17 years): Not on file Transportation Needs: No Transportation Needs (01/14/2024) Transportation Needs Do you have trouble getting a ride to medical visits or work? (Adult - for ages 18 years and over):Never True Does your family have a hard time getting a ride to doctors visits? (Household - for ages 0-17 years): Not on file Has lack of transportation kept you from medical appointments, meetings, work, or from getting things needed for daily living? Check all that apply. (Adult - for ages 18 years and over): Not on file Do you (or your family) have trouble finding or paying for a ride (transportation)? (Household - for ages 0-17 years): Not on file Social Connections: Socially Integrated (01/14/2024) Social Connections How often do you feel lonely or isolated from those around you? (Adult - for ages 18 years and over): Never Housing Stability: Low Risk (01/14/2024) Housing Stability Do you currently live in a mcfp or have no steady place to sleep at night? (Adult - for ages 18 years and over): No Do you think you are at risk of becoming homeless? (Adult - for ages 18 years and over): No Does your family worry about paying for your home or becoming homeless? (Household - for ages 0-17 years): Not on file Are you homeless or worried that you might be in the future? (Adult - for ages 18 years and over): Not on file Are you (or your family) homeless or worried that you might be in the future? (Household - for ages0-17 years): Not on file Review of patient's allergies indicates: Allergen Reactions Amoxicillin hives Mites [Dust] Percocet [Oxycodone-Acetaminophen] Other (Please comment) Chest pain and shortness of breath Other Allergy (See Comments) Rash Adhesive Sensitive Current Outpatient Medications Medication Sig Dispense Refill Multivitamin Women 50+ Oral Tablet Take by mouth. (Patient not taking: Reported on 04/28/2024) Ciprofloxacin HCl 500 MG Oral Tablet (Cipro) Take 1 Tablet by mouth in the morning and 1 Tablet before bedtime. (Patient not taking: Reported on 03/24/2024) Tamoxifen Citrate 20 MG Oral Tablet Take 1 Tablet by mouth in the morning. (Patient not taking: Reported on 03/24/2024) 90 Tablet 3 Phenazopyridine HCl 200 MG Oral Tablet (Pyridium) 1 Tablet. (Patient not taking: Reported on 03/24/2024) Ondansetron HCl 8 MG Oral Tablet (Zofran) Take 1 Tablet by mouth every 8 hours as needed for Nausea. 30 Tablet 2 Prochlorperazine Maleate 10 MG Oral Tablet (Compazine) Take 1 Tablet by mouth every 6 hours as needed for Nausea. 30 Tablet 3 dexAMETHasone 4 MG Oral Tablet (Decadron) Take 2 tablets (8mg) twice daily for 3 days starting the day prior to treatment. 60 Tablet 1 Lidocaine-Prilocaine 2.5-2.5 % External Cream (Emla) APPLY TO SKIN OVER MEDIPORT & COVER 1HR PRIOR TO ACCESSING. 30 g 2 Diphenoxylate-Atropine 2.5-0.025 MG Oral Tablet (Lomotil) Take 1 Tablet by mouth 4 times a day as needed for Diarrhea. 30 Tablet 0 Levothyroxine Sodium 112 MCG Oral Tablet (Levoxyl) TAKE 1 TABLET BY MOUTH IN THE MORNING AT LEAST 30 MINUTES PRIOR TO BREAKFAST OR OTHER MEDS 30 Tablet 11 Omeprazole 20 MG Oral Capsule Delayed Release (PriLOSEC) Take 1 Capsule by mouth in the morning. Take one pill by mouth first this in the morning. 90 Capsule 2 Famotidine 20 MG Oral Tablet (Pepcid) Take 1 Tablet by mouth in the morning and 1 Tablet before bedtime. 60 Tablet 11 Benzonatate 100 MG Oral Capsule Take 1 Capsule by mouth 3 times a day as needed for Cough. 90 Capsule 2 oxyCODONE HCl 5 MG Oral Tablet (Oxy IR) Take 1 Tablet by mouth every 4 hours as needed for Pain, Moderate. 30 Tablet 0 Potassium Chloride ER 10 MEQ Oral Tablet Extended Release Take 1 Tablet by mouth in the morning and1 Tablet before bedtime. 60 Tablet 1 Omeprazole 20 MG Oral Capsule Delayed Release (PriLOSEC) Take 1 Capsule by mouth in the morning. 1 hour before the first meal of the day. 30 Capsule 5 No current facility-administered medications for this visit. REVIEW OF SYSTEMS: See HPI - otherwise negative OBJECTIVE: There were no vitals taken for this visit. PHYSICAL EXAM: ECOG: Performance Status 0 = 100% Normal Activity General Appearance: Normal - Healthy appearing patient in no acute distress HEENT: Normal - No oral or pharyngeal masses, ulceration or thrush noted, no sinus tenderness Lymph Nodes: Normal - No palpable lymph nodes in the neck or supraclavicular areas Lungs/Thorax: Normal - Clear to auscultation Heart: Normal - Regular rate and rhythm, normal S1, S2, no appreciable murmurs, rubs, gallops Pulses/Extremities: Normal - 2+ throughout and symmetrical, no edema Abdomen: Normal - Soft, nontender, bowel sounds present, no appreciable hepatosplenomegaly, no palpable masses Musculoskeletal: Normal - No pain on palpation over bony prominence, no joint or bony deformity Neurologic: Normal - Grossly intact LABS: Blood workup done on 06/30/2024: -WBC 02369, Hemoglobin and hematocrit -13.3/40, Platelet count of 051436. -BUN/Creat: 7/0.8, AST 30, ALT 40, alkaline phosphatase 83, bilirubin level 1.4. -Calcium 10.0 Brain MRI done on 04/08/2024: - Well circumcised size enhancing mass within the left parietal lobe measuring 1.5 x 1 cm with mildsurrounding edema without significant mass effect. - Area of vague non-mass enhancement within the left Sidney inferior frontal lobe and left posterior temporal lobe which is favored as a benign microstructure but follow-up imaging study is advised. PET-CT scan done on 06/22/2024 ( after 4 cycles of Taxotere, Trastuzumab pertuzumab) Favorable response to therapy: 1. Left breast and axillary post treatment changes. No metabolically active lymphadenopathy. 2. Multifocal hypermetabolic activity in the axial and appendicular skeleton has decreased from prior. 3. No new metastases. ( I reviewed with her and her friend regarding the PET-CT scan images) Echocardiogram on 06/21/2024: -LV ejection fraction--> 59%. - Compared to the prior study dated 04/02/24, the GLS value was -16.8% at that time and has thereforedeclined by 15.5% - I would like to repeat echocardiogram in about 2 months' time. 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 -Brain metastasis. Now she has recurrent disease involving left axilla, multiple bones, reviewed with her regarding the PET-CT scan findings, breast MRI findings, pathological findings from the left axilla lymph node, she has hormonal positive, HER2 Asuh positive breast cancer. Regarding left parietal lobe lesion, she completed radiation therapy to that area at [facility]. They are planning to repeat brain MRI in about 3 months' time. I reviewed with regarding the PET-CT scan after 4 cycles of Taxotere, trastuzumab and pertuzumab chemotherapy, overall favorable response, Reviewed the blood workup done today, overall stable blood workup noted Will proceed with 5th cycle of chemotherapy with Taxotere, Trastuzumab pertuzumab as we planned. Still waiting for the dental clearance before we proceed for the Xgeva treatment. Echocardiogram done on 06/21/2024 showed ejection fraction 59% but when compared with the previous study, GLS value decreased by about 15% and recommended to have follow-up echocardiogram about 2 months. She will continue induced Lomotil and Imodium for the symptomatic treatment of diarrhea She will continue oral potassium supplementation. Will see her before the next cycle. I am planning for additional 2-4 cycle based on how she tolerates. And then switch over to oral hormonal treatment with Anastrozole and continue with pertuzumab and Trastuzumab Dr. Johnnie Arndt Hem/Onc (This note was completed using the dictation program Fluency Direct. As such, there may be misspellings word substitutions, or other variations that should not change the essence of the clinical content of this encounter note. If there is need for further clarification, please direct questions to the provider listed above.) documented in this encounter Nursing Notes * Jackie Burroughs MED ASSIST - 06/30/2024 8:09 AM EDT Patient identifed by name and birthdate Do you have any concerns about pain management for today's visit? Yes. Patient instructed to discuss pain concerns with provider during the visit today Living Will or Advance Directive for Health Care as noted on the problem list. [facility] is a way you can talk to your provider on line through e-mail. Would you like to sign up? I can activate it for you? ALREADY ACTIVE Patient was instructed to not get up on the exam table/exam chair until directed and assisted by their provider; patient is to remain seated in the chair/ wheelchair/ exam table/ exam chair for fall prevention and safety reasons. Patient is aware to have assistance to step down off exam table/exam chair with personnel. Patient voiced full comprehension of instructions. Filed Vitals: 06/30/24 0807 BP: 128/88 Pulse: 97 Temp: 36.3 C (97.4 F) TempSrc: Tympanic SpO2: 95% Weight: 92.8 kg (204 lb 9.6 oz) documented in this encounter Plan of Treatment Upcoming Encounters Date Type Department Care Team (Late st Contact Info) Description 07/01/2024 3:00 PM EDT Immunization/Injecti on Hematology/Oncology Treatment, [place] [address] [place] [address] [place], Chair 11 Hem Onc [place] [address] [facility] [place] [id number] 07/21/2024 11:00 AM EDT Laboratory Laboratory [facility] [address] [place], [place] [phone] Nataliia, Lab [place] [address] [place], [place] [address] 07/21/2024 11:30 AM EDT Office Visit Hematology/Oncology [facility] [address] [place] [phone] Jada Jarquin CRNP [address] 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) Metastasis to brain (HCC) Metastasis to bone (HCC) Encounter for long-term (current) drug use Expected: 09/30/2024 (Approximate), Expires: 07/31/2026 Scheduled Procedures Name Priority Associated Diagnoses Date/Ti [...] this encounter Medical Devices Implanted Type Area Seafood Technology Specialist Device Identifier Shelf Expiration Date Model / Serial / Lot Port Implant [id number] Poly Cath - [id number] Implanted:Qty : 1 on 03/31/2024 by Kesha Orlando MD at OR [facility] Right: Subclavian CR BARD : PERIPHERAL VASCULAR 02/26/2025 [id number] / / [id number] documented as of this encounter Visit Diagnoses Diagnosis 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 Question Answer Comments Discussion of Advance Directives occurred with: Patient Care Teams Load Checker Relationship Specialty Start Date End Date Nannette Rock DO [address] [place] [address] PCP - General Family Medicine 11/09/19 documented as of this encounter
--- OUTSIDE RECORDS SUMMARY | 2024-07-03 14:52 | External Medical Summary ---
Author Name Unknown Address Unknown Organization K09[facility] [place] [address] Laboratory Report Ordering Provider Test Date Status SANDEE POND 06/30/2024 07:58:54 Final Observation Date Value Abnormality Reference (Units ) Status Screen, Urine 06/30/2024 07:58:54 Negative Negative Final Performing Location [facility] [address] [place] [address]
--- OUTSIDE RECORDS SUMMARY | 2024-07-03 14:52 | External Medical Summary | Summary of Care ---
Author Name Unknown Organization [facility] Address [address] [place] [address] Phone [phone] Care Team Providers Care Associate Music Professor Name Role Phone Nannette Rock DO Primary Care Provider Reason for Visit * Reason Comments Outpatient Testing Encounter Details Date Type Department Care Team (Late st Contact Info) Description 06/30/2024 7:40 AM EDT Laboratory Laboratory [facility] [place] [address] [place] [address] [place], Lab [address]en[address] [place] [address] Malignant neoplasm of upper-outer quadrant of left breast in female, estrogen receptor positive (HCC) Allergies Active Allergy Reactions Criticality Noted [...] No 01/14/2024 Does the household have a [facility] source of income? (Household - for ages [...] Johnnie Arndt MD [address] [place] [address] 06/30/2024 8:45 AM EDT Hem/Onc Treatment Hematology/Oncology Treatment, [facility] [address] [place] [address] Nataliia, Chair 7 Hem Onc [address]en[address] [place] [address] Arrived Pending Results Name Type Priority Associated Diagnoses Date /Time COMPREHENSIVE METABOLIC PANEL Lab STAT Malignant neoplasm of upper-outer quadrant of left breast in female, estrogen receptor positive (HCC) 06/30/2024 7:58 AM EDT Scheduled Procedures Name Priority Associated Diagnoses Date/Ti [...] this encounter Medical Devices Implanted Type Area Warehouse Specialist Device Identifier Shelf Expiration Date Model / Serial / Lot Port Implant W8f Poly Cath - [id number] Implanted:Qty : 1 on 03/31/2024 by Kesha Orlando MD at OR [facility] Right: Subclavian CR BARD : PERIPHERAL VASCULAR 02/26/2025 [id number] / / [id number] documented as of this encounter Procedures Procedure Name Priority Date/Time Associated Diagnosis Comments DIFFERENTIAL, AUTOMATED STAT 06/30/2024 7:58 AM EDT Malignant neoplasm of upper-outer quadrant of left breast in female, estrogen receptor positive (HCC) CBC STAT 06/30/2024 7:58 AM EDT Malignant neoplasm of upper-outer quadrant of left breast in female, estrogen receptor positive (HCC) CBC STAT 06/30/2024 7:58 AM EDT Malignant neoplasm of upper-outer quadrant of left breast in female, estrogen receptor positive (HCC) HCG QUALITATIVE, URINE STAT 06/30/2024 7:58 AM EDT Malignant neoplasm of upper-outer quadrant of left breast in female, estrogen receptor positive (HCC) documented in this encounter Results * (ABNORMAL) DIFFERENTIAL, AUTOMATED (06/30/2024 7:58 AM EDT) WBC 12.95(H) 4.00 - 10.80 K/uL 06/30/2024 8:03 AM EDT LABORATORY [facility] 56-02 Neutrophils % 82.4(H) 40.0 - 75.0 % 06/30/2024 8:03 AM EDT LABORATORY [facility] 56-02 Lymphocytes % 11.8(L) 18.0 - 42.0 % 06/30/2024 8:03 AM EDT [facility] 56- Monocytes % 5.5 1.0 - 11.0 % 06/30/2024 8:03 AM EDT [facility] 56- Eosinophils % 0.0 0.0 - 6.0 % 06/30/2024 8:03 AM EDT [facility] 56 Basophils % 0.3 0.0 - 2.0 % 06/30/2024 8:03 AM EDT [facility] 56- Absolute Neutrophils 10.67(H) 1.80 - 7.70 K/uL 06/30/2024 8:03 AM EDT [facility] 56 Absolute Lymphocytes 1.53 1.00 - 4.80 K/ul 06/30/2024 8:03 AM EDT [facility] 56 Absolute Monocytes 0.71 0.00 - 1.10 K/uL 06/30/2024 8:03 AM EDT [facility] 56 Absolute Eosinophils 0.00 0.00 - 0.70 K/uL 06/30/2024 8:03 AM EDT [facility] 56- Absolute Basophils 0.04 0.00 - 0.20 K/uL 06/30/2024 8:03 AM EDT [facility] 56 Blood Venous blood specimen / Unknown Venipuncture / Unknown 06/30/2024 7:58 AM EDT 06/30/2024 7:58 AM EDT Johnnie Arndt MD LAB BLOOD ORDERABLES [facility] [address] [place] [address] * (ABNORMAL) CBC (06/30/2024 7:58 AM EDT) WBC 12.95(H) 4.00 - 10.80 K/uL 06/30/2024 8:03 AM EDT [facility] 56 RBC 4.21 3.85 - 5.15 M/uL 06/30/2024 8:03 AM EDT [facility] 56 HGB 13.3 12.0 - 15.3 g/dL 06/30/2024 8:03 AM EDT [facility] 56 HCT 40.2 36.0 - 45.2 % 06/30/2024 8:03 AM EDT [facility] 56 MCV 95.5 81.5 - 97.5 fL 06/30/2024 8:03 AM EDT [facility] 56 MCH 31.6 27.0 - 34.0 pg 06/30/2024 8:03 AM EDT [facility] 56 MCHC 33.1 32.0 - 36.0 g/dL 06/30/2024 8:03 AM EDT [facility] 56 RDW 15.6 11.5 - 15.5 % 06/30/2024 8:03 AM EDT [facility] 56 PLT 328 140 - 400 K/uL 06/30/2024 8:03 AM EDT [facility] 56 MPV 9.6 6.6 - 11.1 fL 06/30/2024 8:03 AM EDT [facility] 56 Blood Venous blood specimen / Unknown Venipuncture / Unknown 06/30/2024 7:58 AM EDT 06/30/2024 7:58 AM EDT Johnnie Arndt MD LAB BLOOD ORDERABLES [facility] [address] [place] [address] * HCG QUALITATIVE, URINE (06/30/2024 7:58 AM EDT) HCG Qualitative, Urine Negative Negative 06/30/2024 8:11 AM EDT [facility] 56 Urine Urine specimen obtained by clean catch procedure / Unknown Non-blood Collection / Unknown 06/30/2024 7:58 AM EDT 06/30/2024 7:58 AM EDT Johnnie Arndt MD LAB URINE ORDERABLES [facility] 56 [address] [place] [address] documented in this encounter Visit Diagnoses Diagnosis Malignant neoplasm of upper-outer quadrant of left breast in female, estrogen receptor positive (HCC) documented in this encounter Advance Directives * Full Code (Latest Code Status on File) Date Activated Date Inactivated Comments 03/31/2024 12:17 PM 03/31/2024 7:50 PM This order re flects the patients wishes and were consensually agreed upon. Question Answer Comments Discussion of Advance Directives occurred with: Patient Care Teams Associate Music Professor Relationship Specialty Start Date End Date Nannette Rock DO [address] [place] [address] PCP - General Family Medicine 11/09/19 documented as of this encounter
--- OUTSIDE RECORDS SUMMARY | 2024-07-03 14:52 | External Medical Summary | Summary of Care ---
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) Procedures ME INJECTION, PERTUZUMAB, 1 MG ME INJ ONTRUZANT 10 MG ME INJECTION, UDENYCA 0.5 MG ME DOCETAXEL INJECTION Johnnie Arndt MD [address] [place] [address] Anc Hem/Onc [address] [address] Referral ID Status Reason Start Date Expiration Date V isits Requested Visits Authorized [id number] Authorized 03/31/2024 09/28/2099 999 99 Encounter Details Date Type Department Care Team (Latest Contact Info) Description 06/30/2024 8:45 AM EDT Hem/Onc Treatment Hematology/Oncolog y Treatment, [address] [address] Nataliia, Chair 7 Hem Onc [address] [place] [address] Encounter for antineoplastic chemotherapy*; Malignant neoplasm of [...] term Hypothyroidism 10/29/2004 11/07/2017 Normal , first 04/07/2003/0 02/2007 Female infertility 07/07/2002 9 documented as [...] as of this encounter Nursing Notes * Robina Richey RN - 06/30/2024 3:29 PM EDT Pt completed treatment without issues. VAD flushed with 10 ml NSS and Heparin 5 ml (100 units/ml). López needle removed intact. Goals: Pt will remain free from injury. Possible barriers to meeting goals: ambulation with IV pole Stability of the patient: Moderately stable - low risk of patient condition declining or worsening Summary regarding today's goals: Met Pt remained free from injury during treatment today. Discharged in stable condition. * Robina Richey RN - 06/30/2024 9:06 AM EDT Chair 3 Chemotherapy/Immunotherapy agents: TAXOTERE, ONTRUZANT and PERJETA Consent for chemotherapy drug treatment complete, dated, and signed? yes, date - 03/31/24 Treatment lab parameters met? Yes Bili 1.4 reviewed with janet Zimmerman for treatment Has treatment weight changed > than 10%? No Treatment preauthorized? Yes VITALS Filed Vitals: Urine protein: N/A Patient education completed for treatment? Yes Blood transfusion consent signed and complete? NA Return appointment scheduled? Yes Patient had provider visit today? Yes - Ok to release order and treat per provider VAD accessed; NSS infusing. Safety and Risk for Injury Patient will remain free from injury. Ensure appropriate safety devices are available. Provide and maintain safe environment. Functional Status: Functional status at today's visit: Restricted in physically strenuous activity but ambulatory and able to carry out work on a light orsedentary nature, e.g. light house work, office work The drug name, dose, infusion volume, rate and route of administration, expiration date and time, appearance and physical integrity of the drug and rate set on the pump and sequencing of drug administration (as applicable) were verified by me and second sign-in RN. Patient was assessed for symptoms or adverse side effects during treatment. Patient Education: Patient instructed on use of heat and massage functions where applicable. Patient shown how to operate the heat function of the chair and to alert nursing staff if the chair feels too warm. Patient instructed on the risk of potential gutiérrez while using the heat function. documented in this encounter Plan of Treatment Upcoming Encounters Date Type Department Care Team (Late st Contact Info) Description 07/01/2024 3:00 PM EDT Immunization/Injecti on Hematology/[address] [phone] Nataliia, Chair 11 Hem Onc [address] [place] [address] 07/21/2024 11:00 AM EDT Laboratory Laboratory [facility] [address] [place] [phone] Natali[place], Lab [address] [facility] [place] [address] 07/21/2024 11:30 AM EDT Office Visit Hematology/Oncology [address] [place] [phone] Jada Jarquin, KONSTANTIN [address] [facility] [place] [id number] 07/21/2024 12:00 PM EDT Hem/Onc Treatment Hematology/[address], [address] [phone] Nataliia, Chair 6 Hem Onc [address] [place] [address] Scheduled Procedures Name Priority Associated Diagnoses Date/Ti [...] this encounter Medical Devices Implanted Type Area Counter Control Operator Device Identifier Shelf Expiration Date Model / Serial / Lot Port Implant W8f Poly Cath - [id number] Implanted:Qty : 1 on 03/31/2024 by Kesha Orlando MD at OR [facility] Right: Subclavian CR BARD : PERIPHERAL VASCULAR 02/26/2025 [id number] / / [id number] documented as of this encounter Visit Diagnoses Diagnosis Encounter for antineoplastic chemotherapy- Primary Malignant neoplasm of upper-outer quadrant of left breast in female, estrogen receptor positive (HCC) 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) documented in this encounter Administered Medications Active Administered Medications - up to 3 most recent administrations Medication Order MAR Action Action Date Dose Rate Site diphenhydrAMINE (Benadryl) inj 50 mg 50 mg, IV Push, ONCE PRN Other, Hypersensitivity Reaction, Starting on Fri06/30/24 at 0902, Until Heena 07/01/24 at 0901, For 24 hours EPINEPHrine 1 MG/ML inj 0.3 mg 0.3 mg, Intramuscular, ONCE PRN Other, Hypersensitivity Reaction or Anaphylaxis, Starting on Fri06/30/24 at 0902, Until Heena 07/01/24 at 0901, For 24 hours hEParin 100 UNIT/ML Lock Flush inj 500 Units 500 Units (5 mL), IV Lock, PRN Other, IV Flush, Starting on Fri06/30/24 at 0902, Until Heena 07/01/24 at 0901, For 24 hours, Do not flush if lock, PICC, or central line not in place; IV infusing or unable to flush. Given 06/30/2024 12:21 PM EDT 500 Units Hydrocortisone Sod Suc (PF) (Solu-Cortef) inj 100 mg 100 mg, IV Push, ONCE PRN Other, Hypersensitivity Reaction, Starting on Fri06/30/24 at 0902, Until Heena 07/01/24 at 0901, For 24 hours LORAzepam (Ativan) tab 0.5 mg 0.5 mg, Oral, ONCE PRN Anxiety, Nausea, Starting on Fri06/30/24 at 1015, Until Discontinued NSS infusion Intravenous, at 50 mL/hr, PRN, Starting on Fri06/30/24 at 1015, Until Discontinued, Maintenance line Start Infusion 06/30/2024 9:04 AM EDT 50 mL/hr oxygen GAS Inhalation, OXYGEN, First dose on Fri06/30/24 at 0945, Until Discontinued, Device/Managed by: Low Flow Device, Goal SPO2 (%): 91-95, Starting Device: Nasal Cannula, Initial Flow Rate (LPM): 2, Lowest Support: Nasal Cannula: Flow 0-6 LPM. Titrate up/down by 1 LPM., Higher Support: Non-Rebreather (NRB) Mask: Minimum of 10 LPM. Titrate to maintain bag inflation., Titration Interval: Q2 minutes and as needed., Notify Provider: For sudden DECREASE in resting SPO2 to less than 85% and when escalating delivery device., Wean patient off Oxygen when the oxygen saturation is greater than or equal to 93% sodium chloride 0.9 % flush central line 10 mL 10 mL, IV Push, PRN Other, IV Flush, Starting on Fri06/30/24 at 0902, Until Heena 07/01/24 at 0901, For 24 hours, Do not flush if lock, PICC, or central line not in place; IV infusing or unable to flush. Given 06/30/2024 12:21 PM EDT 10 mL Inactive Administered Medications - up to 3 most recent administrations Medication Order MAR Action Action Date Dose Rate Site Acetaminophen (Tylenol) tab 650 mg 650 mg, Oral, ONCE, On Fri06/30/24 at 1015, For 1 dose, Maximum of 4 grams (4000 mg) per day. Given 06/30/2024 9:13 AM EDT 650 mg dexAMETHasone (Decadron) tab 8 mg 8 mg, Oral, ONCE, On Fri06/30/24 at 0945, For 1 dose Given 06/30/2024 9:13 AM EDT 8 mg diphenhydrAMINE (Benadryl) cap 50 mg 50 mg, Oral, ONCE, On Fri06/30/24 at 1015, For 1 dose Given 06/30/2024 9:14 AM EDT 50 mg DOCEtaxel (Taxotere) 160 mg in NSS 250 mL infusion 160 mg (rounded from 162.75 mg = 75 mg/m2 2.17 m2 Treatment Plan BSA from Recorded weight), IV Piggyback, at 263 mL/hr Administer over 60 Minutes, Give 30-60 minutes AFTER Pertuzumab is complete., ONCE, 1 dose, On Fri06/30/24 at 1345 Start Infusion 06/30/2024 11:14 AM EDT 160 mg 263 mL/hr ondansetron (Zofran) tab 8 mg 8 mg, Oral, ONCE, On Fri06/30/24 at 1015, For 1 dose, Give 30 minutes prior to chemotherapy. Given 06/30/2024 9:13 AM EDT 8 mg PERtuzumab (Perjeta) 420 mg in NSS 250 mL infusion 420 mg, IV Piggyback, ONCE, 1 dose, On Fri06/30/24 at 1045, Administer over 30 Minutes Start Infusion 06/30/2024 9:49 AM EDT 420 mg 538 mL/hr Trastuzumab-dttb (Ontruzant) 598.71 mg in NSS 250 mL infusion 598.71 mg (rounded from 598.8 mg = 6 mg/kg 99.8 kg Treatment plan Recorded weight), IV Piggyback, ONCE, 1 dose, On Fri06/30/24 at 1045, Administer over 30 Minutes Start Infusion 06/30/2024 10:30 AM EDT 598.71 mg 510 mL/hr documented in this encounter Advance Directives * Full Code (Latest Code Status on File) Date Activated Date Inactivated Comments 03/31/2024 12:17 PM 03/31/2024 7:50 PM This order re flects the patients wishes and were consensually agreed upon. Question Answer Comments Discussion of Advance Directives occurred with: Patient Care Teams Tower Excavator Operator Relationship Specialty Start Date End Date Nannette Rock DO [address] [place] [address] PCP - General Family Medicine 11/09/19 documented as of this encounter
--- OUTSIDE RECORDS SUMMARY | 2024-07-03 14:52 | External Medical Summary ---
Author Name Unknown Address Unknown Organization K09:[facility] [place] [address] Laboratory Report Ordering Provider Test Date Status SANDEE POND 06/30/2024 07:58:54 Final Observation Date Value Abnormality Reference (Units ) Status WBC, Total 06/30/2024 07:58:54 12.95 Above high normal 4 .00-10.80 (K/uL) Final RBC 06/30/2024 07:58:54 4.21 3.85-5.15 (M/uL) Final Hemoglobin 06/30/2024 07:58:54 13.3 12.0-15.3 (g/dL) Final HCT 06/30/2024 07:58:54 40.2 36.0-45.2 (%) Final MCV 06/30/2024 07:58:54 95.5 81.5-97.5 (fL) Final MCH 06/30/2024 07:58:54 31.6 27.0-34.0 (pg) Final MCHC 06/30/2024 07:58:54 33.1 32.0-36.0 (g/dL) Final RDW 06/30/2024 07:58:54 15.6 11.5-15.5 (%) Final Platelets 06/30/2024 07:58:54 328 140-400 (K /uL) Final MPV 06/30/2024 07:58:54 9.6 6.6-11.1 ( fL) Final Performing Location [facility] [place] [address]
--- OUTSIDE RECORDS SUMMARY | 2024-07-03 14:52 | External Medical Summary | Summary of Care ---
Author Name Unknown Organization [facility] Address [address] [place] [address] Phone [phone] Care Team Providers Care Inverted Block Operator Name Role Phone Medardo Rock DO Primary Care Provider Reason for Visit * Reason Onset Date Comments Advice 06/18/2024 Dr. Arndt Encounter Details Date Type Department Care Team (Late st Contact Info) Description 06/18/2024 Telephone Hematology/Oncology [facility] [place] [address] [facility] [address] [facility], Scheduling [address] [place] [address] Advice (Dr. Arndt ) Allergies Active Allergy [...] No 01/14/2024 Does the [facility]? (Household - for [...] encounter Miscellaneous Notes * Telephone Encounter - Francesca Myles OSA - 06/21/2024 8:42 AM EDT We received a call back from Tiffanie. She was returning Lili's recent call. Please give Tiffanie a call back at your earliest convenience. She can be reached at [phone]. Thank you! * Telephone Encounter - Lili [...] other than bilirubin level of 1.7 -WBC 61478, Hemoglobin and hematocrit -15.3/44.9, Platelet count of [id number] Hypokalemia noted Would like to give her [...] transfer to specialty Please contact pt at [phone]. Thank you. documented in this encounter Plan of Treatment Upcoming Encounters Date Type Department Care Team (Late st Contact Info) Description 06/22/2024 8:45 AM EDT Imaging Radiology [facility], [place] [address] [place] [address] 06/30/2024 7:40 AM EDT Laboratory Laboratory [facility] [place] [address] [place] [phone] Nataliia, Lab [facility] [address] [facility] [place] [address] 06/30/2024 8:15 AM EDT Office Visit Hematology/Oncology [facility] [place] [address] [place] [phone] Salty Arndt MD 200 [facility] [place] [address] 06/30/2024 8:45 AM EDT Hem/Onc Treatment Hematology/Oncology Treatment, [place] [address] [place] [phone] Nataliia, Chair 7 Hem Onc [facility] [address] [facility] [place] [address] Scheduled Procedures Name Priority Associated Diagnoses Date/Ti [...] 01/07/2023, Additional history exists TSH 03/24/2025 03/24/2024, 01/0 02/2023, 05/29/2022, Additional history exists Pap Smear [...] this encounter Medical Devices Implanted Type Area Chemical Operations And Training Device Identifier Shelf Expiration Date Model / Serial / Lot Port Implant W8f Poly Cath - [id number] Implanted:Qty : 1 on 03/31/2024 by Kesha Orlando MD at OR [facility] Right: Subclavian CR BARD : PERIPHERAL VASCULAR 02/26/2025 [id number] / / [id number] documented as of this encounter Visit Diagnoses [...] Advance Directives occurred with: Patient Care Teams Inverted Block Operator Relationship Specialty Start Date End Date Medardo Rock DO [address] [place] [address] PCP - General Family Medicine 11/09/19 documented as of this encounter
--- OUTSIDE RECORDS SUMMARY | 2024-07-03 14:52 | External Medical Summary ---
Author Name Unknown Address Unknown Organization K09:[facility] [place] [address] Laboratory Report Ordering Provider Test Date Status SANDEE POND 06/30/2024 07:58:54 Final Observation Date Value Abnormality Reference (Units ) Status SYNC LEUKOCYTES IN BLOOD BY AUTOMATED COUNT 06/30/2024 07:58:54 12.95 Above high normal 4.00-10.80 (K/uL) Final Segs 06/30/2024 07:58:54 82.4 Above high normal 40.0-75.0 (%) Final Lymphs % 06/30/2024 07:58:54 11.8 Below low normal 18.0-42.0 (%) Final Monos 06/30/2024 07:58:54 5.5 1.0-11.0 (%) Final Eosinophils 06/30/2024 07:58:54 0.0 0.0-6.0 (%) Final Basos 06/30/2024 07:58:54 0.3 0.0-2.0 (%) Final Absolute Segs 06/30/2024 07:58:54 10.67 Above high normal 1.80-7.70 (K/uL) Final Lymphs, absolute 06/30/2024 07:58:54 1.53 1.00-4.80 (K/ul) Final Monos, Abs 06/30/2024 07:58:54 0.71 0.00-1.10 (K/uL) Final Eos, Abs 06/30/2024 07:58:54 0.00 0.00-0.70 (K/uL) Final Basos, Abs 06/30/2024 07:58:54 0.04 0.00-0.20 (K/uL) Final Performing Location [facility] [place] [address]
--- OUTSIDE RECORDS SUMMARY | 2024-07-03 14:52 | External Medical Summary | Summary of Care ---
Author Name Unknown Organization [facility] Address [address] [place] [address] Phone [phone] Care Team Providers Care Commercial Airplane Pilot Name Role Phone Nannette Rock DO Primary Care Provider Reason for Referral * Social Care (Within 10 days (routine)) - Pending Review Specialty Diagnoses / Procedures Referred By Pete cedeno Referred To Contact Physician Coding Specialist Diagnoses Malignant neoplasm of upper-outer quadrant of left breast in female, 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) Metastasis to bone (HCC) Nannette Rock DO [address] [facility] [place] [address] Referral ID Status Reason Start Date Expiration Date Visits Requested Visits Authorized [id number] Pending Review Specialty Services Required 06/30/[phone] Question Answer Referral Priority Within 10 days (routine) Where should this appointment be scheduled? [facility] Role Marine Gear Keeper Marine Gear Keeper Referral Reason Complex Oncology Comments Is patient being transitioned from [facility] to Complex Case Management? No Reason for Visit * Reason Onset Date Comments Referral 06/30/2024 Encounter Details Date Type Department Care Team (Late st Contact Info) Description 06/30/2024 Telephone Hematology/Oncology Treatment, [place] [address] [place] [phone] Johnnie Arndt MD 200 [facility] [place] [address] Referral Allergies Active Allergy Reactions Criticality Noted Date [...] Measles/Mumps/Rubella Vaccine 04/17/1992 PPD 06/09/2013, 0,06/25/2006,2003,07/06/2002,07/10/2001 Seasonal Influenza Vac., MDV , IM, 0.5 mL (Fluzone) 07/14/2016,08/29/2011,10/17/2009,2001 Seasonal Influenza, PF, 6 M & above, [...] encounter Miscellaneous Notes * Telephone Encounter - Ann Bowers RN - 06/30/2024 4:40 PM EDT [id number] referral placed for Oncology Case Management, unsure if they will be able to assist. Reason for Call: Advice (Case management referral) Contact: Telephone Call Contact Type: Care Coordination Provider In-Basket: Yes Outcome: See above Face to face time spent with Patient (minutes): 0 Total Time including non face to face (minutes): 10 * Telephone Encounter - Robina Richey RN - 06/30/2024 4:16 PM EDT Pt presented to hem/onc clinic for chemo treatment today. Pt is asking for assistance in finding new housing that is accessible and affordable. Pt asked current landlord about the possibility of moving to a first floor apartment, as she currently has difficulty climbing stairs to the third floor where she lives. Pt will be receiving chemotherapy for the foreseeable future, which greatly affects her stamina. Pt is asking for a referral to case management or an oncology nurse navigator. Please advise, thank you. documented in this encounter Plan of Treatment Upcoming Encounters Date Type Department Care Team (Late st Contact Info) Description 07/01/2024 3:00 PM EDT Immunization/Injecti on Hematology/Oncology Treatment, [place] [address] [place] [address] Nataliia, Chair 11 Hem Onc Scene 200 [facility] [place], [place] [address] 07/21/2024 11:00 AM EDT Laboratory Laboratory [facility] [address] [facility] [place] [phone] Nataliia, Lab [facility] 200 [facility] [place] [address] 07/21/2024 11:30 AM EDT Office Visit Hematology/Oncology [facility] [place] [address] [facility] [place] [phone] Jada Jarquin CRNP [address] [place] [address] 07/21/2024 12:00 PM EDT Hem/Onc Treatment Hematology/Oncology [facility] 200 [facility], [place] [address] Nataliia, Chair 6 Hem Onc [facility] 200 [facility] [place], [place] [address] Scheduled Procedures Name Priority Associated Diagnoses Date/Ti me COLONOSCOPY FLEXIBLE PROXIMA L DIAGNOSTIC Recall Screening for colon cancer Scheduled Referrals Name Type Priority Associated Diagnoses Orde r Schedule POPULATION HEALTH REFERRAL OP Referral Within 10 days (routine) Malignant neoplasm of upper-outer quadrant of left breast in female, 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) Metastasis to bone (HCC) Ordered: 06/30/2024 Health Maintenance Due Date Last Done Comments [...] 01/07/2023, Additional history exists TSH 03/24/2025 03/24/2024, /02/2023, 05/29/2022, Additional history exists Pap Smear 01/13/2027 [...] this encounter Medical Devices Implanted Type Area Pad Machine Operator Device Identifier Shelf Expiration Date Model / Serial / Lot Port Implant W8f Poly Cath - [id number] Implanted:Qty : 1 on 03/31/2024 by Kesha Orlando MD at OR [facility] Right: Subclavian CR BARD : PERIPHERAL VASCULAR 02/26/2025 [id number] / / [id number] documented as of this encounter Visit Diagnoses Diagnosis Malignant neoplasm of upper-outer quadrant of left breast in female, estrogen receptor positive (HCC)- Primary 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 Question Answer Comments Discussion of Advance Directives occurred with: Patient Care Teams Commercial Airplane Pilot Relationship Specialty Start Date End Date Nannette Rock DO [address] [place] [address] PCP - General Family Medicine 11/09/19 documented as of this encounter
--- OUTSIDE RECORDS SUMMARY | 2024-07-03 14:52 | External Medical Summary | Summary of Care ---
Author Name Unknown Organization [facility] Address [address] [place] [address] Phone [phone] Care Team Providers Care Spool Carrier Name Role Phone Nannette Rock DO Primary Care Provider Reason for Referral * Social Care (Within 10 days (routine)) - Pending Review Specialty Diagnoses / Procedures Referred By Pete cedeno Referred To Contact Lumber Loader Diagnoses Malignant neoplasm of upper-outer quadrant of left breast in female, 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) Metastasis to bone (HCC) Nannette Rock DO [address] [facility] [place] [address] Referral ID Status Reason Start Date Expiration Date Visits Requested Visits Authorized [id number] Pending Review Specialty Services Required 06/30/[phone] Question Answer Referral Priority Within 10 days (routine) Where should this appointment be scheduled? [facility] Role Photo Specialist Photo Specialist Referral Reason Complex Oncology Comments Is patient being transitioned from [facility] to Complex Case Management? No Reason for Visit * Reason Onset Date Comments Referral 06/30/2024 Encounter Details Date Type Department Care Team (Late st Contact Info) Description 06/30/2024 Telephone Hematology/Oncology Treatment, [place] [address] [place] [phone] Johnnie Arndt MD [address] [facility] [place] [address] Referral Allergies Active Allergy Reactions Criticality Noted [...] Bowers RN - 06/30/2024 4:40 PM EDT [id number] referral placed for Oncology Case Management, unsure [...] 3:00 PM EDT Immunization/Injecti on Hematology/Oncology Treatment, [place] [address] [place] [address] Nataliia, Chair 11 Hem Onc Scene [address] [facility] [place], [place] [address] 07/21/2024 11:00 AM EDT Laboratory Laboratory [facility] [address] [facility] [place] [phone] Nataliia, Lab [facility] [address] [facility] [place] [address] 07/21/2024 11:30 AM EDT Office Visit Hematology/Oncology [facility] [place] [address] [facility] [place] [phone] Jada Jarquin CRNP [address] [place] [address] 07/21/2024 12:00 PM EDT Hem/Onc Treatment Hematology/Oncology [facility] 200 [facility], [place] [address] Nataliia, Chair [address] [facility] [address] [facility] [place], [place] [address] Scheduled Procedures Name Priority Associated Diagnoses Date/Ti [...] this encounter Medical Devices Implanted Type Area Mandarin Teacher Device Identifier Shelf Expiration Date Model / Serial / Lot Port Implant W8f Poly Cath - [id number] Implanted:Qty : 1 on 03/31/2024 by Kesha Orlando MD at OR [facility] Right: Subclavian CR BARD : PERIPHERAL VASCULAR 02/26/2025 [id number] / / [id number] documented as of this encounter Visit Diagnoses [...] Advance Directives occurred with: Patient Care Teams Spool Carrier Relationship Specialty Start Date End Date Nannette Rock DO [address] [place] [address] PCP - General Family Medicine 11/09/19 documented as of this encounter
--- OUTSIDE RECORDS SUMMARY | 2024-07-03 14:53 | External Medical Summary | Summary of Care ---
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 30 Tablet 06/14/2024 Active documented as of this encounter (statuses as of 06/14/2024) Active Problems Problem Noted Date Diagnosed Date [...] as of this encounter (statuses as of 06/14/2024) Resolved Problems Problem Noted Date Diagnosed Date Resolved Date Varicella without complication 11/17/2018 11/17/2018 Allergic conjunctivitis, bilateral 11/17/2018 11/17/2018 Encounter for supervision of other normal 09/10/2006 11/17/2018 Overview: ICD-10 update of inactive term Hypothyroidism 10/29/2004 11/07/2017 Normal , first 04/07/200302/2007 Female infertility 07/07/2002 9 documented as of this encounter (statuses as of 06/14/2024) Immunizations Name Administration Dates Next Due COVID-19 mRNA, LNP-s, No Pre serve, 2-Dose Series (Moderna) 11/08/2020,10/11/2020 DTaP Dipth/Tet/Acell Pertussis (Infanrix), Peds 06/02/2009 H1N1 2009 Influenza, Intranasal 10/17/2009 PPD 06/09/2013,10/17/2009,06/25/2006 Seasonal Influenza, PF, 6 M & above, IM , (FluLaval or Fluzone) 06/17/2020,11/07/2017 Seasonal Influenza, Trivalen t, (IIV3), with Preserv, (Fluzone) 07/14/2016,08/29/2011,10/17/2009 TD, Preservative Free 06/26/2020 TDAP, Age 7 [...] encounter Miscellaneous Notes * Telephone Encounter - Salty Arndt MD - 06/14/2024 1:29 PM EDT E-prescribed oxycodone. * Telephone Encounter - Salty Arndt MD - 06/14/2024 1:29 PM EDTSigned Prescriptions: Disp Refills oxyCODONE HCl 5 MG Oral Tablet (Oxy IR) 30 Tab*0 Sig: Take 1 Tablet by mouth every 4 hours as needed for Pain, Moderate. Authorizing Provider: SALTY ARNDT * Telephone Encounter - Lili Lee RN - 06/14/2024 9:55 AM EDT Patient received C4D1 perjeta, ontruzant, taxotere 06/09/24, udenyca 06/10/24. Called and spoke to patient. She states that starting a few days ago, she noticed tingling in her fingers and feet. States that it feels "weird" when she is walking- not quite off balance, but doesn't feel right. 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 Patient states that she has also been experiencing muscle/ bone pain, when she lays down at night she almost wants to cry because the pain is so significant. Has been trying to take tylenol, which did help take the edge off the pain but she still had difficulty sleeping. She confirmed that she did take claritin x5 days with udenyca injection. Patient has listed allergy to percocet from 2010. Patient states that she has taken oxycodone multiple times since then with no reaction/ side effects. PDMP reviewed - triazolam filled 05/05/24 for 2 tablets - lomotil filled 04/13/24 for 28 tablets - oxycodone filled several times, most recently 02/07/[address] Arndt: BRYI on neuropathy/ pain. Would you want to prescribe oxycodone for patient to take as needed for bone pain from udenyca? * Telephone Encounter - Kymberly White OSA - 06/14/2024 9:39 AM EDT Pt stating she has tingling in feet & hand and when she lays down she has severe bone pain. Pt would like a call back. Please advise. documented in this encounter Plan of Treatment Upcoming Encounters Date Type Department Care Team (Late st Contact Info) Description 06/21/2024 7:15 AM EDT Cardiac Studies Cardiac Studies, [facility] [address] [facility] [place] [address] 06/22/2024 8:45 AM EDT Imaging Radiology [facility]st [facility] [address] [facility] [place] [address] 06/30/2024 7:40 AM EDT Laboratory Laboratory [facility] [address] [place] [phone] Nataliia, Lab [facility] [address] [facility] [place] [address] 06/30/2024 8:15 AM EDT Office Visit Hematology/Oncology [facility] [place] [address] [place] [phone] Salty Arndt MD [address] [place] [address] 06/30/2024 8:45 AM EDT [facility] [address] [place] [phone] Nataliia, Chair 7 Hem Onc [facility] [address] [facility] [address] Scheduled Procedures Name Priority Associated Diagnoses Date/Ti [...] 05/31, 11/17/2018, Additional history exists Diabetes Screening 06/09/2027 06/09/2024, 0 05/19/2024, 04/28/2024, Additional history exists Cervical Cancer Screening 01/13/2029 [...] this encounter Medical Devices Implanted Type Area Lcsw Device Identifier Shelf Expiration Date Model / Serial / Lot Port Implant W8f Poly Cath - [id number] Implanted:Qty : 1 on 03/31/2024 by Kesha Orlando MD at OR [facility] [address] Right: Subclavian CR BARD : PERIPHERAL VASCULAR 02/26/2025 [id number] / / [id number] documented as of this encounter Visit Diagnoses Diagnosis 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 Question Answer Comments Discussion of Advance Directives occurred with: Patient Care Teams Bioinformatics Scientist Relationship Specialty Start Date End Date Nannette Rock DO [address] [place] [address] PCP - General Family Medicine 11/09/19 documented as of this encounter
--- OUTSIDE RECORDS SUMMARY | 2024-07-03 14:53 | External Medical Summary ---
Author Name Unknown Address Unknown Organization K09:[facility] [place] [address] Laboratory Report Ordering Provider Test Date Status SANDEE POND 06/18/2024 13:01:15 Final Observation Date Value Abnormality Reference (Units ) Status BUN 06/18/2024 13:01:15 7 6-20 (mg/dL) Final Creatinine 06/18/2024 13:01:15 1.0 0.5-1.0 (mg/dL) Final Glomerular filtration rate/1.73 sq M.predicted [Volume Rate/Area] in Serum, Plasma or Blood by Creatinine-based formula (CKD-EPI) 06/18/2024 13:01:15 67 >=60 (mL/min) Final eGFR is calculated based on the CKD-EPI 2020 equation. Sodium 06/18/2024 13:01:15 142 135-146 (m mol/L) Final Potassium 06/18/2024 13:01:15 3.0 Below low normal 3.5 -5.1 (mmol/L) Final Cl 06/18/2024 13:01:15 98 98-107 (mm ol/L) Final CO2 06/18/2024 13:01:15 28 22-32 (mmo l/L) Final Anion gap 06/18/2024 13:01:15 16 Above high normal 7- 15 (mmol/L) Final Glucose 06/18/2024 13:01:15 146 Above high normal 70 -120 (mg/dL) Final Albumin 06/18/2024 13:01:15 4.2 3.8-5.0 (g /dL) Final AST (Aspartate aminotransferase) 06/18/2024 13:01:15 44 Above high normal 10-35 (U/L) Final Alk Phos 06/18/2024 13:01:15 128 35-130 (U/ L) Final Bilirubin, Total 06/18/2024 13:01:15 1.7 Above high no rmal <=1.2 (mg/dL) Final Calcium 06/18/2024 13:01:15 9.8 8.4-10.2 ( mg/dL) Final Protein 06/18/2024 13:01:15 7.3 6.0-8.3 (g /dL) Final ALT (Alanine aminotransferase) 06/18/2024 13:01:15 41 Above high normal 10-35 (U/L) Final Performing Location [facility] [address] [place] [address]
--- OUTSIDE RECORDS SUMMARY | 2024-07-03 14:53 | External Medical Summary | Summary of Care ---
Author Name Unknown Organization [facility] Address [address] [place] [address] Phone [phone] Care Team Providers Care Call Center Professional Name Role Phone Medardo Rock DO Primary Care Provider Reason for Visit * Reason Onset Date Comments Advice 06/18/2024 Dr. Arndt Encounter Details Date Type Department Care Team (Late st Contact Info) Description 06/18/2024 Telephone Hematology/Oncology [facility] [place] [address] [facility] [address] Services, Scheduling [address] [place] [address] Advice (Dr. Arndt ) Allergies Active Allergy [...] No 01/14/2024 Does the household have a [facility] source of income? (Household - for [...] other than bilirubin level of 1.7 -WBC [address], Hemoglobin and hematocrit -15.3/44.9, Platelet count of 242181 Hypokalemia noted Would like to give her [...] Ordered IV hydration * Telephone Encounter - iLli Lee RN - 06/18/2024 9:01 AM EDT Patient received C4 THP on 06/09/24, [place]ale[place] 06/10/24. Called and spoke to patient. She [...] transfer to specialty Please contact pt at [phone]. Thank you. documented in this encounter Plan of Treatment Upcoming Encounters Date Type Department Care Team (Late st Contact Info) Description 06/22/2024 8:45 AM EDT Imaging Radiology [facility] 1st Floor, [place] [address] [place] [address] 06/30/2024 7:40 AM EDT Laboratory Laboratory [facility] William [address] [place] [phone] [place], Lab [address]en[address] [place] [address] 06/30/2024 8:15 AM EDT Office Visit Hematology/Oncology [facility] [place] [address] [facility] [place], [place] [address] Salty Arndt MD [address] [facility] [address] 06/30/2024 8:45 AM EDT Hem/Onc Treatment [facility]ology[facility] [place] [facility] [phone] Nataliia, Chair 7 Hem Onc [address] [place], [place] [address] Scheduled Procedures Name Priority Associated Diagnoses Date/Ti [...] this encounter Medical Devices Implanted Type Area Mobile Home Laborer Device Identifier Shelf Expiration Date Model / Serial / Lot Port Implant W8f Poly Cath - [id number] Implanted:Qty : 1 on 03/31/2024 by Kesha Orlando MD at OR [facility] [address] [facility] Right: Subclavian CR BARD : PERIPHERAL VASCULAR 02/26/2025 [id number] / / [id number] documented as of this encounter Visit Diagnoses [...] Advance Directives occurred with: Patient Care Teams Call Center Professional Relationship Specialty Start Date End Date Medardo Rock DO [address] [place] [address] PCP - General Family Medicine 11/09/19 documented as of this encounter
--- OUTSIDE RECORDS SUMMARY | 2024-07-03 14:53 | External Medical Summary | Summary of Care ---
Author Name Unknown Organization [facility] Address [address] [place] [address] Phone [phone] Care Team Providers Care Grommet Machine Operator Name Role Phone Nannette Rock DO Primary Care Provider Reason for Visit * Reason Onset Date Comments Advice 06/18/2024 Dr. Arndt Encounter Details Date Type Department Care Team (Late st Contact Info) Description 06/18/2024 Telephone Hematology/Oncology [facility] [place] [facility] [address] Services, Scheduling [address] [place] [address] Advice (Dr. Arndt ) Allergies Active Allergy Reactions Criticality Noted Date Comments Amoxicillin 10/23/2001 hives Dust 01/28/2023 Other Allergy (See Comments) Rash Low 01/25/2020 Adhesive Sensitive Oxycodone-Acetaminophe n Other (Please comment) 04/22/2011 Chest pain and shortness of breath documented as of this encounter (statuses as of 06/18/2024) Medications Medication Sig Dispensed Refills Start Date [...] as of this encounter (statuses as of 06/18/2024) Active Problems Problem Noted Date Diagnosed Date [...] as of this encounter (statuses as of 06/18/2024) Resolved Problems Problem Noted Date Diagnosed Date Resolved Date Varicella without complication 11/17/2018 11/17/2018 Allergic conjunctivitis, bilateral 11/17/2018 11/17/2018 Encounter for supervision of other normal 09/10/2006 11/17/2018 Overview: ICD-10 update of inactive term Hypothyroidism 10/29/2004 11/07/2017 Normal , first 04/07/20030 02/2007 Female infertility 07/07/2002 9 documented as of this encounter (statuses as of 06/18/2024) Immunizations Name Administration Dates Next Due COVID-19 [...] encounter Miscellaneous Notes * Telephone Encounter - Enma Floyd OSA - 06/18/2024 8:39 AM EDT What is the reason for call? Pt has not been able to eat for the past 2-3 days, is having trouble drinking and throwing up clear liquid and bile. What Clinic is the patient trying to reach? Specialty [place]- Is the clinic open? Yes- Other: transfer to specialty Please contact pt at [phone]. Thank you. documented in this encounter Plan of Treatment Upcoming Encounters Date Type Department Care Team (Late st Contact Info) Description 06/21/2024 7:15 AM EDT Cardiac Studies Cardiac Studies, [address] [place] [address] 06/22/2024 8:45 AM EDT Imaging Radiology [facility] 1st [facility], [address] [place] [address] 06/30/2024 7:40 AM EDT Laboratory Laboratory [facility] [place] [address] [place], [place] [address] Nataliia, Lab [address] 200 [facility] [place] [address] 06/30/2024 8:15 AM EDT Office Visit Hematology/Oncology [facility] [place] [address] [place] [phone] Johnnie Arndt MD [address] [place] [address] 06/30/2024 8:45 AM EDT Hem/Onc Treatment Hematology/Oncology [facility] [address] [place] [address] Nataliia, Chair 7 Hem Onc [facility] 200 [facility] [place] [address] Scheduled Procedures Name Priority Associated Diagnoses Date/Ti [...] this encounter Medical Devices Implanted Type Area Department Secretary Device Identifier Shelf Expiration Date Model / Serial / Lot Port Implant W8f Poly Cath - [id number] Implanted:Qty : 1 on 03/31/2024 by Kesha Orlando MD at OR [facility] Right: Subclavian CR BARD : PERIPHERAL VASCULAR 02/26/2025 [id number] / / [id number] documented as of this encounter Advance Directives * Full Code (Latest Code Status on File) Date Activated Date Inactivated Comments 03/31/2024 12:17 PM 03/31/2024 7:50 PM This order re flects the patients wishes and were consensually agreed upon. Question Answer Comments Discussion of Advance Directives occurred with: Patient Care Teams Grommet Machine Operator Relationship Specialty Start Date End Date Nannette Rock DO [address] [place] [address] PCP - General Family Medicine 11/09/19 documented as of this encounter
--- OUTSIDE RECORDS SUMMARY | 2024-07-03 14:53 | External Medical Summary | Summary of Care ---
Author Name Unknown Organization [facility] Address [address] [place] [address] Phone [phone] Care Team Providers Care Brine Supervisor Name Role Phone Nannette Rock DO Primary Care Provider Reason for Visit * Reason Onset Date Comments Advice 06/18/2024 Dr. Arndt Encounter Details Date Type Department Care Team (Late st Contact Info) Description 06/18/2024 Telephone Hematology/Oncology [facility] [place] 200 [facility] [address] Services, Scheduling [address] [place] [address] Advice (Dr. Arndt ) Allergies Active Allergy [...] - 06/18/2024 9:01 AM EDT Patient received THP on 06/09/24, udlisandroa 06/10/24. Called and spoke to patient. She [...] transfer to specialty Please contact pt at [phone]. Thank you. documented in this encounter Plan of Treatment Upcoming Encounters Date Type Department Care Team (Late st Contact Info) Description 06/18/2024 12:30 PM EDT Hem/Onc Treatment Hematology/Oncology Treatment, [place] [address] [place] [phone] Nataliia, Chair 2 Hem Onc [address] [place] [address] 06/21/2024 7:15 AM EDT Cardiac Studies Cardiac Studies, [facility] [address] [facility] [place] [address] 06/22/2024 8:45 AM EDT Imaging [facility] [address] [facility] [place] [address] 06/30/2024 7:40 AM EDT Laboratory Laboratory [facility] [place] [address] [place] [phone] Nataliia, Lab [facility] 200 [facility] [place] [address] 06/30/2024 8:15 AM EDT Office Visit Hematology/Oncology [facility] [place] [address] [facility] [place] [phone] Johnnie Arndt MD 200 [facility] [place] [address] 06/30/2024 8:45 AM EDT Hem/Onc Treatment Hematology/Oncology Treatment, [place] [address] [place], [place] [phone] Park, Chair 7 Hem Onc [facility] 200 [facility] [place], [place] [address] Scheduled Procedures Name Priority Associated Diagnoses Date/Ti [...] this encounter Medical Devices Implanted Type Area Sap Security Consultant Device Identifier Shelf Expiration Date Model / Serial / Lot Port Implant W8f Poly Cath - [id number] Implanted:Qty : 1 on 03/31/2024 by Kesha Orlando MD at OR [facility] Right: Subclavian CR BARD : PERIPHERAL VASCULAR 02/26/2025 [id number] / / [id number] documented as of this encounter Advance Directives * Full Code (Latest Code Status on File) Date Activated Date Inactivated Comments 03/31/2024 12:17 PM 03/31/2024 7:50 PM This order re flects the patients wishes and were consensually agreed upon. Question Answer Comments Discussion of Advance Directives occurred with: Patient Care Teams Brine Supervisor Relationship Specialty Start Date End Date Nannette Rock DO [address] [place] [address] PCP - General Family Medicine 11/09/19 documented as of this encounter
--- OUTSIDE RECORDS SUMMARY | 2024-07-03 14:53 | External Medical Summary | Summary of Care ---
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); Malignant neoplasm of upper-outer quadrant of left breast in female, estrogen receptor positive (HCC); Dehydration; Hypokalemia Allergies Active Allergy Reactions Criticality Noted Date [...] term Hypothyroidism 10/29/2004 11/07/2017 Normal , first 04/07/2003/02/2007 Female infertility 07/07/2002 9 documented as of [...] Sign Reading Time Taken Comments Blood Pressure 119/83 06/18/2024 12:41 PM EDT Pulse 115 06/18/2024 12:41 PM EDT Temperature 36.8 C (98.3 F) 06/18/2024 1 2:41 PM EDT Respiratory Rate 16 06/18/2024 12:4 1 PM EDT Oxygen Saturation - - Inhaled Oxygen Concentration - - Weight 89.7 kg (197 lb 12.8 oz) 024 12:41 PM EDT Height - - Body Mass Index 30.98 03/31/2024 12:27 PM EDT documented in this encounter Nursing Notes * Robina Richey RN - 06/18/2024 3:21 PM EDT Pt completed treatment without issues. Pt reports feeling "a little better." Encouraged pt to contact the clinic if symptoms worsen or fail to improve; pt verbalized understanding. VAD flushed with 10 ml NSS and Heparin 5 ml (100 units/ml). López needle removed intact. Goals: pt will remain free from injury. Possible barriers to meeting goals: ambulation with IV pole Stability of the patient: Moderately stable - low risk of patient condition declining or worsening Summary regarding today's goals: Met: . Pt remained free from injury during treatment today. Discharged in stable condition. * Robina Richey RN - 06/18/2024 2:42 PM EDT Pt presents to clinic with spouse for IV hydration with labs from port. Pt c/o not eating for 3 days due to emesis (see TE). VAD accessed; specimen collected for ordered labs. NSS Infusing. Safety and Risk for Injury Patient will remain free from injury. Ensure appropriate safety devices are available. Provide and maintain safe environment. Per Dr. Arndt, administer K+ 20meq for hypokalemia (3.0 today). documented in this encounter Plan of Treatment Upcoming Encounters Date Type Department Care Team (Late st Contact Info) Description 06/21/2024 7:15 AM EDT Cardiac Studies Cardiac Studies, [address] [place] [address] 06/22/2024 8:45 AM EDT [facility] [address] [place] [address] 06/30/2024 7:40 AM EDT Laboratory Laboratory [employer] [address] [place] [phone] Kirsty [place] [address] [place] [address] 06/30/2024 8:15 AM EDT Office Visit Hematology/Oncology [facility] [address] [place] [phone] Johnnie Arndt MD [address] [place] [address] 06/30/2024 8:45 AM EDT Hem/Onc Treatment Hematology/Oncology Treatment, [place] [address] [place] [phone] [place], Chair 7 Hem Onc [place] [address] [place], [place] [address] Scheduled Procedures Name Priority Associated Diagnoses Date/Ti [...] this encounter Medical Devices Implanted Type Area [employer] Cafeter[employer] Cook Device Identifier Shelf Expiration Date Model / Serial / Lot Port Implant W8f Poly Cath - [id number] Implanted:Qty : 1 on 03/31/2024 by Kesha Orlando MD at OR [facility] Right: Subclavian CR BARD : PERIPHERAL VASCULAR 02/26/2025 [id number] / / [id number] documented as of this encounter Procedures Procedure Name Priority Date/Time Associated Diagnosis Comments DIFFERENTIAL, AUTOMATED STAT 06/18/2024 1:01 PM EDT Malignant neoplasm of upper-outer quadrant of left breast in female, estrogen receptor positive (HCC) COMPREHENSIVE METABOLIC PANEL STAT 06/18/2024 1:01 PM EDT Malignant neoplasm of upper-outer quadrant of left breast in female, estrogen receptor positive (HCC) CBC STAT 06/18/2024 1:01 PM EDT Malignant neoplasm of upper-outer quadrant of left breast in female, estrogen receptor positive (HCC) CBC STAT 06/18/2024 1:01 PM EDT Malignant neoplasm of upper-outer quadrant of left breast in female, estrogen receptor positive (HCC) DIFFERENTIAL, TECHNOLOGIST REVIEW Routine 06/18/2024 1:01 PM EDT Malignant neoplasm of upper-outer quadrant of left breast in female, estrogen receptor positive (HCC) documented in this encounter Results * (ABNORMAL) DIFFERENTIAL, TECHNOLOGIST REVIEW (06/18/2024 1:01 PM EDT) WBC 24.53(H) 4.00 - 10.80 K/uL 06/18/2024 1:20 PM EDT [facility] 56 Neutrophils % 80.0(H) 40.0 - 75.0 % 06/18/2024 1:20 PM EDT [facility] 56 Lymphocytes % 12.0(L) 18.0 - 42.0 % 06/18/2024 1:20 PM EDT [facility] 56 Monocytes % 4.0 1.0 - 11.0 % 06/18/2024 1:20 PM EDT [address] Metamyelocytes % 3.0(H) <=0.0 % 06/18/20 1:20 PM EDT [facility] 56 Myelocytes % 1.0(H) <=0.0 % 06/18/2024 1:20 PM EDT [address] Absolute Neutrophils 19.62(H) 1.80 - 7.70 K/uL 06/18/2024 1:20 PM EDT [address] Absolute Lymphocytes 2.94 1.00 - 4.80 K/uL 06/18/2024 1:20 PM EDT [address] Absolute Monocytes 0.98 0.00 - 1.10 K/uL 06/18/2024 1:20 PM EDT [address] Absolute Metamyelocytes 0.74(H) <=0.00 K/uL 06/18/2024 1:20 PM EDT [address] Absolute Myelocytes 0.25(H) <=0.00 K/uL 06/18/2024 1:20 PM EDT [address] nRBCs 1(H) <=0 /100 WBCs 06/18/2024 1:20 PM EDT [facility] 56 Blood Venous blood specimen / Unknown Central Line / Unknown 06/18/2024 1:01 PM EDT 06/18/2024 1:03 PM EDT Johnnie Arndt MD LAB BLOOD ORDERABLES [facility] [address] [place] [address] * DIFFERENTIAL, AUTOMATED (06/18/2024 1:01 PM EDT) Blood Venous blood specimen / Unknown Central Line / Unknown 06/18/2024 1:01 PM EDT 06/18/2024 1:03 PM EDT Johnnie Arndt MD LAB BLOOD ORDERABLES [address] [place], [place] [id number] * (ABNORMAL) CBC (06/18/2024 1:01 PM EDT) WBC 24.53(H) 4.00 - 10.80 K/uL 06/18/2024 1:[address] RBC 4.91 3.85 - 5.15 M/uL 06/18/2024 1:20 PM EDT [address] HGB 15.3 12.0 - 15.3 g/dL 06/18/2024 1:[address] HCT 44.9 36.0 - 45.2 % 06/18/2024 1:20 PM EDT [facility] 56 MCV 91.4 81.5 - 97.5 fL 06/18/2024 1:[address]T [address] MCH 31.2 27.0 - 34.0 pg 06/18/2024 1:20 PM EDT [facility] 56 MCHC 34.1 32.0 - 36.0 g/dL 06/18/2024 1:20 PM EDT [facility] 56 RDW 15.5 11.5 - 15.5 % 06/18/2024 1:20 PM EDT [facility] 56 PLT 249 140 - 400 K/uL 06/18/2024 1:20 PM EDT [facility] 56 MPV 10.0 6.6 - 11.1 fL 06/18/2024 1:20 PM EDT [facility] 56 Blood Venous blood specimen / Unknown Central Line / Unknown 06/18/2024 1:01 PM EDT 06/18/2024 1:03 PM EDT Johnnie Arndt MD LAB BLOOD ORDERABLES [address] [place] [address] * (ABNORMAL) COMPREHENSIVE METABOLIC PANEL (06/18/2024 1:01 PM EDT) BUN 7 6 - 20 mg/dL 06/18/2024 1:[address] CREATININE 1.0 0.5 - 1.0 mg/dL 06/18/2024 1:[address] EGFR 67 >=60 mL/min 06/18/2024 1:45 PM EDT [address] Comment:eGFR is calculated b ased on the CKD-EPI 2020 equation. SODIUM 142 135 - 146 mmol/L 06/18/2024 1:45 PM EDT [address] POTASSIUM 3.0(L) 3.5 - 5.1 mmol/L 06/18/2024 1:45 [address] ED[address] CHLORIDE 98 98 - 107 mmol/L 06/18/2024 1:[address] CO2 28 22 - 32 mmol/L 06/18/2024 1:45 PM EDT [address] ANION GAP 16(H) 7 - 15 mmol/L 06/18/2024 1:45 PM EDT [address] GLUCOSE 146(H) 70 - 120 mg/dL 06/18/2024 1:45 PM EDT [address] Albumin 4.2 3.8 - 5.0 g/dL 06/18/2024 1:[address] AST 44(H) 10 - 35 U/L 06/18/2024 1:45 PM EDT [address] Alkaline Phosphatase 128 35 - 130 U/L 06/18/2024 1:45 PM EDT [address] Bilirubin, Total 1.7(H) <=1.2 mg/dL 06/18/2024 1:45 PM EDT [address] CALCIUM 9.8 8.4 - 10.2 mg/dL 06/18/2024 1:45 PM EDT [facility] 56- Protein 7.3 6.0 - 8.3 g/dL 06/18/2024 1:45 PM EDT [facility] 56- ALT 41(H) 10 - 35 U/L 06/18/2024 1:45 PM EDT [facility] 56- Blood Venous blood specimen / Unknown Central Line / Unknown 06/18/2024 1:01 PM EDT 06/18/2024 1:03 PM EDT Johnnie Arndt MD LAB BLOOD ORDERABLES [facility] 56- [address] [place] [address] documented in this encounter Visit Diagnoses Diagnosis Intraductal carcinoma of left breast- Primary 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 Given 06/18/2024 3:12 PM EDT 500 Units sodium chloride 0.9 % flush central line 10 mL 10 mL, IV Push, PRN Other, IV Flush, Starting on Fri06/18/24 at 1257, Until 06/19/24 at 1256, For 24 hours, Do not flush if lock, PICC, or central line not in place; IV infusing or unable to flush. Given 06/18/2024 3:11 PM EDT 10 mL Inactive Administered Medications - up to 3 most recent administrations Medication Order MAR Action Action Date Dose Rate Site NSS infusion FOR HYDRATION Intravenous, at 500 mL/hr Administer over 2 Hours, ONCE, 1 dose, On 9/20/24 at 1400 Start Infusion 06/18/2024 12:59 PM EDT 1,000 mL 500 mL/hr potassium chloride 20 mEq in 50 mL ivpb LOCKED DOSE 20 mEq, Central IV, ONCE, 1 dose, On Fri06/18/24 at 1430, Administer over 60 Minutes, Standard infusion duration is 60 minutes. Start Infusion 06/18/2024 2:01 PM EDT 20 mEq 50 mL/hr documented in this encounter Advance Directives * Full Code (Latest Code Status on File) Date Activated Date Inactivated Comments 03/31/2024 12:17 PM 03/31/2024 7:50 PM This order re flects the patients wishes and were consensually agreed upon. Question Answer Comments Discussion of Advance Directives occurred with: Patient Care Teams Director Surgical Relationship Specialty Start Date End Date Nannette Rock DO [address] [place] [address] PCP - General Family Medicine 11/09/19 documented as of this encounter
--- OUTSIDE RECORDS SUMMARY | 2024-07-03 14:53 | External Medical Summary | Summary of Care ---
Author Name Unknown Organization [facility] Address [address] [place] [address] Phone [phone] Care Team Providers Care Merchandise Manager Name Role Phone Nannette Rock DO Primary Care Provider Reason for Visit * Reason Onset Date Comments Advice 06/18/2024 Dr. Arndt Encounter Details Date Type Department Care Team (Late st Contact Info) Description 06/18/2024 Telephone Hematology/Oncology [facility] [address] Services, Scheduling [address] [place] [address] Advice (Dr. Arndt ) Allergies Active Allergy [...] other than bilirubin level of 1.7 -WBC 30568, Hemoglobin and hematocrit -15.3/44.9, Platelet count of 188327 Hypokalemia noted Would like to give her [...] transfer to specialty Please contact pt at [phone]. Thank you. documented in this encounter Plan of Treatment Upcoming Encounters Date Type Department Care Team (Late st Contact Info) Description 06/21/2024 7:15 AM EDT Cardiac Studies Cardiac Studies, [facility] 132 [facility] [place] [address] 06/22/2024 8:45 AM EDT Imaging Radiology [facility] 1st [facility] 132 [facility] [place] [address] 06/30/2024 7:40 AM EDT Laboratory Laboratory [facility] [place] [address] [place] [phone] [place], Lab [address] [place] [address] 06/30/2024 8:15 AM EDT Office Visit Hematology/Oncology [facility] [address] [place] [phone] Salty Arndt MD [address] [place] [address] 06/30/2024 8:45 AM EDT Hem[facility] [address] [place] [phone] Nataliia, Chair 7 Hem Onc [facility] 200 [facility] [place] [address] Scheduled Procedures Name Priority Associated Diagnoses Date/Ti [...] this encounter Medical Devices Implanted Type Area Internet Systems Administrator Device Identifier Shelf Expiration Date Model / Serial / Lot Port Implant W8f Poly Cath - [id number] Implanted:Qty : 1 on 03/31/2024 by Kesha Orlando MD at OR [facility] Right: Subclavian CR BARD : PERIPHERAL VASCULAR 02/26/2025 [id number] / / [id number] documented as of this encounter Visit Diagnoses [...] Advance Directives occurred with: Patient Care Teams Merchandise Manager Relationship Specialty Start Date End Date Nannette Rock DO [address] [place] [address] PCP - General Family Medicine 11/09/19 documented as of this encounter
--- OUTSIDE RECORDS SUMMARY | 2024-07-03 14:53 | External Medical Summary ---
Author Name Unknown Address Unknown Organization K09:[facility] 56-02 - [address] [place] [address] Laboratory Report Ordering Provider Test Date Status SANDEE POND 06/18/2024 13:01:15 Final Observation Date Value Abnormality Reference (Units ) Status SYNC LEUKOCYTES IN BLOOD BY AUTOMATED COUNT 06/18/2024 13:01:15 24.53 Above high normal 4.00-10.80 (K/uL) Final Neutrophils/100 leukocytes in Blood by Manual count 06/18/2024 13:01:15 80.0 Above high normal 40.0-75.0 (%) Final Lymphocytes/100 leukocytes in Blood by Manual count 06/18/2024 13:01:15 12.0 Below low normal 18.0-42.0 (%) Final Monocytes/100 leukocytes in Blood by Manual count 06/18/2024 13:01:15 4.0 1.0-11.0 (%) Final Metamyelocytes/100 leukocytes in Blood by Manual count 06/18/2024 13:01:15 3.0 Above high normal <=0.0 (%) Final Myelocytes/100 leukocytes in Blood by Manual count 06/18/2024 13:01:15 1.0 Above high normal <=0.0 (%) Final Neutrophils [#/volume] in Blood by Manual count 06/18/2024 13:01:15 19.62 Above high normal 1.80-7.70 (K/uL) Final Lymphocytes [#/volume] in Blood by Manual count 06/18/2024 13:01:15 2.94 1.00-4.80 (K/uL) Final Monocytes [#/volume] in Blood by Manual count 06/18/2024 13:01:15 0.98 0.00-1.10 (K/uL) Final Metamyelocytes [#/volume] in Blood by Manual count 06/18/2024 13:01:15 0.74 Above high normal <=0.00 (K/uL) Final Myelocytes [#/volume] in Blood by Manual count 06/18/2024 13:01:15 0.25 Above high normal <=0.00 (K/uL) Final Nucleated erythrocytes/100 leukocytes [Ratio] in Blood by Automated count 06/18/2024 13:01:15 1 Above high normal <=0 (/100 WBCs) Final Performing Location [facility] 56- 02 - [address] [place] [address]
--- OUTSIDE RECORDS SUMMARY | 2024-07-03 14:53 | External Medical Summary | Summary of Care ---
Author Name Unknown Organization [facility] Address [address] [place] [address] Phone [phone] Care Team Providers Care Risk Management Analyst Name Role Phone Medardo Rock DO Primary Care Provider Reason for Visit * Reason Onset Date Comments Advice 06/18/2024 Dr. Arndt Encounter Details Date Type Department Care Team (Late st Contact Info) Description 06/18/2024 Telephone Hematology/Oncology [facility] [place] [facility] [address] Services, Scheduling [address] [place] [address] Advice (Dr. Arndt ) Allergies Active Allergy [...] No 01/14/2024 Does the household have a [facility] source [facility] income? (Household - for [...] as of this encounter Miscellaneous Notes * Addendum Note - Medardo Rock DO [...] other than bilirubin level of 1.7 -WBC 71647, Hemoglobin and hematocrit -15.3/44.9, Platelet count of 358633 Hypokalemia noted Would like to give her [...] transfer to specialty Please contact pt at [phone]. Thank you. documented in this encounter Plan of Treatment Upcoming Encounters Date Type Department Care Team (Late st Contact Info) Description 06/21/2024 7:15 AM EDT Cardiac Studies [address], [address] [address] 06/22/2024 8:45 AM EDT Imaging Radiology [facility] 1st [facility] 132 [facility] [place] [address] 06/30/2024 7:40 AM EDT Laboratory Laboratory [facility] Natal[place]ia [place] [address] [place] [phone] Kirsty William [facility] [address] [place] [address] 06/30/2024 8:15 AM EDT Office Visit Hematology/Oncology [facility] [place] [address] [place] [phone] Salty Arndt MD 200 [facility] [place] [address] 06/30/2024 8:45 AM EDT Hem/Onc Treatment Hematology/Oncology Treatment, [place] [address] [place] [phone] Park, Chair 7 Hem Onc [facility] 200 [facility] [place], [place] [address] Scheduled Procedures Name Priority Associated Diagnoses Date/Ti [...] this encounter Medical Devices Implanted Type Area Flatwork Supervisor Device Identifier Shelf Expiration Date Model / Serial / Lot Port Implant W8f Poly Cath - [id number] Implanted:Qty : 1 on 03/31/2024 by Kesha Orlando MD at OR [facility] Right: Subclavian CR BARD : PERIPHERAL VASCULAR 02/26/2025 [id number] / / [id number] documented as of this encounter Visit Diagnoses [...] Advance Directives occurred with: Patient Care Teams Risk Management Analyst Relationship Specialty Start Date End Date Medardo Rock DO [address] [place] [address] PCP - General Family Medicine 11/09/19 documented as of this encounter
--- OUTSIDE RECORDS SUMMARY | 2024-07-03 14:53 | External Medical Summary ---
Author Name Unknown Address Unknown Organization K09:[facility] [place] [address] Laboratory Report Ordering Provider Test Date Status SANDEE POND 06/18/2024 13:01:15 Final Observation Date Value Abnormality Reference (Units ) Status WBC, Total 06/18/2024 13:01:15 24.53 Above high normal 4 .00-10.80 (K/uL) Final RBC 06/18/2024 13:01:15 4.91 3.85-5.15 (M/uL) Final Hemoglobin 06/18/2024 13:01:15 15.3 12.0-15.3 (g/dL) Final HCT 06/18/2024 13:01:15 44.9 36.0-45.2 (%) Final MCV 06/18/2024 13:01:15 91.4 81.5-97.5 (fL) Final MCH 06/18/2024 13:01:15 31.2 27.0-34.0 (pg) Final MCHC 06/18/2024 13:01:15 34.1 32.0-36.0 (g/dL) Final RDW 06/18/2024 13:01:15 15.5 11.5-15.5 (%) Final Platelets 06/18/2024 13:01:15 249 140-400 (K /uL) Final MPV 06/18/2024 13:01:15 10.0 6.6-11.1 ( fL) Final Performing Location [facility] [place] [address]
--- OUTSIDE RECORDS SUMMARY | 2024-07-03 14:53 | External Medical Summary | Summary of Care ---
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 60 Tablet 1 06/18/2024 Active documented as of this encounter [...] 01/14/2024 Does the household have a re lar source of income? (Household - for ages [...] on file documented as of this encounter Progress Notes * Johnnie Arndt MD - 06/18/2024 1:50 PM EDT Blood workup done on 06/18/2024: -BUN/Creat: 7/1.0, Calcium 3.0, normal LFT other than bilirubin level of 1.7 -WBC 27423, Hemoglobin and hematocrit -15.3/44.9, Platelet count of 574230 Hypokalemia noted Would like to give her IV potassium 20 mEq x 1 dose along with IV fluid. Would like to start oral potassium 10 mEq twice a day. documented in this encounter Plan of Treatment Upcoming Encounters Date Type Department Care Team (Late st Contact Info) Description 06/21/2024 7:15 AM EDT Cardiac Studies Cardiac Studies, [facility] 132 [facility] [place] [address] 06/22/2024 8:45 AM EDT Imaging Radiology [facility] 1st [facility] 132 [facility] [place] [address] 06/30/2024 7:40 AM EDT Laboratory Laboratory [facility] [place] [address] [place] [phone] Nataliia, Lab [facility] 200 [facility] [place] [address] 06/30/2024 8:15 AM EDT Office Visit Hematology/Oncology [facility] [place] [address] [place] [phone] Johnnie Arndt MD [address] [place] [address] 06/30/2024 8:45 AM EDT Hem[facility] [address] [place] [phone] Nataliia, Chair 7 Hem Onc [facility] 200 [facility] [place] [address] Scheduled Procedures Name Priority Associated Diagnoses Date/Ti [...] this encounter Medical Devices Implanted Type Area Station Manager Device Identifier Shelf Expiration Date Model / Serial / Lot Port Implant W8f Poly Cath - [id number] Implanted:Qty : 1 on 03/31/2024 by Kesha Orlando MD at OR [facility] Right: Subclavian CR BARD : PERIPHERAL VASCULAR 02/26/2025 [id number] / / [id number] documented as of this encounter Visit Diagnoses Diagnosis 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 Question Answer Comments Discussion of Advance Directives occurred with: Patient Care Teams Excelsior Cutter Relationship Specialty Start Date End Date Nannette Rock DO [address] [place] [address] PCP - General Family Medicine 11/09/19 documented as of this encounter
--- OUTSIDE RECORDS SUMMARY | 2024-07-03 14:53 | External Medical Summary | Summary of Care ---
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) Procedures AR INJECTION, PERTUZUMAB, 1 MG AR INJ ONTRUZANT 10 MG AR INJECTION, UDENYCA 0.5 MG AR DOCETAXEL INJECTION Johnnie Arndt MD 200 [facility] [place] [address] Anc Hem/Onc [address] [address] Referral ID Status Reason Start Date Expiration Date V isits Requested Visits Authorized [id number] Authorized 03/31/2024 09/28/2099 999 [id number] Encounter Details Date Type Department Care Team (Latest Contact Info) Description 06/10/2024 1:15 PM EDT Immunization/ Injection Hematology/Oncology Treatment, [address] [phone] Nataliia, Chair 8 Hem Onc [address] [place] [address] Encounter for antineoplastic chemotherapy*; Malignant neoplasm of [...] as of this encounter (statuses as of 06/10/2024) Medications Medication Sig Dispensed Refills Start Date [...] for Cough. 90 Capsule 2 06/09/2024 Active documented as of this encounter (statuses as of 06/10/2024) Active Problems Problem Noted Date Diagnosed Date [...] as of this encounter (statuses as of 06/10/2024) Resolved Problems Problem Noted Date Diagnosed Date Resolved Date Varicella without complication 11/17/2018 11/17/2018 Allergic conjunctivitis, bilateral 11/17/2018 11/17/2018 Encounter for supervision of other normal 09/10/2006 11/17/2018 Overview: ICD-10 update of inactive term Hypothyroidism 10/29/2004 11/07/2017 Normal , first 04/07/200302/2007 Female infertility 07/07/2002 9 documented as of this encounter (statuses as of 06/10/2024) Immunizations Name Administration Dates Next Due COVID-19 [...] as of this encounter Nursing Notes * Jackie Pulido, MAGALY - 06/10/2024 2:57 PM EDT 1315: Pt arrived for Udencya injection. Administered in YVAN. Pt tolerated well. To return in 3 weeks. Discharged in stable condition. documented in this encounter Plan of Treatment Upcoming Encounters Date Type Department Care Team (Late st Contact Info) Description 06/21/2024 7:15 AM EDT Cardiac Studies Cardiac Studies, [facility] 132 [facility] [place] [address] 06/22/2024 8:45 AM EDT [facility] 132 [facility] [place] [address] 06/30/2024 7:40 AM EDT Laboratory Laboratory [facility] [place] 200 [facility] [place] [phone] Nataliia, Lab [address] [facility] [place] [address] 06/30/2024 8:15 AM EDT Office Visit Hematology/Oncology [facility] [place] [address] [place] [phone] Johnnie Arndt MD 200 [facility] [place] [address] 06/30/2024 8:45 AM EDT Hem/Onc Treatment Hematology/Oncology Treatment, [place] [address] [place] [phone] Nataliia, Chair 7 Hem Onc [address] [place] [address] Scheduled Procedures Name Priority Associated Diagnoses Date/Ti [...] this encounter Medical Devices Implanted Type Area Delivery And Mail Sorter Device Identifier Shelf Expiration Date Model / Serial / Lot Port Implant W8f Poly Cath - [id number] Implanted:Qty : 1 on 03/31/2024 by Kesha Orlando MD at OR [facility] Right: Subclavian CR BARD : PERIPHERAL VASCULAR 02/26/2025 [id number] / / [id number] documented as of this encounter Visit Diagnoses [...] mg 6 mg, Subcutaneous, ONCE, On Heena 06/10/24 at 1345, For 1 dose Given 06/10/2024 1:13 PM EDT 6 mg Arm R ight Upper documented in this encounter Advance Directives * Full Code (Latest Code Status on File) Date Activated Date Inactivated Comments 03/31/2024 12:17 PM 03/31/2024 7:50 PM This order re flects the patients wishes and were consensually agreed upon. Question Answer Comments Discussion of Advance Directives occurred with: Patient Care Teams Icu Tech Relationship Specialty Start Date End Date Nannette Rock DO [address] [place] [address] PCP - General Family Medicine 11/09/19 documented as of this encounter
--- OUTSIDE RECORDS SUMMARY | 2024-07-03 14:53 | External Medical Summary | Summary of Care ---
Author Name Unknown Organization [facility] Address [address] [facility] [place] [address] Phone [phone] Care Team Providers Care Truck And Transport Mechanic Name Role Phone Nannette Rock DO Primary Care Provider Reason for Visit * Reason Onset Date Comments Advice 06/14/2024 Arndt Encounter Details Date Type Department Care Team (Late st Contact Info) Description 06/14/2024 Refill Family Practice [facility] [place] [address] [place] [phone] Nannette Rock DO 200 [facility] [place] [address] Carcinoma of left breast metastatic to axillary [...] Encounter - Lili Lee RN - 06/14/2024 1:46 PM EDT Patient verbalized understanding of rx. * Telephone Encounter - Salty Arndt MD [...] recently 02/07/[address] Arndt: PABLO on neuropathy/ pain. Would you want to [...] 7:15 AM EDT Cardiac Studies Cardiac Studies, [facility] 132 [facility] [place] [address] 06/22/2024 8:45 AM EDT Imaging Radiology [facility] 1st [facility] 132 [facility] [place] [address] 06/30/2024 7:40 AM EDT Laboratory Laboratory [facility] [address] [place] [phone] Nataliia Lab [address] [facility] [place] [address] 06/30/2024 8:15 AM EDT Office Visit Hematology/Oncology [facility] [place] [address] [place] [phone] Salty Arndt MD [address] [facility] [place] [address] 06/30/2024 8:45 AM EDT Hem/Onc Treatment Hematology/Oncology Treatment, [place] [address] [place] [phone] Nataliia, Chair 7 Hem Onc [address] [place] [address] Scheduled Procedures Name Priority Associated Diagnoses Date/Ti [...] this encounter Medical Devices Implanted Type Area Financial Services Counselor Device Identifier Shelf Expiration Date Model / Serial / Lot Port Implant W8f Poly Cath - [id number] Implanted:Qty : 1 on 03/31/2024 by Kesha Orlando MD at OR [facility] Right: Subclavian CR BARD : PERIPHERAL VASCULAR 02/26/2025 [id number] / / [id number] documented as of this encounter Visit Diagnoses [...] Advance Directives occurred with: Patient Care Teams Truck And Transport Mechanic Relationship Specialty Start Date End Date Nannette Rock DO [address] [place] [address] PCP - General Family Medicine 11/09/19 documented as of this encounter
--- OUTSIDE RECORDS SUMMARY | 2024-07-03 14:53 | External Medical Summary | Summary of Care ---
Author Name Unknown Organization [facility] Address [address] [place] [address] Phone [phone] Care Team Providers Care Is Manager Name Role Phone Nannette Rock DO Primary Care Provider Reason for Visit * Reason Onset Date Comments Advice 06/18/2024 Dr. Arndt Encounter Details Date Type Department Care Team (Late st Contact Info) Description 06/18/2024 Telephone Hematology/Oncology [facility] [place] 200 [facility] [address] Services, Scheduling [address] [place] [address] Advice (Dr. Arndt ) Allergies Active Allergy [...] working as well for her since switching. She states that she has been throwing up liquid, has not been able to keep anything down. Feels very weak, but denies dizziness. Asked patient to come in for hydration- she states that she will be here around 12:30/ 12:45. Message sent [...] transfer to specialty Please contact pt at [phone]. Thank you. documented in this encounter Plan of Treatment Upcoming Encounters Date Type Department Care Team (Late st Contact Info) Description 06/18/2024 12:30 PM EDT Hem/Onc Treatment Hematology/Oncology Treatment, [place] [address] [place] [phone] Nataliia, Chair 2 Hem Onc [facility] 200 [facility] [place] [address] 06/21/2024 7:15 AM EDT Cardiac Studies Cardiac Studies, [address] [place] [address] 06/22/2024 8:45 AM EDT Imaging Radiology [facility] 1st [facility] 132 [facility] [place] [address] 06/30/2024 7:40 AM EDT Laboratory Laboratory [facility] Nataliia [place] [address] [place] [phone] Nataliia Lab [facility] [address] [place] [address] 06/30/2024 8:15 AM EDT Office Visit Hematology/Oncology [facility] [place] [address] [place] [phone] Johnnie Arndt MD [address] [place] [address] 06/30/2024 8:45 AM EDT Hem/Onc Treatment Hematology/Oncology Treatment, [place] [address] [place], [place] [phone] Nataliia, Chair 7 Hem Onc [address] [place], [place] [address] Scheduled Procedures Name Priority Associated Diagnoses Date/Ti [...] this encounter Medical Devices Implanted Type Area Hardware Trainer Device Identifier Shelf Expiration Date Model / Serial / Lot Port Implant W8f Poly Cath - [id number] Implanted:Qty : 1 on 03/31/2024 by Kesha Orlando MD at OR [facility] Right: Subclavian CR BARD : PERIPHERAL VASCULAR 02/26/2025 [id number] / / [id number] documented as of this encounter Advance Directives * Full Code (Latest Code Status on File) Date Activated Date Inactivated Comments 03/31/2024 12:17 PM 03/31/2024 7:50 PM This order re flects the patients wishes and were consensually agreed upon. Question Answer Comments Discussion of Advance Directives occurred with: Patient Care Teams Is Manager Relationship Specialty Start Date End Date Nannette Rock DO [address] [place] [address] PCP - General Family Medicine 11/09/19 documented as of this encounter
--- OUTSIDE RECORDS SUMMARY | 2024-07-03 14:53 | External Medical Summary | Summary of Care ---
Author Name Unknown Organization [facility] Address [address] [place] [address] Phone [phone] Care Team Providers Care Adult Crossing Guard Name Role Phone Nannette Rock DO Primary Care Provider Reason for Visit * Reason Onset Date Comments Advice 06/18/2024 Dr. Arndt Encounter Details Date Type Department Care Team (Late st Contact Info) Description 06/18/2024 Telephone Hematology/Oncology [facility] [place] 200 [facility] [address] Services, Scheduling [address] [place] [address] Advice (Dr. Arndt ) Allergies Active Allergy [...] encounter Miscellaneous Notes * Addendum Note - Salty Arndt MD [...] transfer to specialty Please contact pt at [phone]. Thank you. documented in this encounter Plan of Treatment Upcoming Encounters Date Type Department Care Team (Late st Contact Info) Description 06/18/2024 12:30 PM EDT Hem/Onc Treatment Hematology/Oncology Treatment, [place] [address] [place] [phone] Nataliia, Chair 2 Hem Onc [place] [address] [place] [address] 06/21/2024 7:15 AM EDT Cardiac Studies Cardiac Studies, [place] [facility] [place] 132 [facility] [place] [address] 06/22/2024 8:45 AM EDT Imaging Radiology [facility] 1st [facility] [place] [address] [place] [address] 06/30/2024 7:40 AM EDT Laboratory Laboratory [facility] [place] [address] [place] [phone] Nataliia, Lab [facility] 200 [facility] [place] [address] 06/30/2024 8:15 AM EDT Office Visit Hematology/Oncology [facility] [place] [address] [place] [phone] Salty Arndt MD 200 [facility] [place] [address] 06/30/2024 8:45 AM EDT Hem/Onc Treatment Hematology/Oncology Treatment, [place] [address] [place] [phone] Nataliia, Chair 7 Hem Onc [facility] 200 [facility] [place] [address] Scheduled Procedures Name Priority Associated Diagnoses Date/Ti [...] this encounter Medical Devices Implanted Type Area Forestry Biology Specialist Device Identifier Shelf Expiration Date Model / Serial / Lot Port Implant W8f Poly Cath - [id number] Implanted:Qty : 1 on 03/31/2024 by Kesha Orlando MD at OR [facility] Right: Subclavian CR BARD : PERIPHERAL VASCULAR 02/26/2025 [id number] / / [id number] documented as of this encounter Visit Diagnoses [...] Advance Directives occurred with: Patient Care Teams Adult Crossing Guard Relationship Specialty Start Date End Date Nannette Rock DO [address] [place] [address] PCP - General Family Medicine 11/09/19 documented as of this encounter
--- OUTSIDE RECORDS SUMMARY | 2024-07-03 14:54 | External Medical Summary ---
Author Name Unknown Address Unknown Organization [facility] [place] [address] Laboratory Report Ordering Provider Test Date Status SANDEE POND 06/09/2024 08:54:20 Final Observation Date Value Abnormality Reference (Units ) Status Screen, Urine 06/09/2024 08:54:20 Negative Negative Final Performing Location [facility] [place] [address]
--- OUTSIDE RECORDS SUMMARY | 2024-07-03 14:54 | External Medical Summary | Summary of Care ---
Author Name Unknown Organization [facility] Address [address] [place] [address] Phone [phone] Care Team Providers Care Site Foreman Name Role Phone Nannette Rock DO Primary Care Provider Reason for Visit * Reason Onset Date Comments Encounter Created in Error 03/09/2024 Encounter Details Date Type Department Care Team (Late st Contact Info) Description 03/09/[address] [facility] [address] [facility] [place] [phone] Luis Antonio Estrella PA-C [address] [place] [address] Encounter Created in Error Allergies Active Allergy Reactions Criticality Noted Date Comments Amoxicillin 10/23/2001 hives Dust 01/28/2023 Other Allergy (See Comments) Rash Low 01/25/2020 Adhesive Sensitive Oxycodone-Acetaminophe n Other (Please comment) 04/22/2011 Chest pain and shortness of breath documented as of this encounter (statuses as of 06/08/2024) Medications Medication Sig Dispensed Refills Start Date End Date Status Multivitamin Women 50+ Oral Tablet Take by mouth. Activ e Ciprofloxacin HCl 500 MG Oral Tablet (Cipro) Take 1 Tablet by mouth in the morning and 1 Tablet before bedtime. 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 90 Tablet 3 03/02/2024 Active Additional Information Patient not taking.Reported on 03/24/2024 documented as of this encounter (statuses as of 06/08/2024) Active Problems Problem Noted Date Diagnosed Date [...] as of this encounter (statuses as of 06/08/2024) Resolved Problems Problem Noted Date Diagnosed Date Resolved Date Varicella without complication 11/17/2018 11/17/2018 Allergic conjunctivitis, bilateral 11/17/2018 11/17/2018 Encounter for supervision of other normal 09/10/2006 11/17/2018 Overview: ICD-10 update of inactive term Hypothyroidism 10/29/2004 11/07/2017 Normal , first 04/07/2003 02/0 02/2007 Female infertility 07/07/2002 9 documented as of this encounter (statuses as of 06/08/2024) Immunizations Name Administration Dates Next Due COVID-19 [...] Care Team (Late st Contact Info) Description 06/09/2024 8:40 AM EDT Laboratory Laboratory [facility] [address] [place] [phone] Nataliia, Lab [address] [facility] [place] [address] 06/09/2024 9:45 AM EDT Office Visit Hematology/Oncology [facility] [address] [place] [address] Johnnie Arndt MD [address] [place] [address] [place] [address] 06/09/2024 10:15 AM EDT [facility] [address] [facility] [place] [phone] Nataliia, Chair 6 Hem Onc [address] [place] [address] Scheduled Procedures Name Priority Associated Diagnoses Date/Ti [...] 01/13/2027 01/14/2024, 11/27, 12/14/2019, Additional history exists Diabetes Screening 05/19/2027 05/19/2024, 0 04/28/2024, 04/13/2024, Additional history exists Lipid Panel 05/29/2027 05/29/2022, [...] this encounter Medical Devices Implanted Type Area Tube Wrapper Device Identifier Shelf Expiration Date Model / Serial / Lot Port Implant W8f Poly Cath - [id number] Implanted:Qty : 1 on 03/31/2024 by Kesha Orlando MD at OR [facility] Right: Subclavian CR BARD : PERIPHERAL VASCULAR 02/26/2025 [id number] / / [id number] documented as of this encounter Advance Directives * Full Code (Latest Code Status on File) Date Activated Date Inactivated Comments 03/31/2024 12:17 PM 03/31/2024 7:50 PM This order re flects the patients wishes and were consensually agreed upon. Question Answer Comments Discussion of Advance Directives occurred with: Patient Care Teams Site Foreman Relationship Specialty Start Date End Date Nannette Rock DO [address] [place], [place] [phone] PCP - General Family Medicine 11/09/19 documented as of this encounter
--- OUTSIDE RECORDS SUMMARY | 2024-07-03 14:54 | External Medical Summary | Summary of Care ---
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) Encounter for long-term (current) drug use Procedures ECHO, COMPLETE (2D), TRANS-THORACIC Johnnie Arndt MD [address] [place] [address] Referral ID Status Reason Start Date Expiration Date Visits Requested Visits Authorized [id number] Pending Review Precert 06/09/2024 999 999 * Precert (Within 10 days (routine)) - Pending Review Specialty Diagnoses / Procedures Referred By Controsi cedeno Referred To Contact Radiology Diagnoses Malignant neoplasm of upper-outer quadrant of left breast in female, 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) Metastasis to bone (HCC) 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) Procedures PET CT SKULL BASE TO MID-THIGH FDG Johnnie Arndt MD [address] [place] [address] Referral ID Status Reason Start Date Expiration Date V isits Requested Visits Authorized [id number] Pending Review 06/09/2024 999 999 Reason for Visit * Reason Comments Follow Up Treatment Encounter Details Date Type Department Care Team (Late st Contact Info) Description 06/09/2024 9:45 AM EDT Office Visit Hematology/Oncology [facility] [place] [address] [facility] [place] [phone] Johnnie Arndt MD [address] [facility] [place] [address] Malignant neoplasm of upper-outer quadrant of left breast in female, estrogen receptor positive (HCC)*; Metastasis to brain (HCC); Metastasis to bone (HCC); 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); Encounter for long-term (current) drug use; Acute cough Allergies Active Allergy Reactions Criticality Noted Date Comments Amoxicillin 10/23/2001 hives Dust 01/28/2023 Other Allergy (See Comments) Rash Low 01/25/2020 Adhesive Sensitive Oxycodone-Acetaminophe n Other (Please comment) 04/22/2011 Chest pain and shortness of breath documented as of this encounter (statuses as of 06/09/2024) Medications Medication Sig Dispensed Refills Start Date [...] as of this encounter (statuses as of 06/09/2024) Active Problems Problem Noted Date Diagnosed Date [...] as of this encounter (statuses as of 06/09/2024) Resolved Problems Problem Noted Date Diagnosed Date Resolved Date Varicella without complication 11/17/2018 11/17/2018 Allergic conjunctivitis, bilateral 11/17/2018 11/17/2018 Encounter for supervision of other normal 09/10/2006 11/17/2018 Overview: ICD-10 update of inactive term Hypothyroidism 10/29/2004 11/07/2017 Normal , first 04/07/2003/0 02/2007 Female infertility 07/07/2002 9 documented as of this encounter (statuses as of 06/09/2024) Immunizations Name Administration Dates Next Due COVID-19 [...] Sign Reading Time Taken Comments Blood Pressure 118/79 06/09/2024 9:34 AM EDT Pulse 98 06/09/2024 9:34 AM EDT Temperature 36.3 C (97.4 F) 06/09/2024 9:34 AM ED T Respiratory Rate - - Oxygen Saturation 94% 06/09/2024 9:34 AM EDT Inhaled Oxygen Concentration - - Weight 91.2 kg (201 lb) 06/09/2024 9:34 AM EDT Height - - Body Mass Index 31.48 03/31/2024 12:27 PM EDT documented in this encounter Progress Notes * Johnnie Arndt MD - 06/09/2024 9:45 AM EDT Hematology/Oncology Outpatient Clinic note [place] Piffard [address] [place] [address] Name: Tiffanie Leon Date: 05/19/2024 CHIEF COMPLAINT: Tiffanie Leon is a 49 year old female patient here today for f/u visit HEMATOLOGY/ONCOLOGY DIAGNOSIS: 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 -Her2/Ashu could not be assessed on micro invasion. Genetic Clinic evaluation --> negative for 9 known mutations. While on tamoxifen of 4 yrs , noticed to have recurrent disease involving the left axilla, multiplebones, hormonal positive, HER2 Ashu positive. (February 2024) Brain metastasis, left parietal lobe (04/08/2024). Completed SBRT to brain lesions on 06/07/2024 at [facility]. DATE OF DIAGNOSIS: 01/03/20 TREATMENT HISTORY: She [...] calcification lesion --> high-grade DCIS. -ER and UT receptor strongly positive in 100 malignamt cells. [...] -ER moderately positive in 50% malignamt cells, UT moderately positive 50 % malignamt cells. Bilateral [...] has come the clinic for the follow-up, currently she receiving Taxotere, trastuzumab and pertuzumab chemotherapy, so far received 3 cycles, today she is here for cycle # 4. She did receive prophylactic Pegfilgrastim. Overall she has done well, no nausea no vomiting, no new GI symptoms, some diarrhea present, she takes Lomotil and Imodium as needed for the symptomatic treatment, current weight around 200 lb, no increasing headache. No fever. She completed radiation treatment to the brain lesion, no increasing headache. She is not on steroid therapy. Past Medical History: Diagnosis Date Breast cancer (HCC) 2019 Left DCIS Hemangioma of skin SEVERE, FACIAL Hypothyroidism Hypothyroidism Varicella without complication Past Surgical History: Procedure Laterality Date BX LYMPH NODE DEEP AXIL Left 02/09/2020 BIOPSY LYMPH NODE DEEP AXILLARY OPEN performed by Kesha Orlando MD at OR [facility] COLONOSCOPY, DIAGNOSTIC (RECTUM) 08/07/2022 diverticulosis, repeat 10 yrs / COLONOSCOPY FLEXIBLE PROXIMAL DIAGNOSTIC performed by Mikhail Ray MD at ENDOSCOPY [facility] EGD, FLEXIBLE, DIAGNOSTIC 08/03/2016 severe esophagitis, HH, food impaction/[facility] EGD, W/ENDOSCOPIC US 05/30/2011 IDENTIFY SENTINEL NODE, RADIOACTIVE TRACER Left 02/09/2020 INJECTION PROCEDURE FOR IDENTIFICATION SENTINEL NODE performed by Kesha Orlando MD at [facility] INFORMATION EYE - L "lazy eye" INFORMATION EAR - R 'Pocke ot air" INFORMATION FACIAL HEMANGIOMAS INSER TUNN ACC DEV;5 YRS/OLDER Right 03/31/2024 INSERT TUNNELED CENTRAL VENOUS ACCESS WITH SUBQ PORT performed by Kesha Orlando MD at [facility] LAPAROSCOPY; CHOLECYSTECTOMY 07/30/2007 at [facility] - Dr. Phillips MAMMOGRAM BREAST NEEDLE BIOPSY CORE LEFT Left 01/03/2020 Site 1:high grade DCIS site 2:Atypical lobular hyperplasia MASTECTOMY, PARTIAL Left 02/09/2020 MASTECTOMY PARTIAL performed by Kesha Orlando MD at [facility] OTHER 04/22/2022 Ortho: left plantar release and spur removal, etc UT LITHOTRIPSY XTRCORP SHOCK WAVE 2023 RADIATION THERAPY Left 03/2020 5130 cGy REMOVAL OF KIDNEY CYST 2023 VAGINAL DELIVERY ONLY times 2 Social History Socioeconomic History Marital status: Spouse name: Not on file Number of children: Not on file Years of education: Not on file Highest education level: Not on file Occupational History 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 60 Tablet 11 No current facility-administered medications for this visit. REVIEW OF SYSTEMS: See HPI - otherwise negative OBJECTIVE: BP 118/79 (BP Site: Right Arm, BP Position: Sitting, BP Cuff Size: Large) | Pulse 98 | Temp 36.3 C (97.4 F) (Tympanic) | Wt 91.2 kg (201 lb) | SpO2 94% | BMI 31.48 kg/m | BSA 2.08 m PHYSICAL EXAM: ECOG: Performance Status 0 = [...] Grossly intact LABS: Blood workup done on 06/09/2024: -WBC 26003, Hemoglobin and hematocrit -13.8/42, Platelet count of 664434 -BUN/Creat:12/0.8, Calcium 9.7 -bilirubin level 1.7. -direct bilirubin--> 0.2. Brain MRI done on 04/08/2024: - Well circumcised size enhancing mass within the left parietal lobe measuring 1.5 x 1 cm with mildsurrounding edema without significant mass effect. - Area of vague non-mass enhancement within the left Sidney inferior frontal lobe and left posterior temporal lobe which is favored as a benign microstructure but follow-up imaging study is advised. 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 -Brain metastasis. Now she has recurrent disease involving left axilla, multiple bones, reviewed with her regarding the PET-CT scan findings, breast MRI findings, pathological findings from the left axilla lymph node, she has hormonal positive, HER2 Ashu positive breast cancer. Regarding left parietal lobe lesion, she completed radiation therapy to that area at [facility]. They are planning to repeat brain MRI in about 3 months' time. Reviewed her blood workup done today, overall stable blood workup noted, tolerated chemotherapy well without significant side other than some diarrhea. Will proceed with 4th cycle of chemotherapy with Taxotere, Trastuzumab and pertuzumab as we planned. She will receive prophylactic Pegfilgrastim to prevent febrile neutropenia. I am planning for follow-up PET-CT scan before the next cycle in about 2 weeks' time. I am also planning for follow-up echocardiogram. ( early June 2024) She will have a dental extraction somewhere in last week of June 2024 and then will start Xgeva in her case. She will continue with Lomotil and Imodium for the symptomatic treatment of diarrhea. RTC in [address] Johnnie Arndt Hem/Onc (This note was [...] Notes * Jackie Burroughs MED ASSIST - 06/09/2024 9:35 AM EDT Patient identifed by name and [...] can activate it for you? ALREADY ACTIVE Filed Vitals: 06/09/24 0934 BP: 118/79 Pulse: 98 Temp: 36.3 C (97.4 F) TempSrc: Tympanic SpO2: 94% Weight: 91.2 kg (201 lb) Patient was instructed to not get up on the exam table/exam chair until directed and assisted by their provider; patient is to remain seated in the chair/ wheelchair/ exam table/ exam chair for fall prevention and safety reasons. Patient is aware to have assistance to step down off exam table/exam chair with personnel. Patient voiced full comprehension of instructions. documented in this encounter Plan of Treatment Upcoming Encounters Date Type Department Care Team (Late st Contact Info) Description 06/10/2024 1:15 PM EDT Immunization/Injectio n Hematology/Oncology Treatment, [place] [address] [facility] [phone] Nataliia, Chair 8 Hem Onc [facility] [address] [facility] [place] [address] 06/22/2024 8:45 AM EDT Imaging Radiology [address], [place] [facility] [address] 06/30/2024 7:40 AM EDT Laboratory Laboratory [facility] [place] [address] [facility] [place] [phone] Nataliia, Lab [facility] [address] [facility] [place] [address] 06/30/2024 8:15 AM EDT Office Visit Hematology/Oncology [facility] [place] [address] [facility] [place] [phone] Johnnie Arndt MD [address] [facility] [place] [address] 06/30/2024 8:45 AM EDT Hem/Onc Treatment Hematology/Oncology Treatment, [place] [address] [facility] [phone] Nataliia, Chair 7 Hem Onc [address] [place] [address] Scheduled Orders Name Type Priority Associated Diagnoses Orde r Schedule PET CT SKULL BASE TO MID-THIGH FDG Medical Imaging Routine Malignant neoplasm of upper-outer quadrant of left breast in female, 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) Metastasis to bone (HCC) 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) Ordered: 06/09/2024 ECHO, COMPLETE (2D), TRANS-THORACIC Echocardiology Routine Malignant neoplasm of upper-outer quadrant of left breast in female, 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) Metastasis to bone (HCC) 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) Encounter for long-term (current) drug use Expected: 06/09/2024 (Approximate), Expires: 07/09/2026 Scheduled Procedures Name Priority Associated Diagnoses Date/Ti [...] this encounter Medical Devices Implanted Type Area Powder Coater Device Identifier Shelf Expiration Date Model / Serial / Lot Port Implant W8f Poly Cath - [id number] Implanted:Qty : 1 on 03/31/2024 by Kesha Orlando MD at OR [facility] Right: Subclavian CR BARD : PERIPHERAL VASCULAR 02/26/2025 [id number] / / [id number] documented as of this encounter Results * BILIRUBIN, DIRECT (06/09/2024 8:58 AM EDT) Bilirubin, Direct 0.2 0.0 - 0.3 mg/dL 06/09/2024 12:02 PM EDT [facility] 56-02 Blood Venous blood specimen / Unknown Venipuncture / Unknown 06/09/2024 8:58 AM EDT 06/09/2024 8:49 AM EDT Johnnie Arndt MD LAB BLOOD ORDERABLES [facility] 56-02 [address] [facility] [place] [address] documented in this encounter Visit Diagnoses Diagnosis Malignant neoplasm of upper-outer quadrant of left breast in female, estrogen receptor positive (HCC)- Primary 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 Question Answer Comments Discussion of Advance Directives occurred with: Patient Care Teams Assembler Ping Pong Table Relationship Specialty Start Date End Date Nannette Rock DO [address] [facility] [address] PCP - General Family Medicine 11/09/19 documented as of this encounter
--- OUTSIDE RECORDS SUMMARY | 2024-07-03 14:54 | External Medical Summary | Summary of Care ---
Author Name Unknown Organization [facility] Address [address] [place] [facility] [place] [address] Phone [phone] Care Team Providers Care Gas Fitter Helper Name Role Phone Nannette Rock DO Primary Care Provider Reason for Visit * Reason Comments Outpatient Testing Encounter Details Date Type Department Care Team (Late st Contact Info) Description 06/09/2024 8:40 AM EDT Laboratory [facility] [place] [address] [place] [phone] [place], Lab [place] [address] [place] [address] Malignant neoplasm of upper-outer quadrant of left [...] before bedtime. 60 Tablet 11 05/24/2024 Active documented as of this encounter (statuses [...] 06/09/2024 9:45 AM EDT Office Visit Hematology/Oncology [address] [place] [phone] Johnnie Arndt MD 200 [facility] [place] [address] 06/09/2024 10:15 AM EDT Hem/Onc Treatment Hematology/[address]cology [address], [address] [phone] Nataliia, Chair 6 Hem Onc [address] [place] [address] Pending Results Name Type Priority Associated Diagnoses Date /Time CBC WITH WBC DIFFERENTIAL Lab STAT Malignant neoplasm of upper-outer quadrant of left breast in female, estrogen receptor positive (HCC) 06/09/2024 8:49 AM EDT COMPREHENSIVE METABOLIC PANEL Lab STAT Malignant neoplasm of upper-outer quadrant of left breast in female, estrogen receptor positive (HCC) 06/09/2024 8:49 AM EDT CBC Lab STAT Malignant neoplasm of upper-outer quadrant of left breast in female, estrogen receptor positive (HCC) 06/09/2024 8:49 AM EDT DIFFERENTIAL, AUTOMATED Lab STAT Malignant neoplasm of upper-outer quadrant of left breast in female, estrogen receptor positive (HCC) 06/09/2024 8:49 AM EDT HCG QUALITATIVE, URINE Lab STAT Malignant neoplasm of upper-outer quadrant of left breast in female, estrogen receptor positive (HCC) 06/09/2024 8:54 AM EDT Scheduled Procedures Name Priority Associated [...] this encounter Medical Devices Implanted Type Area Urology Surgeon Device Identifier Shelf Expiration Date Model / Serial / Lot Port Implant W8f Poly Cath - [id number] Implanted:Qty : 1 on 03/31/2024 by Kesha Orlando MD at OR [facility] Right: Subclavian CR BARD : PERIPHERAL VASCULAR 02/26/2025 [id number] / / [id number] documented as of this encounter Visit Diagnoses [...] Advance Directives occurred with: Patient Care Teams Gas Fitter Helper Relationship Specialty Start Date End Date Nannette Rock DO [address] [place] [address] PCP - General Family Medicine 11/09/19 documented as of this encounter
--- OUTSIDE RECORDS SUMMARY | 2024-07-03 14:54 | External Medical Summary ---
Author Name Unknown Address Unknown Organization K09[facility] [place] [address] Laboratory Report Ordering Provider Test Date Status SANDEE POND 06/09/2024 08:58:22 Final Observation Date Value Abnormality Reference (Units ) Status WBC, Total 06/09/2024 08:58:22 10.85 Above high normal 4 .00-10.80 (K/uL) Final RBC 06/09/2024 08:58:22 4.49 3.85-5.15 (M/uL) Final Hemoglobin 06/09/2024 08:58:22 13.8 12.0-15.3 (g/dL) Final HCT 06/09/2024 08:58:22 42.1 36.0-45.2 (%) Final MCV 06/09/2024 08:58:22 93.8 81.5-97.5 (fL) Final MCH 06/09/2024 08:58:22 30.7 27.0-34.0 (pg) Final MCHC 06/09/2024 08:58:22 32.8 32.0-36.0 (g/dL) Final RDW 06/09/2024 08:58:22 15.3 11.5-15.5 (%) Final Platelets 06/09/2024 08:58:22 338 140-400 (K /uL) Final MPV 06/09/2024 08:58:22 9.5 6.6-11.1 ( fL) Final Performing Location [facility] [place] [address]
--- OUTSIDE RECORDS SUMMARY | 2024-07-03 14:54 | External Medical Summary | Summary of Care ---
Author Name Unknown Organization [facility] Address [address] [facility] [place] [address] Phone [phone] Care Team Providers Care Bran Mixer Name Role Phone Nannette Rock DO Primary Care Provider Reason for Visit * Reason Comments Outpatient Testing Encounter Details Date Type Department Care Team (Late st Contact Info) Description 06/09/2024 8:40 AM EDT Laboratory Laboratory [facility] Nataliia [place] [address] [place] [address] [place], [address] Scenery [address] [place] [address] Malignant neoplasm of upper-outer quadrant of left [...] 06/09/2024 9:45 AM EDT Office Visit Hematology/Oncology [address] [place] [phone] Johnnie Arndt MD [address] [place] [address] [place] [address] 06/09/2024 10:15 AM EDT Hem/Onc Treatment Hematology/Oncology [address], [address] [phone] Nataliia, Chair 6 Hem Onc [address] [place] [address] Arrived Pending Results Name Type Priority Associated Diagnoses Date /Time COMPREHENSIVE METABOLIC PANEL Lab STAT Malignant neoplasm of upper-outer quadrant of left breast in female, estrogen receptor positive (HCC) 06/09/2024 8:58 AM EDT HCG QUALITATIVE, URINE Lab STAT [...] this encounter Medical Devices Implanted Type Area Lunchroom Operator Device Identifier Shelf Expiration Date Model / Serial / Lot Port Implant W8f Poly Cath - [id number] Implanted:Qty : 1 on 03/31/2024 by Kesha Orlando MD at OR [facility] Right: Subclavian CR BARD : PERIPHERAL VASCULAR 02/26/2025 [id number] / / [id number] documented as of this encounter Procedures Procedure Name Priority Date/Time Associated Diagnosis Comments DIFFERENTIAL, AUTOMATED STAT 06/09/2024 8:58 AM EDT Malignant neoplasm of upper-outer quadrant of left breast in female, estrogen receptor positive (HCC) CBC STAT 06/09/2024 8:58 AM EDT Malignant neoplasm of upper-outer quadrant of left breast in female, estrogen receptor positive (HCC) CBC STAT 06/09/2024 8:58 AM EDT Malignant neoplasm of upper-outer quadrant of left breast in female, estrogen receptor positive (HCC) documented in this encounter Results * (ABNORMAL) DIFFERENTIAL, AUTOMATED (06/09/2024 8:58 AM EDT) WBC 10.85(H) 4.00 - 10.80 K/uL 06/09/2024 9:01 AM EDT [facility]02 Neutrophils % 87.6(H) 40.0 - 75.0 % 06/09/2024 9:01 AM EDT [facility]02 Lymphocytes % 9.7(L) 18.0 - 42.0 % 06/09/2024 9:01 AM EDT [facility]02 Monocytes % 2.2 1.0 - 11.0 % 06/09/2024 9:01 AM EDT [facility]02 Eosinophils % 0.0 0.0 - 6.0 % 06/09/2024 9:01 AM EDT [facility]02 Basophils % 0.5 0.0 - 2.0 % 06/09/2024 9:01 AM EDT [facility]02 Absolute Neutrophils 9.51(H) 1.80 - 7.70 K/uL 06/09/2024 9:01 AM EDT [facility]02 Absolute Lymphocytes 1.05 1.00 - 4.80 K/ul 06/09/2024 9:01 AM EDT [facility]02 Absolute Monocytes 0.24 0.00 - 1.10 K/uL 06/09/2024 9:01 AM EDT [facility]02 Absolute Eosinophils 0.00 0.00 - 0.70 K/uL 06/09/2024 9:01 AM EDT [facility] 56- Absolute Basophils 0.05 0.00 - 0.20 K/uL 06/09/2024 9:01 AM EDT [facility] 56 Blood Venous blood specimen / Unknown Venipuncture / Unknown 06/09/2024 8:58 AM EDT 06/09/2024 8:49 AM EDT Johnnie Arndt MD LAB BLOOD ORDERABLES [facility] [address] [place] [address] * (ABNORMAL) CBC (06/09/2024 8:58 AM EDT) WBC 10.85(H) 4.00 - 10.80 K/uL 06/09/2024 9:01 AM EDT [address] RBC 4.49 3.85 - 5.15 M/uL 06/09/2024 9:01 AM EDT [address] HGB 13.8 12.0 - 15.3 g/dL 06/09/2024 9:01 AM EDT [address] HCT 42.1 36.0 - 45.2 % 06/09/2024 9:01 AM EDT [facility] 56 MCV 93.8 81.5 - 97.5 fL 06/09/2024 9:01 AM EDT [facility] 56 MCH 30.7 27.0 - 34.0 pg 06/09/2024 9:01 AM EDT [facility] 56 MCHC 32.8 32.0 - 36.0 g/dL 06/09/2024 9:01 AM EDT [facility] 56 RDW 15.3 11.5 - 15.5 % 06/09/2024 9:01 AM EDT [facility] 56 PLT 338 140 - 400 K/uL 06/09/2024 9:01 AM EDT [facility] 56 MPV 9.5 6.6 - 11.1 fL 06/09/2024 9:01 AM EDT [facility] 56-02 Blood Venous blood specimen / Unknown Venipuncture / Unknown 06/09/2024 8:58 AM EDT 06/09/2024 8:49 AM EDT Johnnie Arndt MD LAB BLOOD ORDERABLES [facility] 56-02 [address] [facility] [address] documented in this encounter Visit Diagnoses Diagnosis [...] Advance Directives occurred with: Patient Care Teams Bran Mixer Relationship Specialty Start Date End Date Nannette Rock DO [address] [facility] [address] PCP - General Family Medicine 11/09/19 documented as of this encounter
--- OUTSIDE RECORDS SUMMARY | 2024-07-03 14:54 | External Medical Summary ---
Author Name Unknown Address Unknown Organization [facility]-02 - [address] [place] [address] Laboratory Report Ordering Provider Test Date Status SANDEE POND 06/09/2024 08:58:12 Final Observation Date Value Abnormality Reference (Units ) Status BUN 06/09/2024 08:58:12 12 6-20 (mg/dL) Final Creatinine 06/09/2024 08:58:12 0.8 0.5-1.0 (mg/dL) Final Glomerular filtration rate/1.73 sq M.predicted [Volume Rate/Area] in Serum, Plasma or Blood by Creatinine-based formula (CKD-EPI) 06/09/2024 08:58:12 89 >=60 (mL/min) Final eGFR is calculated based on the CKD-EPI 2020 equation. Sodium 06/09/2024 08:58:12 138 135-146 (m mol/L) Final Potassium 06/09/2024 08:58:12 4.2 3.5-5.1 (m mol/L) Final Cl 06/09/2024 08:58:12 104 98-107 (mm ol/L) Final CO2 06/09/2024 08:58:12 22 22-32 (mmo l/L) Final Anion gap 06/09/2024 08:58:12 12 7-15 (mmol /L) Final Glucose 06/09/2024 08:58:12 222 Above high normal 70 -120 (mg/dL) Final Albumin 06/09/2024 08:58:12 4.2 3.8-5.0 (g /dL) Final AST (Aspartate aminotransferase) 06/09/2024 08:58:12 23 10-35 (U/L) Fin al Alk Phos 06/09/2024 08:58:12 73 35-130 (U/ L) Final Bilirubin, Total 06/09/2024 08:58:12 1.7 Above high no rmal <=1.2 (mg/dL) Final Calcium 06/09/2024 08:58:12 9.7 8.4-10.2 ( mg/dL) Final Protein 06/09/2024 08:58:12 6.9 6.0-8.3 (g /dL) Final ALT (Alanine aminotransferase) 06/09/2024 08:58:12 38 Above high normal 10-35 (U/L) Final Performing Location [facility] 56 [address] [place] [address]
--- OUTSIDE RECORDS SUMMARY | 2024-07-03 14:54 | External Medical Summary ---
Author Name Unknown Address Unknown Organization [facility] [place] [address] Laboratory Report Ordering Provider Test Date Status SANDEE POND 06/09/2024 08:58:22 Final Observation Date Value Abnormality Reference (Units ) Status SYNC LEUKOCYTES IN BLOOD BY AUTOMATED COUNT 06/09/2024 08:58:22 10.85 Above high normal 4.00-10.80 (K/uL) Final Segs 06/09/2024 08:58:22 87.6 Above high normal 40.0-75.0 (%) Final Lymphs % 06/09/2024 08:58:22 9.7 Below low normal 18.0-42.0 (%) Final Monos 06/09/2024 08:58:22 2.2 1.0-11.0 (%) Final Eosinophils 06/09/2024 08:58:22 0.0 0.0-6.0 (%) Final Basos 06/09/2024 08:58:22 0.5 0.0-2.0 (%) Final Absolute Segs 06/09/2024 08:58:22 9.51 Above high normal 1.80-7.70 (K/uL) Final Lymphs, absolute 06/09/2024 08:58:22 1.05 1.00-4.80 (K/ul) Final Monos, Abs 06/09/2024 08:58:22 0.24 0.00-1.10 (K/uL) Final Eos, Abs 06/09/2024 08:58:22 0.00 0.00-0.70 (K/uL) Final Basos, Abs 06/09/2024 08:58:22 0.05 0.00-0.20 (K/uL) Final Performing Location [facility] [place] [address]
--- OUTSIDE RECORDS SUMMARY | 2024-07-03 14:54 | External Medical Summary | Summary of Care ---
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) Procedures [place] INJECTION, PERTUZUMAB, 1 MG W[place] INJ ONTRUZANT 10 MG W[place] INJECTION, UDENYCA 0.5 MG W[place] DOCETAXEL INJECTION Johnnie Arndt MD [address] [place] [id number] Anc Hem/Onc [address] [address] Referral ID Status Reason Start Date Expiration Date V isits Requested Visits Authorized [id number] Authorized 03/31/2024 09/28/2099 999 99 Encounter Details Date Type Department Care Team (Latest Contact Info) Description 06/09/2024 10:15 AM EDT Hem/Onc Treatment Hematology/Oncolog y Treatment, [address] [phone] Nataliia, Chair 6 Hem Onc [address] [place] [address] Encounter for antineoplastic chemotherapy*; Malignant neoplasm of [...] No 01/14/2024 Does the household have a scheurer hospitalr source of income? (Household - for [...] on file Are you (or your family) kendlal eless or worried that you might be [...] as of this encounter Nursing Notes * Solitario Howard RN - 06/09/2024 1:41 PM EDT Treatment completed without issues. Pt VAD flushed by Carli Singh LPN with NSS/Heparin per orders, positive blood return noted. VAD access removed by this RN. Pt ambulated from treatment room in stable condition. Goals: Pt will remain free from injury. Possible barriers to meeting goals: IV Chemotherapy Stability of the patient: Moderately stable - low risk of patient condition declining or worsening Summary regarding today's goals: Met: Pt remained free from injury. * Solitario Howard RN - 06/09/2024 10:24 AM EDT Chair 2. VAD accessed without issues, positive blood return noted. Fluids infusing per orders. Pretreatment medications given. Safety and Risk for Injury Patient will remain free from injury. Ensure appropriate safety devices are available. Provide and maintain safe environment. Patient instructed on use of heat and massage functions where applicable. Patient shown how to operate the heat function of the chair and to alert nursing staff if the chair feels too warm. Patient instructed on the risk of potential gutiérrez while using the heat function. Chemotherapy/Immunotherapy agents: THP Consent for chemotherapy drug treatment complete, dated, and signed? yes, date - 03/31/24 Treatment lab parameters met? Yes Has treatment weight changed > than 10%? No Treatment preauthorized? Yes VITALS Filed Vitals: Urine protein: N/A Patient education completed for treatment? Yes Blood transfusion consent signed and complete? NA Return appointment scheduled? Yes Patient had provider visit today? Yes - Ok to release order and treat per provider Functional Status: Functional status at today's visit: [...] 1:15 PM EDT Immunization/Injectio n Hematology/Oncology [facility], [place] [facility] [phone] Nataliia Chair 8 Hem [facility] Scene [address] [facility] [address] 06/22/2024 8:45 AM EDT Imaging Radiology [facility], [place] [address] [place] [address] 06/30/2024 7:40 AM EDT Laboratory Laboratory [facility] [place] [address] [place] [phone] Nataliia Lab Scenery [address] [facility] [place] [address] 06/30/2024 8:15 AM EDT Office Visit Hematology/Oncology [facility] [place] [address] [place] [phone] Johnnie Arndt MD [address] [place] [address] 06/30/2024 8:45 AM EDT Hem/Onc Treatment Hematology/Oncology Treatment, [place] [address] [place] [phone] Nataliia, Chair 7 Hem Onc [facility] [address] [facility] [place] [address] Scheduled Procedures Name Priority Associated Diagnoses Date/Ti [...] this encounter Medical Devices Implanted Type Area Glass Beveller Device Identifier Shelf Expiration Date Model / Serial / Lot Port Implant W8f Poly Cath - [id number] Implanted:Qty : 1 on 03/31/2024 by Kesha Orlando MD at OR [facility] Right: Subclavian CR BARD : PERIPHERAL VASCULAR 02/26/2025 [id number] / / [id number] documented as of this encounter Visit Diagnoses [...] ONCE PRN Other, Hypersensitivity Reaction, Starting on Fri06/09/24 at 1002, Until Fri06/10/24 at 1001, For 24 hours EPINEPHrine 1 MG/ML inj 0.3 mg 0.3 mg, Intramuscular, ONCE PRN Other, Hypersensitivity Reaction or Anaphylaxis, Starting on Fri06/09/24 at 1002, Until Heena 06/10/24 at 1001, For 24 hours hEParin 100 UNIT/ML Lock Flush inj 500 Units 500 Units (5 mL), IV Lock, PRN Other, IV Flush, Starting on Fri06/09/24 at 1002, Until Heena 06/10/24 at 1001, For 24 hours, Do not flush if lock, PICC, or central line not in place; IV infusing or unable to flush. Given 06/09/2024 1:07 PM EDT 500 Units Hydrocortisone Sod Suc (PF) (Solu-Cortef) inj 100 mg 100 mg, IV Push, ONCE PRN Other, Hypersensitivity Reaction, Starting on Fri06/09/24 at 1002, Until Heena 06/10/24 at 1001, For 24 hours LORAzepam (Ativan) tab 0.5 mg 0.5 mg, Oral, ONCE PRN Anxiety, Nausea, Starting on Fri06/09/24 at 1115, Until Discontinued NSS infusion Intravenous, at 50 mL/hr, PRN, Starting on Fri06/09/24 at 1115, Until Discontinued, Maintenance line Start Infusion 06/09/2024 10:16 AM EDT 50 mL/hr oxygen GAS Inhalation, OXYGEN, First dose on Fri06/09/24 at 1045, Until Discontinued, Device/Managed by: Low Flow Device, [...] Push, PRN Other, IV Flush, Starting on Fri06/09/24 at 1002, Until Heena 06/10/24 at 1001, For 24 hours, Do not flush if lock, PICC, or central line not in place; IV infusing or unable to flush. Given 06/09/2024 1:06 PM EDT 10 mL Inactive Administered Medications - up to 3 most recent administrations Medication Order MAR Action Action Date Dose Rate Site Acetaminophen (Tylenol) tab 650 mg 650 mg, Oral, ONCE, On Fri06/09/24 at 1115, For 1 dose, Maximum of 4 grams (4000 mg) per day. Given 06/09/2024 10:21 AM EDT 650 mg dexAMETHasone (Decadron) tab 8 mg 8 mg, Oral, ONCE, On Fri06/09/24 at 1045, For 1 dose Given 06/09/2024 10:21 AM EDT 8 mg diphenhydrAMINE (Benadryl) cap 50 mg 50 mg, Oral, ONCE, On Fri06/09/24 at 1115, For 1 dose Given 06/09/2024 10:21 AM EDT 50 mg DOCEtaxel (Taxotere) 160 mg in NSS 250 mL infusion 160 mg (rounded from 162.75 mg = 75 mg/m2 2.17 m2 Treatment Plan BSA from Recorded weight), IV Piggyback, at 263 mL/hr Administer over 60 Minutes, Give 30-60 minutes AFTER Pertuzumab is complete., ONCE, 1 dose, On Fri06/09/24 at 1445 Start Infusion 06/09/2024 12:03 PM EDT 160 mg 263 mL/hr ondansetron (Zofran) tab 8 mg 8 mg, Oral, ONCE, On Fri06/09/24 at 1115, For 1 dose, Give 30 minutes prior to chemotherapy. Given 06/09/2024 10:21 AM EDT 8 mg PERtuzumab (Perjeta) 420 mg in NSS 250 mL infusion 420 mg, IV Piggyback, ONCE, 1 dose, On Fri06/09/24 at 1145, Administer over 30 Minutes Start Infusion 06/09/2024 10:53 AM EDT 420 mg 538 mL/hr Trastuzumab-dttb (Ontruzant) 598.71 mg in NSS 250 mL infusion 598.71 mg (rounded from 598.8 mg = 6 mg/kg 99.8 kg Treatment plan Recorded weight), IV Piggyback, ONCE, 1 dose, On Fri06/09/24 at 1145, Administer over 30 Minutes Start Infusion 06/09/2024 11:28 AM EDT 598.71 mg 510 mL/hr documented in this encounter Advance Directives * Full Code (Latest Code Status on File) Date Activated Date Inactivated Comments 03/31/2024 12:17 PM 03/31/2024 7:50 PM This order re flects the patients wishes and were consensually agreed upon. Question Answer Comments Discussion of Advance Directives occurred with: Patient Care Teams Gang Saw Operator Relationship Specialty Start Date End Date Nannette Rock DO [address] [place] [address] PCP - General Family Medicine 11/09/19 documented as of this encounter
--- OUTSIDE RECORDS SUMMARY | 2024-07-03 14:54 | External Medical Summary ---
Author Name Unknown Address Unknown Organization [facility] [place] [address] Laboratory Report Ordering Provider Test Date Status SANDEE POND 06/09/2024 08:58:12 Final Observation Date Value Abnormality Reference (Units ) Status Bilirubin, Direct 06/09/2024 08:58:12 0.2 0. 0-0.3 (mg/dL) Final Performing Location [facility] [address] [place] [address]
[2024-07-03] MEDS: ETHYL CHLORIDE AER PER SPRAY 100 ML CAN EXT ONE (15:30)
--- NOTE | 2024-07-03 15:32 | Emergency Department Note ---
Impression & Plan Dizziness, Breast cancer, Breast cancer metastasized to brain ED Provider Note NAME: MAGI May ELDER AGE: 49 SEX: Female INFORMANT: Patient ED PROVIDER(S): Ander Cabral MD CHIEF COMPLAINT: Dizziness PLAN: Disposition: Admitted Outpatient prescription management: none Referral: None MEDICAL DECISION MAKING: Patient presented with dizziness. History is concerning due to her medical history of metastatic breast cancer and the fact that she is undergoing chemotherapy. She noted bone pain as well as head pain. She was her EKG was nonischemic. Patient's monitoring revealed a sinus rhythm. Patient was given IV Dilaudid and Zofran for symptom control. Laboratory testing as well as CT and CT angiography performed. Thankfully the prior metastatic lesion was not seen on CT. Radiology questioned 2 small punctate foci but could not determine clinical significance. No acute vessel cutoff or aneurysm noted. Patient's laboratory testing showed a slight leukocytosis which could be related to her post chemo treatment. Potassium was repleted. Given the patient's symptoms of the dizziness, her chemotherapy, and CT findings I discussed additional management and evaluation in the hospital. Patient was in agreement. Patient will likely need MR imaging. consultation was made with Dr. Christiano Hall, [facility] hospitalist service. Patient was evaluated in the ER admitted for further management Care/management discussed with: systems project manager Level of care consideration(s): After review of the information above and other included data, I feel the patient requires escalation of care to admission Triage Nursing notes: reviewed and agree them. Vital Signs: reviewed and remarkable for mild tachycardia Additional History obtained from: Patient's . Notes no loss of consciousness. Chronic Medical/Social Conditions affecting care: Metastatic breast cancer Prior/ Outside/ External records reviewed: none Differential Diagnosis: Infection, dehydration, metabolic abnormality, hypo/hyperglycemia, electrolyte disturbance, anemia, hypoxia, cardiac sources, intracerebral event, toxicologic, neurologic, as well as other pathologies. Diagnostics, independently interpreted by me: ECG: Twelve-lead ECG reveals a normal sinus rhythm at 95 bpm. Poor R wave progression anteriorly. No ST elevation. Cardiac Monitoring: Cardiac monitoring ordered by me: The patient was placed on continuous cardiac monitoring and observed. It revealed a sinus tachycardic rhythm at 111 beats per minute without ectopy or evidence of dysrhythmia. Medical decision rules: none Imaging studies: Head CT: A noncontrast CT scan of the head was performed and was negative for tumor, fracture, intracranial hemorrhage. Punctate hyperdensities noted. I refer you to the EMR for further details. HPI: 49 year old Female arrives for evaluation of dizziness. This started yesterday regarding balance issues and is worsening today. Patient states around 1130 today she noted a headache, generalized weakness, blurry vision worsening and dizziness. The patient also notes the following associated symptoms, tingling in her fingers and toes which has been chronic but worse today. Patient has a lesion in her brain from metastatic breast cancer. She also has lesions in her bone. She just received her fifth chemotherapy treatment as well as "a shot" for her immune system. The patient has found relieving factors. Current pain is rated as 9/10. Pt denies LOC, flulike symptoms fevers, chills, diaphoresis, visual changes, neck pain, chest pain, breathing difficulties, nausea, vomiting, abdominal pain, back pain, melena, hematochezia, urinary symptoms, lymphadenopathy, rash, or other complaints.. PAST MEDICAL HISTORY: See Below, metastatic breast cancer PAST SURGICAL HISTORY: See Below, [facility] SOCIAL HISTORY: See Below, HOME MEDICATIONS: See Below ALLERGIES: See Below VITALS: See Below PHYSICAL EXAMINATION: GENERAL: Awake, alert, uncomfortable-appearing, in no distress HENT: Normocephalic, atraumatic. Oropharynx unremarkable. EYES: Normal conjunctiva. Sclera non-icteric. Pupil the left is small and nonreactive. 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 Right pupil is 4 mm and reactive. Extraocular muscle intact on the right side. NECK: Inspection normal. Non-tender. Supple. No nuchal rigidity. FROM. No masses. RESPIRATORY: Clear to auscultation. No wheezes. No rales. Normal respiratory effort. CARDIAC: Borderline tachycardia rate. Normal rhythm. No murmurs. No rubs. Extremities warm and well perfused. Pulses equal. No JVD. GI: Soft, non-distended. No tenderness to palpation. No rebound or guarding. No masses. RECTAL: Deferred. MUSCULOSKELETAL: Atraumatic. Chest examination reveals no tenderness. The back is symmetrical on inspection without obvious abnormality. There is no CVA tenderness to palpation. No joint edema. Examination of the left upper extremity reveals some mild edema. Prior mastectomy on the left side. LOWER EXTREMITIES: Calves are equal size bilaterally and non-tender. Trace edema. No discoloration. NEURO: Normal sensorium. Subjective tingling in the fingers and toes. Speech normal. No drift. Mild generalized weakness in the lower extremities but nothing focal. SKIN: No rash or jaundice noted. 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) History of breast cancer Left Hypothyroidism History of laparoscopic appendectomy (2022) Laparoscopic Appendectomy Medical History (Updated 07/03/24 @ 15:32 by Ander Cabral MD) Ureteral stent present Limb alert care status LUE Hx of renal calculi History of COVID-19 07/2023: Treated at [facility] ER due to SOB Lazy eye Left Hemangioma of skin Severe, Facial Surgical History (Updated 02/19/24 @ 00:10 by Background Daemon) History of vaginal delivery x2 S/P cystoscopy with ureteral stent placement Cystoscopy, laser litho, stent (11/20/23): Grade view 1, MAC#3, ETT 7.0 at [facility] Hx of cosmetic surgery Multiple facial surgeries to repair "superficial blood vessels" (as child) Hx of eye surgery multiple eye surgeries as a child to repair the "lazy eye" History of surgery Exploratory Excision behind left ear, "negative" (as child) History of cholecystectomy 07/30/2007 History of esophagogastroduodenoscopy (EGD) History of lumpectomy of left breast (2019) + SLN Biopsy S/P breast biopsy, left 2019 Family History Grandmother (Paternal) , Passed in 80's of unknown Breast cancer Mother No problems noted. Father No problems noted. Brother No problems noted. Son No problems noted. Daughter No problems noted. 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 [employer]3 Feels Safe at Home: Yes Safety Concerns: Feels Safe At This Time Childhood Exposure to Second-Hand Smoke: Yes (Father smoked in home ) Diet: regular caffeine: Yes (1 cup of tea/day, soda throughout the day at times ) during the past year weight has: remained stable Dental Care, Regularly: Yes Assistive Devices: None Allergies Allergies Allergy/AdvReac Type Severity Reaction Status Date / Time Penicillins Allergy Intermediate Rash- Verified 07/03/24 19:05 Amoxicillin tazobactam Allergy Intermediate Rash Verified 07/03/24 19:05 adhesive Allergy Mild Rash Verified 07/03/24 19:05 Home Meds Home Medications Medication Instructions Recorded Confirmed levothyroxine 137 mcg capsule 137 mcg PO QAM 05/15/22 07/03/24 dexamethasone 4 mg tablet 8 mg PO BID PRN chemo 06/07/24 07/03/24 diphenoxylate-atropine 2.5 1 tab PO Q6H PRN Diarrhea 06/07/24 07/03/24 mg-0.025 mg tablet (Lomotil) famotidine 20 mg tablet 20 mg PO BID PRN chemo 06/07/24 07/03/24 ondansetron 8 mg disintegrating 8 mg PO Q8H PRN Nausea 06/07/24 07/03/24 tablet prochlorperazine maleate 10 mg 10 mg PO Q6H PRN Nausea 06/07/24 07/03/24 tablet (Compazine) benzonatate 100 mg capsule 100 mg PO TID PRN chemo 07/03/24 07/03/24 omeprazole 20 mg capsule,delayed 20 mg PO DAILYBB 07/03/24 07/03/24 release potassium chloride 10 mEq 10 meq PO BID 07/03/24 07/03/24 tablet,extended release Previous Rx's Medication Instructions Recorded acetaminophen 500 mg tablet 1,000 mg (2 x 500 mg) PO Q8H PRN 11/15/23 (Tylenol Extra Strength) pain #90 tabs Results & Data (ED) Vital Signs Vital Signs - 24 hr 07/03/24 14:50 07/03/24 15:39 07/03/24 16:00 Temperature 36.8 C Temperature Source Temporal Artery Scan Pulse Rate 111 H 91 H Pulse Rate [Left Apical] Respiratory Rate 20 20 Respiratory Effort / Characteristics Non-Labored Spontaneous Respiratory Depth Normal Respiratory Pattern Regular Blood Pressure 122/80 104/65 Blood Pressure [Right Arm] Blood Pressure Mean 94 81 Blood Pressure Mean [Right Arm] Pulse Oximetry 92 91 Oxygen Delivery Method Room Air Room Air Oxygen Flow Rate Sepsis Recent Fever Within 48 Hours No Sepsis New/Unexplained Change in Mental Status N/A Sepsis Action Taken by Nursing No Action Required Oxygen Flow Rate - Titration Pulse Oximetry Post Tiitration 07/03/24 16:15 07/03/24 16:21 07/03/24 16:22 Temperature Temperature Source Pulse Rate 90 93 H 97 H Pulse Rate [Left Apical] Respiratory Rate 23 22 Respiratory Effort / Characteristics Respiratory Depth Respiratory Pattern Blood Pressure Blood Pressure [Right Arm] Blood Pressure Mean Blood Pressure Mean [Right Arm] Pulse Oximetry Oxygen Delivery Method Oxygen Flow Rate Sepsis Recent Fever Within 48 Hours Sepsis New/Unexplained Change in Mental Status Sepsis Action Taken by Nursing Oxygen Flow Rate - Titration Pulse Oximetry Post Tiitration 07/03/24 16:39 07/03/24 16:43 07/03/24 17:00 Temperature Temperature Source Pulse Rate 99 H Pulse Rate [Left Apical] Respiratory Rate 15 Respiratory Effort / Characteristics Respiratory Depth Respiratory Pattern Blood Pressure 97/65 L Blood Pressure [Right Arm] Blood Pressure Mean 78 Blood Pressure Mean [Right Arm] Pulse Oximetry 91 89 L Oxygen Delivery Method Room Air Nasal Cannula Oxygen Flow Rate 0 Sepsis Recent Fever Within 48 Hours Sepsis New/Unexplained Change in Mental Status Sepsis Action Taken by Nursing Oxygen Flow Rate - Titration 2 Pulse Oximetry Post Tiitration 92 07/03/24 17:18 07/03/24 17:24 07/03/24 17:45 Temperature Temperature Source Pulse Rate 79 78 Pulse Rate [Left Apical] Respiratory Rate 23 21 Respiratory Effort / Characteristics Respiratory Depth Respiratory Pattern Blood Pressure 105/69 Blood Pressure [Right Arm] Blood Pressure Mean 78 Blood Pressure Mean [Right Arm] Pulse Oximetry 95 96 Oxygen Delivery Method Nasal Cannula Nasal Cannula Oxygen Flow Rate 2 2 Sepsis Recent Fever Within 48 Hours Sepsis New/Unexplained Change in Mental Status Sepsis Action Taken by Nursing Oxygen Flow Rate - Titration Pulse Oximetry Post Tiitration 07/03/24 17:51 07/03/24 17:58 07/03/24 18:09 Temperature Temperature Source Pulse Rate 86 85 Pulse Rate [Left Apical] Respiratory Rate 19 17 Respiratory Effort / Characteristics Respiratory Depth Respiratory Pattern Blood Pressure Blood Pressure [Right Arm] Blood Pressure Mean Blood Pressure Mean [Right Arm] Pulse Oximetry 94 Oxygen Delivery Method Room Air Room Air Oxygen Flow Rate Sepsis Recent Fever Within 48 Hours Sepsis New/Unexplained Change in Mental Status Sepsis Action Taken by Nursing Oxygen Flow Rate - Titration 0 Pulse Oximetry Post Tiitration 93 07/03/24 18:21 07/03/24 19:09 07/03/24 19:12 Temperature Temperature Source Pulse Rate 86 89 93 H Pulse Rate [Left Apical] Respiratory Rate 22 21 24 Respiratory Effort / Characteristics Respiratory Depth Respiratory Pattern Blood Pressure Blood Pressure [Right Arm] Blood Pressure Mean Blood Pressure Mean [Right Arm] Pulse Oximetry 91 90 Oxygen Delivery Method Room Air Room Air Oxygen Flow Rate Sepsis Recent Fever Within 48 Hours Sepsis New/Unexplained Change in Mental Status Sepsis Action Taken by Nursing Oxygen Flow Rate - Titration Pulse Oximetry Post Tiitration 07/03/24 19:13 07/03/24 19:21 07/03/24 19:30 Temperature Temperature Source Pulse Rate 89 84 Pulse Rate [Left Apical] Respiratory Rate 20 22 Respiratory Effort / Characteristics Respiratory Depth Respiratory Pattern Blood Pressure Blood Pressure [Right Arm] 116/71 Blood Pressure Mean Blood Pressure Mean [Right Arm] 86 Pulse Oximetry 91 92 Oxygen Delivery Method Room Air Room Air Oxygen Flow Rate Sepsis Recent Fever Within 48 Hours Sepsis New/Unexplained Change in Mental Status Sepsis Action Taken by Nursing Oxygen Flow Rate - Titration Pulse Oximetry Post Tiitration 07/03/24 19:32 07/03/24 19:55 07/03/24 20:00 Temperature Temperature Source Pulse Rate 85 87 Pulse Rate [Left Apical] Respiratory Rate 18 Respiratory Effort / Characteristics Respiratory Depth Respiratory Pattern Blood Pressure 103/75 101/62 Blood Pressure [Right Arm] Blood Pressure Mean 90 75 Blood Pressure Mean [Right Arm] Pulse Oximetry 90 Oxygen Delivery Method Room Air Oxygen Flow Rate Sepsis Recent Fever Within 48 Hours Sepsis New/Unexplained Change in Mental Status Sepsis Action Taken by Nursing Oxygen Flow Rate - Titration Pulse Oximetry Post Tiitration 07/03/24 20:12 07/03/24 20:30 10/05/24 20:54 Temperature Temperature Source Pulse Rate 82 84 83 Pulse Rate [Left Apical] Respiratory Rate 18 21 17 Respiratory Effort / Characteristics Respiratory Depth Respiratory Pattern Blood Pressure 108/67 Blood Pressure [Right Arm] Blood Pressure Mean 80 Blood Pressure Mean [Right Arm] Pulse Oximetry 91 92 92 Oxygen Delivery Method Room Air Room Air Room Air Oxygen Flow Rate Sepsis Recent Fever Within 48 Hours Sepsis New/Unexplained Change in Mental Status Sepsis Action Taken by Nursing Oxygen Flow Rate - Titration Pulse Oximetry Post Tiitration 07/03/24 21:00 07/03/24 21:12 07/03/24 22:30 Temperature Temperature Source Pulse Rate 84 94 H Pulse Rate [Left Apical] Respiratory Rate 18 22 Respiratory Effort / Characteristics Respiratory Depth Respiratory Pattern Blood Pressure 106/65 Blood Pressure [Right Arm] 107/69 Blood Pressure Mean 78 Blood Pressure Mean [Right Arm] 81 Pulse Oximetry 91 95 Oxygen Delivery Method Room Air Room Air Oxygen Flow Rate Sepsis Recent Fever Within 48 Hours Sepsis New/Unexplained Change in Mental Status Sepsis Action Taken by Nursing Oxygen Flow Rate - Titration Pulse Oximetry Post Tiitration 07/03/24 22:37 Temperature Temperature Source Pulse Rate Pulse Rate [Left Apical] 91 H Respiratory Rate Respiratory Effort / Characteristics Respiratory Depth Respiratory Pattern Blood Pressure Blood Pressure [Right Arm] Blood Pressure Mean Blood Pressure Mean [Right Arm] Pulse Oximetry 90 Oxygen Delivery Method Room Air Oxygen Flow Rate Sepsis Recent Fever Within 48 Hours Sepsis New/Unexplained Change in Mental Status Sepsis Action Taken by Nursing Oxygen Flow Rate - Titration Pulse Oximetry Post Tiitration Laboratory Data 07/04/24 04:25 07/04/24 04:25 Lab Results 07/03/24 07/03/24 07/03/24 Range/Units 15:36 15:37 18:30 WBC 12.89 H (4.8-10.8) K/ul RBC 3.75 L (4.20-5.40) M/uL Hgb 11.5 L (12.0-16.0) g/dl Hct 34.5 L (37.0-47.0) % MCV 92.0 (80.0-100.0) fL MCH 30.7 (25.0-34.0) pg MCHC 33.3 (32.0-36.0) g/dL RDW Std Deviation 49.8 H (36.4-46.3) fL RDW Coeff of Suresh 14.6 H (11.5-14.5) % Plt Count 179 (130-400) K/uL MPV 10.1 (9.4-12.4) fL Immature Gran % (Auto) 6.5 % Neut % (Auto) 86.2 % Lymph % (Auto) 6.8 % Cowley % (Auto) 0.2 % Eos % (Auto) 0.1 % Baso % (Auto) 0.2 % Reticulocyte % (Auto) 2.48 H (0.50-2.00) % Neut # (Auto) 11.11 H (1.40-6.50) K/uL Lymph # (Auto) 0.88 L (1.20-3.40) K/uL Cowley # (Auto) 0.03 L (0.11-0.59) K/uL Eos # (Auto) 0.01 (0.00-0.50) K/uL Baso # (Auto) 0.02 (0.00-0.20) K/uL Reticulocyte # 0.090 (0.020-0.100) 10^6/uL Immature Gran # (Auto) 0.84 H (0.01-0.20) K/uL RBC Morphology Unremarkable Sodium 137 (136-145) mmol/L Potassium 3.3 L (3.5-5.1) mmol/L Chloride 107 (98-107) mmol/L Carbon Dioxide 25 (21-32) mmol/L Anion Gap 5 (3-11) BUN 13 (6-23) mg/dl Creatinine 0.74 (0.6-1.2) mg/dl Est Cr Clr Drug Dosing 110.1 ml/min eGFR 99.12 BUN/Creatinine Ratio 17.6 (10-20) Glucose 97 (70-99(Fasting)) mg/dl Calcium 8.3 L (8.6-10.3) mg/dl Magnesium 1.7 (1.7-2.4) mg/dl Total Bilirubin 2.9 H (0.2-1.0) mg/dl AST 33 (13-39) U/L ALT 40 (7-52) U/L Alkaline Phosphatase 62 (34-104) U/L Troponin I High Sens 7.0 (0-14) pg/ml Total Protein 5.3 L (6.0-8.3) gm/dl Albumin 3.5 (3.4-5.0) gm/dl Globulin 1.8 L (2.5-4.0) gm/dl Albumin/Globulin Ratio 1.9 (0.9-2) TSH 3.024 (0.300-4.500) uIu/ml Urine Color Yellow Urine Appearance Clear (Clear) Urine pH 5.5 (4.5-7.5) Ur Specific [place] 1.028 (1.000-1.030) Urine Protein Negative (Negative) Urine Glucose (UA) Negative (Negative) Urine Ketones Negative (Negative) Urine Blood Negative (Negative) Urine Nitrite Negative (Negative) Urine Bilirubin Negative (Negative) Urine Urobilinogen Negative (Negative) Ur Leukocyte Esterase Trace H (Negative) Urine WBC (Auto) 0-5 (0-5) /hpf Urine RBC (Auto) 0-2 (0-2) /hpf U Hyaline Cast (Auto) 0-2 (0-2) /lpf U Epithel Cells (Auto) 0-2 (0-2) /hpf Urine Bacteria (Auto) None Seen (None Seen) Adenovirus (PCR) Not Detected (NotDetected) B. pertussis DNA (PCR) Not Detected (NotDetected) B.parapertussis DNA PCR Not Detected (NotDetected) C. pneumoniae DNA (PCR) Not Detected (NotDetected) Coronavirus OC43 (PCR) Not Detected (NotDetected) Coronavirus HKU1 (PCR) Not Detected (NotDetected) Coronavirus 229E (PCR) Not Detected (NotDetected) SARS-CoV-2 (PCR) Not Detected (NotDetected) Coronavirus NL63 (PCR) Not Detected (NotDetected) Human Metapneumovir PCR Not Detected (NotDetected) Influenza Type A (PCR) Not Detected (NotDetected) Influenza Type B (PCR) Not Detected (NotDetected) M. pneumoniae (PCR) Not Detected (NotDetected) Parainfluenza 1 (PCR) Not Detected (NotDetected) Parainfluenza 2 (PCR) Not Detected (NotDetected) Parainfluenza 3 (PCR) Not Detected (NotDetected) Parainfluenza 4 (PCR) Not Detected (NotDetected) RSV (PCR) Not Detected (NotDetected) Entero/Rhino (PCR) Not Detected (NotDetected) Administered Medications Acetaminophen (Acetaminophen 325 Mg Tab) 650 mg PO QID PRN PRN Reason: pain/fever Stop: 08/02/24 20:38 Last Admin: 07/04/24 11:29 Dose: 650 mg Documented By: Admin: 07/03/24 22:32 Dose: 650 mg Documented By: Ketorolac Tromethamine (Ketorolac Tromethamine 15 Mg/Ml Vial) 15 mg IV Q6H PRN PRN Reason: Pain Stop: 07/08/24 20:38 Last Admin: 07/04/24 04:58 Dose: 15 mg Documented By: MAURICIO Levothyroxine Sodium (Levothyroxine Sodium 137 Mcg Tablet) [facility] Stop: 08/03/24 06:29 Last Admin: 07/04/24 05:56 Dose: 137 mcg Documented By: MAURICIO Pantoprazole Sodium (Pantoprazole 40 Mg Tab) 40 mg PO DAILYBB [facility] Stop: 08/03/24 06:29 Last Admin: 07/04/24 05:56 Dose: 40 mg Documented By: MAURICIO Discontinued Medications Ethyl Chloride (Ethyl Chloride Aer Per [place] 100 Ml Can) Confirm Administered Dose 1 sprays EXT .STK-MED ONE Stop: 07/03/24 15:16 Last Admin: 07/03/24 15:30 Dose: 1 sprays Documented By: PALLAVI Gadobutrol (Gadobutrol 65ml Vial) 9 ml IV ONCE ONE Stop: 07/03/24 21:58 Last Admin: 07/03/24 21:57 Dose: 9 ml Documented By: ADAM Hydromorphone HCl (Hydromorphone Inj 0.5 Mg/0.5 Ml Syr) 0.5 mg IV Q15M PRN PRN Reason: Pain Stop: 07/17/24 16:15 Last Admin: 07/03/24 16:30 Dose: 0.5 mg Documented By: PALLAVI Potassium Chloride (K Jerome / Wtr) 10 meq in 100 mls @ 100 mls/hr IV ONE ONE Stop: 07/03/24 17:11 Last Infusion: 07/03/24 17:59 Dose: Infused Documented By: Admin: 07/03/24 16:30 Dose: 100 mls/hr Documented By: PALLAVI Sodium Chloride (Nss) 500 mls @ 999 mls/hr IV .Q31M ONE Stop: 07/03/24 16:46 Last Infusion: 07/03/24 17:10 Dose: Infused Documented By: Admin: 07/03/24 16:30 Dose: 999 mls/hr Documented By: PALLAVI Sodium Chloride (Nss) 1,000 mls @ 125 mls/hr IV .Q8H ROYER Stop: 08/02/24 16:29 Last Infusion: 07/04/24 00:44 Dose: Infused Documented By: Admin: 07/03/24 17:07 Dose: 125 mls/hr Documented By: PALLAVI Potassium Chloride/Sodium Chloride (Normal Saline W/20 Meq Kcl) 20 meq in 1,000 mls @ 60 mls/hr IV .[id number] ONE Stop: 07/04/24 12:09 Last Infusion: 07/04/24 16:14 Dose: Infused Documented By: Admin: 07/03/24 22:22 Dose: 60 mls/hr Documented By: Magnesium Sulfate/Dextrose (Magnesium Sulfate / D5w) 1 gm in 100 mls @ 50 mls/hr IV Q2H [facility] Stop: 07/03/24 23:29 Last Infusion: 07/04/24 02:50 Dose: Infused Documented By: Admin: 07/04/24 00:29 Dose: 50 mls/hr Documented By: Infusion: 07/04/24 00:24 Dose: Infused Documented By: Admin: 07/03/24 22:24 Dose: 50 mls/hr Documented By: Ioversol (Optiray 320 125ml) 119 ml IV ONCE ONE Stop: 07/03/24 17:38 Last Admin: 07/03/24 17:37 Dose: 119 ml Documented By: BENJAMIN Ondansetron HCl (Ondansetron Inj 2 Mg/Ml 2 Ml Vial) 4 mg IV NOW STA Stop: 07/03/24 16:17 Last Admin: 07/03/24 16:30 Dose: 4 mg Documented By: PALLAVI Imaging Data Radiologist's Impression: Chest X-Ray 07/03/24 14:58 XR chest 1V portable CLINICAL HISTORY: weakness COMPARISON STUDY: Chest radiograph August 18, 2023. FINDINGS: Right subclavian [id number] is in place. Tip projects over the proximal right atrium. Lung volumes are normal. Lungs are clear. There is no pneumothorax or pleural effusion. Cardiac size is normal. Mediastinal contours are normal. There is no evidence for pulmonary edema. IMPRESSION: No acute cardiopulmonary findings. ACT 112: Negative or not required by law. Electronically signed by: Hermilo Garcia M.D. 07/03/2024 4:46 PM Head CTA 07/03/24 15:10 CT angio head wo/w CLINICAL HISTORY: stroke like symptoms, hx of metastatic breast CA COMPARISON STUDY: MRI of the brain April 08, 2024. TECHNIQUE: Unenhanced and arterial phase imaging of the head was performed. Intravenous injection of 119 cc of Optiray 320 IV was uneventful. Automated exposure control was utilized for the study. A dose lowering technique was utilized adhering to the principles of ALARA. FINDINGS: No acute intracranial hemorrhage, midline shift or mass effect is present. Ventricular system is normal. Basal cisterns are patent. There are no extra-axial collections. Tran-white differentiation is maintained. There are no findings to suggest acute dural sinus thrombosis or acute territorial infarct. Punctate hyperdense focus within the left posterior brayden on image 11 of 28 is noted as well as a punctate hyperdense focus within the vermis on image 9 of 20. These were likely present on Coumadin clinic CT of May 14, 2024. There is moderate narrowing at the takeoff of the left middle cerebral artery. No large vessel occlusion is identified. There are no intracranial aneurysm. Posterior circulation is intact. The left parietal lobe enhancing lesion on prior MRI of the brain is not well visualized on this exam. IMPRESSION: 1. No acute intracranial findings. 2. No large vessel occlusion or intracranial aneurysm. Moderate narrowing at the takeoff of the left middle cerebral artery. 3. The enhancing lesion within the left parietal lobe on previous MRI is not well visualized. This favors a treatment response although could be related to CT technique. 4. Punctate hyperdense foci within the left posterior brayden and cerebellar vermis. These are of questionable significance and were likely present on CT of May 14, 2024. These can be assessed on follow-up exams. ACT 112: Negative or not required by law. Electronically signed by: Hermilo Garcia M.D. 07/03/2024 5:55 PM Neck CTA 07/03/24 15:10 CT ANGIOGRAPHY OF THE NECK WITH CONTRAST CLINICAL HISTORY: stroke like symptoms COMPARISON STUDY: PET CT March 30, 2024. Technique: CT angiography of the carotid and vertebral arteries was obtained using Optiray and 3D reconstruction on an independent workstation. NASCET criteria was utilized. Automated exposure control was utilized for the study. A dose lowering technique was utilized adhering to the principles of ALARA. Findings: Right subclavian Jymrwo-i-Kcms is partially imaged. The FDG avid left supraclavicular lymph node on prior PET/CT has decreased in size. This suggests a treatment response. The bilateral common carotid, cervical internal carotid and vertebral arteries are patent. There is no stenosis, dissection or aneurysm within the neck. Vertebral arteries are patent. Right vertebral artery is dominant. CTA of the head will be reported separately. Ground glass opacities within visualized portions of the chest are noted. IMPRESSION: 1. No stenosis or dissection within the bilateral common carotid, cervical internal carotid or vertebral arteries. 2. Nonspecific groundglass opacities within visualized portions of the lung apices. ACT 112: Negative or not required by law. Electronically signed by: Hermilo Garcia M.D. 07/03/2024 6:15 PM Discharge Plan Visit Data Chief Complaint: Dizziness Stated Complaint: DIZZY, BLURRY VISION, STUMBLING ED Provider: Ander Cabral Discharge Problem: Dizziness, Breast cancer, Breast cancer metastasized to brain Patient Disposition: Admitted As Inpatient Discharge Instructions Interventions: ED Discharge Assessment Last Done: 07/03/24 23:56
[2024-07-03 16:07] LABS: Albumin Globulin Ratio 1.9 (0.9-2); Albumin Level 3.5 gm/dl (3.4-5.0); BUN Creatinine Ratio 17.6 (10-20); Bilirubin,Total 2.9 mg/dl (0.2-1.0); Calcium 8.3 mg/dl (8.6-10.3); Creatinine Clr Calc Pharmacy 110.1 ml/min; Globulin 1.8 gm/dl (2.5-4.0); Potassium 3.3 mmol/L (3.5-5.1); Total Protein 5.3 gm/dl (6.0-8.3)
[2024-07-03 16:14] LABS: Basophils # (auto) 0.02 K/uL (0.00-0.20); Basophils % (auto) 0.2 %; Eosinophils # (auto) 0.01 K/uL (0.00-0.50); Eosinophils % (auto) 0.1 %; Hematocrit (blood only) 34.5 % (37.0-47.0); Hemoglobin 11.5 g/dl (12.0-16.0); Immature Granulocytes # (auto) 0.84 K/uL (0.01-0.20); Immature Granulocytes % (auto) 6.5 %; Lymphocytes # (auto) 0.88 K/uL (1.20-3.40); Lymphocytes % (auto) 6.8 %; Mean Corpuscular Hemoglobin 30.7 pg (25.0-34.0); Mean Corpuscular Hgb Conc 33.3 g/dL (32.0-36.0); Mean Platelet Volume 10.1 fL (9.4-12.4); Monocytes # (auto) 0.03 K/uL (0.11-0.59); Monocytes % (auto) 0.2 %; Neutrophils # (auto) 11.11 K/uL (1.40-6.50); Neutrophils % (auto) 86.2 %; Platelet Count 179 K/uL (130-400); RBC Morphology Unremarkable; RDW Coefficient of Variation 14.6 % (11.5-14.5); RDW Standard Deviation 49.8 fL (36.4-46.3); Red Blood Count 3.75 M/uL (4.20-5.40); White Blood Count 12.89 K/ul (4.8-10.8)
[2024-07-03 16:22] LABS: Thyroid Stimulating Hormone 3.024 uIu/ml (0.300-4.500)
[2024-07-03] MEDS: POTASSIUM CHLORIDE / WTR 10 MEQ/100 ML PLCT IV ONE (16:30)
[2024-07-03] MEDS: ONDANSETRON INJ 2 MG/ML 2 ML VIAL IV STA (16:30)
[2024-07-03] MEDS: SODIUM CHLORIDE 0.9% 500 ML IV ONE (16:30)
[2024-07-03] MEDS: HYDROmorphone INJ 0.5 MG/0.5 ML SYR IV PRN (16:30)
--- NOTE | 2024-07-03 16:47 | XRay Report ---
XR chest 1V portable CLINICAL HISTORY: weakness COMPARISON STUDY: Chest radiograph August 18, 2023. FINDINGS: Right subclavian Yeyleo-o-Irgi is in place. Tip projects over the proximal right atrium. Rosaura ng volumes are normal. Lungs are clear. There is no pneumothorax or pleural effusion. Cardiac size is normal. Mediastinal contours are normal. There is no evidence for pulmonary edema. IMPRESSION: No acute cardiopulmonary findings. ACT 112: Negative or not required by law. Electronically signed by: Hermilo Garcia M.D. 07/03/2024 4:46 PM
[2024-07-03 16:53] LABS: Magnesium 1.7 mg/dl (1.7-2.4)
[2024-07-03] MEDS: SODIUM CHLORIDE 0.9% 1,000 ML IV SCH (17:07)
[2024-07-03 17:25] LABS: Adenovirus PCR Not Detected (NotDetected); Bordetella parapertussis PCR Not Detected (NotDetected); Bordetella pertussis PCR Not Detected (NotDetected); Chlamydia pneumoniae PCR Not Detected (NotDetected); Coronavirus 229E PCR Not Detected (NotDetected); Coronavirus CoV-2 (COVID19)PCR Not Detected (NotDetected); Coronavirus HKU1 PCR Not Detected (NotDetected); Coronavirus NL63 PCR Not Detected (NotDetected); Coronavirus OC43PCR Not Detected (NotDetected); Human Metapneumovirus PCR Not Detected (NotDetected); Influenza A PCR Not Detected (NotDetected); Influenza B PCR Not Detected (NotDetected); Mycoplasma pneumoniae PCR Not Detected (NotDetected); Parainfluenza Virus 1 PCR Not Detected (NotDetected); Parainfluenza Virus 2 PCR Not Detected (NotDetected); Parainfluenza Virus 3 PCR Not Detected (NotDetected); Parainfluenza Virus 4 PCR Not Detected (NotDetected); Respiratory Syncytial VirusPCR Not Detected (NotDetected); Rhinovirus/Enterovirus PCR Not Detected (NotDetected)
[2024-07-03] MEDS: OPTIRAY 320 125ml IV ONE (17:37)
--- NOTE | 2024-07-03 17:57 | CT Scan Report ---
CT angio head wo/w CLINICAL HISTORY: stroke like symptoms, hx of metastatic breast CA COMPARISON STUDY: MRI of the brain April 08, 2024. TECHNIQUE: Unenhanced and arterial phase imaging of the head was performed. Intravenous injection of 119 cc of Optiray 320 IV was uneventful. Automated exposure control was utilized for the study. A do se lowering technique was utilized adhering to the principles of ALARA. FINDINGS: No acute intracranial hemorrhage, midline shift or mass effect is present. Ventricular syst em is normal. Basal cisterns are patent. There are no extra-axial collections. Tran-white differentia tion is maintained. There are no findings to suggest acute dural sinus thrombosis or acute territoria l infarct. Punctate hyperdense focus within the left posterior brayden on image 11 of 28 is noted as wel l as a punctate hyperdense focus within the vermis on image 9 of 20. These were likely present on [facility] CT of May 14, 2024. There is moderate narrowing at the takeoff of the left middle cer ebral artery. No large vessel occlusion is identified. There are no intracranial aneurysm. Posterior circulation is intact. The left parietal lobe enhancing lesion on prior MRI of the brain is not well visualized on this exam. IMPRESSION: 1. No acute intracranial findings. 2. No large vessel occlusion or intracranial aneurysm. Moderate narrowing at the takeoff of the left middle cerebral artery. 3. The enhancing lesion within the left parietal lobe on previous MRI is not well visualized. This fa vors a treatment response although could be related to CT technique. 4. Punctate hyperdense foci within the left posterior brayden and cerebellar vermis. These are of questi onable significance and were likely present on CT of May 14, 2024. These can be assessed on follow -up exams. ACT 112: Negative or not required by law. Electronically signed by: Hermilo Garcia M.D. 07/03/2024 5:55 PM
--- NOTE | 2024-07-03 18:18 | CT Scan Report ---
CT ANGIOGRAPHY OF THE NECK WITH CONTRAST CLINICAL HISTORY: stroke like symptoms COMPARISON STUDY: PET CT March 30, 2024. Technique: CT angiography of the carotid and vertebral arteries was obtained using Optiray and 3D rec onstruction on an independent workstation. NASCET criteria was utilized. Automated exposure control was utilized for the study. A dose lowering technique was utilized adhering to the principles of ALA RA. Findings: Right subclavian Ymvumn-r-Ofsd is partially imaged. The FDG avid left supraclavicular lymph node on prior PET/CT has decreased in size. This suggests a treatment response. The bilateral common carotid, cervical internal carotid and vertebral arteries are patent. There is no stenosis, dissecti on or aneurysm within the neck. Vertebral arteries are patent. Right vertebral artery is dominant. CT A of the head will be reported separately. Ground glass opacities within visualized portions of the c hest are noted. IMPRESSION: 1. No stenosis or dissection within the bilateral common carotid, cervical internal carotid or verteb ral arteries. 2. Nonspecific groundglass opacities within visualized portions of the lung apices. ACT 112: Negative or not required by law. Electronically signed by: Hermilo Garcia M.D. 07/03/2024 6:15 PM
[2024-07-03 18:47] LABS: Appearance Urine Clear (Clear); Bacteria Urine Automated None Seen (None Seen); Bilirubin Urine Negative (Negative); Blood Urine Negative (Negative); Cast Urine Automated 0-2 /lpf (0-2); Color Urine Yellow; Epithelial Cell Urine Auto 0-2 /hpf (0-2); Glucose Urine UA Negative (Negative); Ketones Urine Negative (Negative); Leukocyte Esterase Urine Trace (Negative); Nitrite Urine Negative (Negative); Protein Urine Negative (Negative); RBC Urine Automated 0-2 /hpf (0-2); Specific Gravity Urine 1.028 (1.000-1.030); Urobilinogen Urine Negative (Negative); WBC Urine Automated 0-5 /hpf (0-5); pH Urine 5.5 (4.5-7.5)
--- NOTE | 2024-07-03 20:36 | History & Physical Report ---
Date of Service July 03, 2024 Assessment & Plan (1) Dizziness: Plan: Dizziness with blurred vision complaints Possible orthostasis given low BP possibly from diarrheal illness possibly from chemotherapy rule out infectious causes Rule out progression of brain mets History metastatic breast cancer status post surgery/radiation ongoing chemotherapy GERD, stable hypothyroidism, euthyroid as of today's TSH New onset anemia, no overt source of bleed, FOBT done at the ER was negative, possibly from chemotherapy OBS Medical telemetry IVF Stool workup Brain MRI Anemia workup, transfuse RBC if hemoglobin less than 7 and or for symptomatic anemia DVT prophylaxis. SCDs re: history of brain mets Full code Text document was generated using [employer] voice recognition software. It may contain grammatical or spelling errors. Kindly contact undersigned for clarification of any documentation item in question. History of Present Illness Chief Complaint: Headache, dizziness Primary Care Provider: Nannette Rock, History obtained from patient and records. Medical history significant for left breast cancer status post surgery/radiation ongoing chemotherapy with brain mets status post SBRT, GERD, hypothyroidism, facial hemangioma status post surgery, urolithiasis Last confinement October 2023 for right flank pain secondary to obstructive uropathy. Patient with dizziness episode described as imbalance and stumbling associated with achy headache symptoms since yesterday. Double vision with some nausea. No vomiting. No head trauma, no chest pain, no SOB. Watery diarrhea attributed to chemotherapy. Denies black/bloody stools. Low with SBP of 90s documented at the ER. 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 Allergies Allergy/AdvReac Type Severity Reaction Status Date / Time Penicillins Allergy Intermediate Rash- Verified 07/03/24 19:05 Amoxicillin tazobactam Allergy Intermediate Rash Verified 07/03/24 19:05 adhesive Allergy Mild Rash Verified 07/03/24 19:05 Home Medications Medication Instructions Recorded Confirmed Type levothyroxine 137 mcg capsule 137 mcg PO QAM 05/15/22 07/03/24 History acetaminophen 500 mg tablet 1,000 mg (2 x 500 mg) PO Q8H PRN 11/15/23 07/03/24 Rx (Tylenol Extra Strength) pain #90 tabs dexamethasone 4 mg tablet 8 mg PO BID PRN chemo 06/07/24 07/03/24 History diphenoxylate-atropine 2.5 1 tab PO Q6H PRN Diarrhea 06/07/24 07/03/24 History mg-0.025 mg tablet (Lomotil) famotidine 20 mg tablet 20 mg PO BID PRN chemo 06/07/24 07/03/24 History ondansetron 8 mg disintegrating 8 mg PO Q8H PRN Nausea 06/07/24 07/03/24 History tablet prochlorperazine maleate 10 mg 10 mg PO Q6H PRN Nausea 06/07/24 07/03/24 History tablet (Compazine) benzonatate 100 mg capsule 100 mg PO TID PRN chemo 07/03/24 07/03/24 History omeprazole 20 mg capsule,delayed 20 mg PO DAILYBB 07/03/24 07/03/24 History release potassium chloride 10 mEq 10 meq PO BID 07/03/24 07/03/24 History tablet,extended release Past Med/Surg History Problem List (Updated 02/19/24 @ 00:10 by Background Daemon) Breast cancer metastasized to brain (Acute) Breast cancer (Acute) Dizziness (Acute) Breast cancer metastasized to brain Hydronephrosis of right kidney Nephrolithiasis (Acute) Renal cyst (Acute) S/P laparoscopic appendectomy Acute appendicitis (Acute) 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) History of breast cancer Left Hypothyroidism History of laparoscopic appendectomy (2022) Laparoscopic Appendectomy Medical History (Updated 07/03/24 @ 15:32 by Ander Cabral MD) Ureteral stent present Limb alert care status LUE Hx of renal calculi History of COVID-19 07/2023: Treated at [facility] ER due to SOB Lazy eye Left Hemangioma of skin Severe, Facial Surgical History (Updated 02/19/24 @ 00:10 by Background Daemon) History of vaginal delivery x2 S/P cystoscopy with ureteral stent placement Cystoscopy, laser litho, stent (11/20/23): Grade view 1, MAC#3, ETT 7.0 at [facility] Hx of cosmetic surgery Multiple facial surgeries to repair "superficial blood vessels" (as child) Hx of eye surgery multiple eye surgeries as a child to repair the "lazy eye" History of surgery Exploratory Excision behind left ear, "negative" (as child) History of cholecystectomy 07/30/2007 History of esophagogastroduodenoscopy (EGD) History of lumpectomy of left breast (2019) + SLN Biopsy S/P breast biopsy, left 2019 Family History Grandmother (Paternal) , Passed in 80's of unknown Breast cancer Mother No problems noted. Father No problems noted. Brother No problems noted. Son No problems noted. Daughter No problems noted. 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 [employer]3 Feels Safe at Home: Yes Safety Concerns: Feels Safe At This Time Childhood Exposure to Second-Hand Smoke: Yes (Father smoked in home ) Diet: regular caffeine: Yes (1 cup of tea/day, soda throughout the day at times ) during the past year weight has: remained stable Dental Care, Regularly: Yes Assistive Devices: Glasses Review of Systems Review of Systems: As per HPI, all other systems reviewed and negative Physical Exam Physical Exam: GENERAL: Comfortable, pleasant, obese, no respiratory distress SKIN: Pallor, warm HEENT: Alopecia, pale palpebral conjunctivae, chronic left ptosis (from lazy eye), chronic lip asymmetry from facial hemangioma treatment, dry buccal mucosa NECK : Supple, no tenderness CHEST : CTA, no tenderness HEART : RRR, no obvious murmurs ABDOMEN: Some distention, nontender RECTAL : Intact sphincter, brown stool (FOBT negative) EXTREMITIES : Minimal LE swelling, no LE tenderness, no other conspicuous deformities noted NEUROLOGIC : Coherent, chronic left ptosis, chronic facial asymmetry, gait and stance not assessed Results & Data Results & Data Vital Signs (Past 12 Hours) Vital Signs Temp Pulse Resp BP BP Pulse Ox O2 Del Method 07/03/24 20:12 82 18 91 Room Air 07/03/24 20:00 87 18 101/62 90 Room Air 07/03/24 19:55 85 07/03/24 19:32 103/75 07/03/24 19:30 84 22 92 Room Air 07/03/24 19:21 89 20 91 Room Air 07/03/24 19:13 116/71 07/03/24 19:12 93 H 24 90 Room Air 07/03/24 19:09 89 21 91 Room Air 07/03/24 18:21 86 22 07/03/24 18:09 85 17 07/03/24 17:58 Room Air 07/03/24 17:51 86 19 94 Room Air 07/03/24 17:45 105/69 07/03/24 17:24 78 21 96 Nasal Cannula 07/03/24 17:18 79 23 95 Nasal Cannula 07/03/24 17:00 97/65 L 07/03/24 16:43 89 L Nasal Cannula 07/03/24 16:39 99 H 15 91 Room Air 07/03/24 16:22 97 H 07/03/24 16:21 93 H 22 07/03/24 16:15 90 23 07/03/24 16:00 91 H 20 91 Room Air 07/03/24 15:39 104/65 07/03/24 14:50 36.8 C 111 H 20 122/80 92 Room Air O2 Flow Rate 07/03/24 20:12 07/03/24 20:00 07/03/24 19:55 07/03/24 19:32 07/03/24 19:30 07/03/24 19:21 07/03/24 19:13 07/03/24 19:12 07/03/24 19:09 07/03/24 18:21 07/03/24 18:09 07/03/24 17:58 07/03/24 17:51 07/03/24 17:45 07/03/24 17:24 2 07/03/24 17:18 2 07/03/24 17:00 07/03/24 16:43 0 07/03/24 16:39 07/03/24 16:22 07/03/24 16:21 07/03/24 16:15 07/03/24 16:00 07/03/24 15:39 07/03/24 14:50 Laboratory Results Laboratory Results WBC 12.89 K/ul (4.8-10.8) H 07/03/24 15:36 RBC 3.75 M/uL (4.20-5.40) L 07/03/24 15:36 Hgb 11.5 g/dl (12.0-16.0) L 07/03/24 15:36 Hct 34.5 % (37.0-47.0) L 07/03/24 15:36 MCV 92.0 fL (80.0-100.0) 07/03/24 15:36 MCH 30.7 pg (25.0-34.0) 07/03/24 15:36 MCHC 33.3 g/dL (32.0-36.0) 07/03/24 15:36 RDW Std Deviation 49.8 fL (36.4-46.3) H 07/03/24 15:36 RDW Coeff of Suresh 14.6 % (11.5-14.5) H 07/03/24 15:36 Plt Count 179 K/uL (130-400) 07/03/24 15:36 MPV 10.1 fL (9.4-12.4) 07/03/24 15:36 Immature Gran % (Auto) 6.5 % 07/03/24 15:36 Neut % (Auto) 86.2 % 07/03/24 15:36 Lymph % (Auto) 6.8 % 07/03/24 15:36 Adams % (Auto) 0.2 % 07/03/24 15:36 Eos % (Auto) 0.1 % 07/03/24 15:36 Baso % (Auto) 0.2 % 07/03/24 15:36 Neut # (Auto) 11.11 K/uL (1.40-6.50) H 07/03/24 15:36 Lymph # (Auto) 0.88 K/uL (1.20-3.40) L 07/03/24 15:36 Adams # (Auto) 0.03 K/uL (0.11-0.59) L 07/03/24 15:36 Eos # (Auto) 0.01 K/uL (0.00-0.50) 07/03/24 15:36 Baso # (Auto) 0.02 K/uL (0.00-0.20) 07/03/24 15:36 Immature Gran # (Auto) 0.84 K/uL (0.01-0.20) H 07/03/24 15:36 RBC Morphology Unremarkable 07/03/24 15:36 Sodium 137 mmol/L (136-145) 07/03/24 15:36 Potassium 3.3 mmol/L (3.5-5.1) L 07/03/24 15:36 Chloride 107 mmol/L (98-107) 07/03/24 15:36 Carbon Dioxide 25 mmol/L (21-32) 07/03/24 15:36 Anion Gap 5 (3-11) 07/03/24 15:36 BUN 13 mg/dl (6-23) 07/03/24 15:36 Creatinine 0.74 mg/dl (0.6-1.2) 07/03/24 15:36 Est Cr Clr Drug Dosing 110.1 ml/min 07/03/24 15:36 eGFR 99.12 07/03/24 15:36 BUN/Creatinine Ratio 17.6 (10-20) 07/03/24 15:36 Glucose 97 mg/dl (70-99(Fasting)) 07/03/24 15:36 Calcium 8.3 mg/dl (8.6-10.3) L 07/03/24 15:36 Magnesium 1.7 mg/dl (1.7-2.4) 07/03/24 15:36 Total Bilirubin 2.9 mg/dl (0.2-1.0) H 07/03/24 15:36 AST 33 U/L (13-39) 07/03/24 15:36 ALT 40 U/L (7-52) 07/03/24 15:36 Alkaline Phosphatase 62 U/L (34-104) 07/03/24 15:36 Troponin I High Sens 7.0 pg/ml (0-14) 07/03/24 15:36 Total Protein 5.3 gm/dl (6.0-8.3) L 07/03/24 15:36 Albumin 3.5 gm/dl (3.4-5.0) 07/03/24 15:36 Globulin 1.8 gm/dl (2.5-4.0) L 07/03/24 15:36 Albumin/Globulin Ratio 1.9 (0.9-2) 07/03/24 15:36 TSH 3.024 uIu/ml (0.300-4.500) 07/03/24 15:36 Urine Color Yellow 07/03/24 18:30 Urine Appearance Clear (Clear) 07/03/24 18:30 Urine pH 5.5 (4.5-7.5) 07/03/24 18:30 Ur Specific [place] 1.028 (1.000-1.030) 07/03/24 18:30 Urine Protein Negative (Negative) 07/03/24 18:30 Urine Glucose (UA) Negative (Negative) 07/03/24 18:30 Urine Ketones Negative (Negative) 07/03/24 18:30 Urine Blood Negative (Negative) 07/03/24 18:30 Urine Nitrite Negative (Negative) 07/03/24 18:30 Urine Bilirubin Negative (Negative) 07/03/24 18:30 Urine Urobilinogen Negative (Negative) 07/03/24 18:30 Ur Leukocyte Esterase Trace (Negative) H 07/03/24 18:30 Urine WBC (Auto) 0-5 /hpf (0-5) 07/03/24 18:30 Urine RBC (Auto) 0-2 /hpf (0-2) 07/03/24 18:30 U Hyaline Cast (Auto) 0-2 /lpf (0-2) 07/03/24 18:30 U Epithel Cells (Auto) 0-2 /hpf (0-2) 07/03/24 18:30 Urine Bacteria (Auto) None Seen (None Seen) 07/03/24 18:30 Adenovirus (PCR) Not Detected (NotDetected) 07/03/24 15:37 B. pertussis DNA (PCR) Not Detected (NotDetected) 07/03/24 15:37 B.parapertussis DNA PCR Not Detected (NotDetected) 07/03/24 15:37 C. pneumoniae DNA (PCR) Not Detected (NotDetected) 07/03/24 15:37 Coronavirus OC43 (PCR) Not Detected (NotDetected) 07/03/24 15:37 Coronavirus HKU1 (PCR) Not Detected (NotDetected) 07/03/24 15:37 Coronavirus 229E (PCR) Not Detected (NotDetected) 07/03/24 15:37 SARS-CoV-2 (PCR) Not Detected (NotDetected) 07/03/24 15:37 Coronavirus NL63 (PCR) Not Detected (NotDetected) 07/03/24 15:37 Human Metapneumovir PCR Not Detected (NotDetected) 07/03/24 15:37 Influenza Type A (PCR) Not Detected (NotDetected) 07/03/24 15:37 Influenza Type B (PCR) Not Detected (NotDetected) 07/03/24 15:37 M. pneumoniae (PCR) Not Detected (NotDetected) 07/03/24 15:37 Parainfluenza 1 (PCR) Not Detected (NotDetected) 07/03/24 15:37 Parainfluenza 2 (PCR) Not Detected (NotDetected) 07/03/24 15:37 Parainfluenza 3 (PCR) Not Detected (NotDetected) 07/03/24 15:37 Parainfluenza 4 (PCR) Not Detected (NotDetected) 07/03/24 15:37 RSV (PCR) Not Detected (NotDetected) 07/03/24 15:37 Entero/Rhino (PCR) Not Detected (NotDetected) 07/03/24 15:37 Impressions Chest X-Ray 07/03/24 14:58 XR chest 1V portable CLINICAL HISTORY: weakness COMPARISON STUDY: Chest radiograph August 18, 2023. FINDINGS: Right subclavian Eaqsje-c-Kahl is in place. Tip projects over the proximal right atrium. Lung volumes are normal. Lungs are clear. There is no pneumothorax or pleural effusion. Cardiac size is normal. Mediastinal contours are normal. There is no evidence for pulmonary edema. IMPRESSION: No acute cardiopulmonary findings. ACT 112: Negative or not required by law. Electronically signed by: Hermilo Garcia M.D. 07/03/2024 4:46 PM Head CTA 07/03/24 15:10 CT angio head wo/w CLINICAL HISTORY: stroke like symptoms, hx of metastatic breast CA COMPARISON STUDY: MRI of the brain April 08, 2024. TECHNIQUE: Unenhanced and arterial phase imaging of the head was performed. Intravenous injection of 119 cc of Optiray 320 IV was uneventful. Automated exposure control was utilized for the study. A dose lowering technique was utilized adhering to the principles of ALARA. FINDINGS: No acute intracranial hemorrhage, midline shift or mass effect is present. Ventricular system is normal. Basal cisterns are patent. There are no extra-axial collections. Tran-white differentiation is maintained. There are no findings to suggest acute dural sinus thrombosis or acute territorial infarct. Punctate hyperdense focus within the left posterior brayden on image 11 of 28 is noted as well as a punctate hyperdense focus within the vermis on image 9 of 20. These were likely present on [facility] of May 14, 2024. There is moderate narrowing at the takeoff of the left middle cerebral artery. No large vessel occlusion is identified. There are no intracranial aneurysm. Posterior circulation is intact. The left parietal lobe enhancing lesion on prior MRI of the brain is not well visualized on this exam. IMPRESSION: 1. No acute intracranial findings. 2. No large vessel occlusion or intracranial aneurysm. Moderate narrowing at the takeoff of the left middle cerebral artery. 3. The enhancing lesion within the left parietal lobe on previous MRI is not well visualized. This favors a treatment response although could be related to CT technique. 4. Punctate hyperdense foci within the left posterior brayden and cerebellar vermis. These are of questionable significance and were likely present on CT of May 14, 2024. These can be assessed on follow-up exams. ACT 112: Negative or not required by law. Electronically signed by: Hermilo Garcia M.D. 07/03/2024 5:55 PM Neck CTA 07/03/24 15:10 CT ANGIOGRAPHY OF THE NECK WITH CONTRAST CLINICAL HISTORY: stroke like symptoms COMPARISON STUDY: PET CT March 30, 2024. Technique: CT angiography of the carotid and vertebral arteries was obtained using Optiray and 3D reconstruction on an independent workstation. NASCET criteria was utilized. Automated exposure control was utilized for the study. A dose lowering technique was utilized adhering to the principles of ALARA. Findings: Right subclavian Pyftua-f-Dwns is partially imaged. The FDG avid left supraclavicular lymph node on prior PET/CT has decreased in size. This suggests a treatment response. The bilateral common carotid, cervical internal carotid and vertebral arteries are patent. There is no stenosis, dissection or aneurysm within the neck. Vertebral arteries are patent. Right vertebral artery is dominant. CTA of the head will be reported separately. Ground glass opacities within visualized portions of the chest are noted. IMPRESSION: 1. No stenosis or dissection within the bilateral common carotid, cervical internal carotid or vertebral arteries. 2. Nonspecific groundglass opacities within visualized portions of the lung apices. ACT 112: Negative or not required by law. Electronically signed by: Hermilo Garcia M.D. 07/03/2024 6:15 PM Diagnostic Findings EKG as per my interpretation :Rate 95, NSR, LAD, LAFB, T wave abnormalities in leads
[2024-07-03 21:34] LABS: Reticulocyte % 2.48 % (0.50-2.00)
[2024-07-03] MEDS: GADOBUTROL 65ML VIAL IV ONE (21:57)
[2024-07-03] MEDS: NSS + 20MEQ KCL 20 MEQ/1,000 ML BAG IV ONE (22:22)
[2024-07-03 22:23] LABS: Folate (Folic Acid),Ser orPlas 4.91 ng/ml (>5.38)
[2024-07-03] MEDS: MAGNESIUM SULFATE / D5W 1 GM/100 ML BAG IV SCH (22:24)
[2024-07-03] MEDS: ACETAMINOPHEN 325 MG TAB PO PRN (22:32)
--- NOTE | 2024-07-04 01:54 | Magnetic Resonance Report ---
Exam(s): MRI HEAD W/WO Contrast EXAM: MR Head Without and With Intravenous Contrast CLINICAL HISTORY: Reason for exam: sanchez, hx brain mets. TECHNIQUE: Magnetic resonance images of the head/brain without and with intravenous contrast in multiple planes. CONTRAST: Contrast must be dictated COMPARISON: Prior brain MRI from April 08, 2024. FINDINGS: Brain: There is a nodular enhancing mass in the left parietal subcortical white matter measuring 6.1 x 6.0 x 3.7 mm. Minimal nonspecific white matter changes. Tiny remote ischemic injury of the right cerebellum. The flow voids at the base of the brain are intact. The dural venous sinuses are patent. No hemorrhage. No acute infarct. The flow voids of the base of the head are intact. Ectasia of the trigeminal cisterns, left greater than right. Ventricles: Unremarkable. No ventriculomegaly. Bones/joints: Unremarkable. No acute fracture. Sinuses: Unremarkable as visualized. No acute sinusitis. Mastoid air cells: Unremarkable as visualized. No mastoid effusion. Orbits: Unremarkable as visualized. IMPRESSION: Single enhancing nodular lesion in the left parietal lobe concerning for metastatic disease with significant interval decrease in size since the prior examination. Electronically signed by: Belle Vuong MD 07/04/24 01:53 AM
[2024-07-04] MEDS: KETOROLAC TROMETHAMINE 15 MG/ML VIAL IV PRN (04:58)
[2024-07-04 05:03] LABS: Hematocrit (blood only) 32.2 % (37.0-47.0); Hemoglobin 10.9 g/dl (12.0-16.0); Mean Corpuscular Hgb Conc 33.9 g/dL (32.0-36.0); Mean Corpuscular Volume 91.5 fL (80.0-100.0); Mean Platelet Volume 10.2 fL (9.4-12.4); Platelet Count 155 K/uL (130-400); RDW Coefficient of Variation 14.8 % (11.5-14.5); RDW Standard Deviation 49.8 fL (36.4-46.3); Red Blood Count 3.52 M/uL (4.20-5.40); White Blood Count 7.38 K/ul (4.8-10.8)
[2024-07-04 05:09] LABS: BUN Creatinine Ratio 12.9 (10-20); Calcium 7.9 mg/dl (8.6-10.3); Creatinine Clr Calc Pharmacy 116.4 ml/min; Potassium 3.6 mmol/L (3.5-5.1)
[2024-07-04 05:15] LABS: ALC (manual) 1.03 K/uL (1.2-3.4); ANC (manual) 5.98 K/uL (1.4-6.5); Lymphocytes # (manual) 1.03 K/uL (1.2-3.4); Lymphocytes % (manual) 14 %; Metamyelocytes % (manual) 4 %; Monocytes # (manual) 0.07 K/uL (0.11-0.59); Monocytes % (manual) 1 %; Neutrophils # (manual) 5.98 K/uL (1.40-6.50); Neutrophils % (manual) 81 %
[2024-07-04] MEDS: PANTOprazole 40 MG TAB PO SCH (05:56)
[2024-07-04] MEDS: LEVOTHYROXINE SODIUM 137 MCG TABLET PO SCH (05:56)
[2024-07-04 11:07] LABS: Adenovirus F 40/41 PCR Not Detected (NotDetected); Astrovirus PCR Not Detected (NotDetected); Campylobacter PCR Not Detected (NotDetected); Cryptosporidium PCR Not Detected (NotDetected); Cyclospora cayetanensis PCR Not Detected (NotDetected); Entamoeba histolytica PCR Not Detected (NotDetected); Enteroaggregative E.coli(EAEC) Not Detected (NotDetected); Enteropathogenic E.coli (EPEC) Not Detected (NotDetected); Enterotoxigenic E.coli (ETEC) Not Detected (NotDetected); Giardia lamblia PCR Not Detected (NotDetected); Norovirus GI/GII PCR Not Detected (NotDetected); Plesiomonas shigelloides PCR Not Detected (NotDetected); Rotavirus A PCR Not Detected (NotDetected); Salmonella PCR Not Detected (NotDetected); Sapovirus PCR Not Detected (NotDetected); Shiga-like Toxin E.coli (STEC) Not Detected (NotDetected); Shigella/Enteroinvasive E.coli Not Detected (NotDetected); Vibrio cholerae PCR Not Detected (NotDetected); Vibrio species PCR Not Detected (NotDetected); Yersinia enterocolitica PCR Not Detected (NotDetected)
--- NOTE | 2024-07-04 14:26 | Electrocardiogram Report ---
Test Reason : Blood Pressure : */* mmHG Vent. Rate : 95 BPM Atrial Rate : 95 BPM P-R Int : 168 ms QRS Dur : 86 ms QT Int : 328 ms P-R-T Axes : 34 -18 20 degrees QTcB Int : 412 ms Normal sinus rhythm Cannot rule out Anterior infarct (cited on or before 18-Aug-2023) Abnormal ECG When compared with ECG of 18-Aug-2023 16:03, No significant change Confirmed by Tavares Morales ([id number]) on 07/04/2024 2:25:59 PM Referred By: Confirmed By: Tavares Morales
--- NOTE | 2024-07-04 14:27 | Hospitalist Progress Note ---
Date of Service July 04, 2024 Assessment & Plan (1) Dizziness: Plan: Secondary to dehydration and nausea with less fluid intake following chemotherapy Dizziness with blurred vision- resolved now Will get orthostatic vitals Cautious amount of intravenous fluid Advised to drink more fluid as well Will monitor electrolytes and kidney function Possible orthostasis given low BP possibly from diarrheal illness possibly from chemotherapy rule out infectious causes Rule out progression of brain mets History metastatic breast cancer status post surgery/radiation ongoing chemotherapy (2) Breast cancer metastasized to brain: Plan: Has been ongoing chemo and radiation treatment MRI of the brain showed decrease in size of the left parietal lobe nodule Complains some headache and will give symptomatic management Plan Other significant medical conditions are as below: GERD, stable Hypothyroidism, euthyroid as of today's TSH New onset anemia, no overt source of bleed, FOBT done at the ER was negative, possibly from chemotherapy Serum iron is normal and B12 and folate level are normal to DVT prophylaxis. SCDs re: history of brain mets Full code Admission and Anticipated Discharge Date Admission Date: July 03, 2024 Subjective 07/04/2024 The patient was seen and examined in telemetry unit in presence of the She has been complaining of episodes of dizziness associated with unsteadiness with headache and visual symptoms since 07/03/2024 She got the chemotherapy last Friday for metastatic breast cancer Denies any significant symptoms at rest except some headache without any other n eurological symptoms Has been feeling little better since admission Review of Systems Review of Systems: all systems reviewed and are unremarkable except as noted below Physical Exam Physical Exam: lying in bed without any acute distress except some headache Constitutional: well developed, well nourished, + ill appearing and + obese Eyes: PERRL, conjunctivae normal, anicteric sclerae ENMT: external ear and nose normal, oropharynx normal Neck: trachea midline, no thyromegaly Respiratory: no respiratory distress Auscultation: lungs clear to auscultation bilaterally Cardiovascular: Rate/Rhythm: regular rate and regular rhythm; not tachycardic Heart Sounds: normal S1 and normal S2; no murmur Extremities: no edema Gastrointestinal (Abdomen): Inspection/Auscultation: normal bowel sounds; abdomen not distended Percussion/Palpation: abdomen soft; abdomen nontender Musculoskeletal: no acute arthritis involving any of the joint Neurologic: normal touch/pain/proprioception and moves all extremities; no focal motor deficits and not confused complains to headache without any associated neurological symptoms Lymphatic: no cervical or axillary lymphadenopathy Results & Data Results & Data Vital Signs (Past 12 Hours) Vital Signs Temp Pulse Pulse Resp BP BP Pulse Ox 07/04/24 11:14 36.7 C 94 H 18 103/71 93 07/04/24 08:14 36.8 C 84 18 109/72 92 07/04/24 08:00 81 07/04/24 04:47 36.6 C 72 14 109/71 94 07/04/24 04:21 76 18 110/67 91 O2 Del Method 07/04/24 11:14 Room Air 07/04/24 08:14 Room Air 07/04/24 08:00 07/04/24 04:47 Room Air 07/04/24 04:21 Laboratory Results Short CBC 07/03/24 07/04/24 Range/Units 15:36 04:25 WBC 12.89 H 7.38 (4.8-10.8) K/ul Hgb 11.5 L 10.9 L (12.0-16.0) g/dl Hct 34.5 L 32.2 L (37.0-47.0) % Plt Count 179 155 (130-400) K/uL BMP 07/03/24 07/04/24 15:36 04:25 Sodium 137 139 Potassium 3.3 L 3.6 Chloride 107 108 H Carbon Dioxide 25 25 BUN 13 9 Creatinine 0.74 0.70 Glucose 97 89 Calcium 8.3 L 7.9 L Liver Function 07/03/24 Range/Units 15:36 Total Bilirubin 2.9 H (0.2-1.0) mg/dl AST 33 (13-39) U/L ALT 40 (7-52) U/L Alkaline Phosphatase 62 (34-104) U/L Albumin 3.5 (3.4-5.0) gm/dl Urine 07/03/24 Range/Units 18:30 Urine Color Yellow Urine Appearance Clear (Clear) Urine pH 5.5 (4.5-7.5) Ur Specific [place] 1.028 (1.000-1.030) Urine Protein Negative (Negative) Urine Glucose (UA) Negative (Negative) Medications Administered Current Inpatient Medications Acetaminophen (Acetaminophen 325 Mg Tab) 650 mg PO QID PRN PRN Reason: pain/fever Stop: 08/02/24 20:38 Last Admin: 07/04/24 11:29 Dose: 650 mg Promethazine HCl (Phenergan) 6.25 mg in 50.25 mls @ 201 mls/hr IV Q6H PRN PRN Reason: Nausea And Vomiting Stop: 08/02/24 20:38 Ketorolac Tromethamine (Ketorolac Tromethamine 15 Mg/Ml Vial) 15 mg IV Q6H PRN PRN Reason: Pain Stop: 07/08/24 20:38 Last Admin: 07/04/24 04:58 Dose: 15 mg Levothyroxine Sodium (Levothyroxine Sodium 137 Mcg Tablet) 137 mcg PO DAILYBB [facility] Stop: 08/03/24 06:29 Last Admin: 07/04/24 05:56 Dose: 137 mcg Lorazepam (Lorazepam 0.5 Mg Tab) 0.5 mg PO TID PRN PRN Reason: Anxiety Stop: 08/02/24 20:38 Pantoprazole Sodium (Pantoprazole 40 Mg Tab) 40 mg PO DAILYBB [facility] Stop: 08/03/24 06:29 Last Admin: 07/04/24 05:56 Dose: 40 mg
[2024-07-05] MEDS: HEPARIN 100 UNIT/ML 5ML FLUSH FLUSH PRN (05:45)
[2024-07-05 06:11] LABS: Hemoglobin 11.6 g/dl (12.0-16.0); Mean Corpuscular Hemoglobin 30.4 pg (25.0-34.0); Mean Corpuscular Hgb Conc 33.1 g/dL (32.0-36.0); Mean Corpuscular Volume 91.9 fL (80.0-100.0); Platelet Count 178 K/uL (130-400); RDW Coefficient of Variation 14.5 % (11.5-14.5); RDW Standard Deviation 48.7 fL (36.4-46.3); Red Blood Count 3.81 M/uL (4.20-5.40); White Blood Count 1.86 K/ul (4.8-10.8)
[2024-07-05 06:28] LABS: BUN Creatinine Ratio 10.8 (10-20); Calcium 8.5 mg/dl (8.6-10.3); Creatinine Clr Calc Pharmacy 124.9 ml/min; Magnesium 1.8 mg/dl (1.7-2.4); Phosphorus 1.7 mg/dl (2.5-4.9); Potassium 3.9 mmol/L (3.5-5.1)
[2024-07-05 07:29] LABS: ANC (manual) 0.71 K/uL (1.4-6.5); Basophils # (manual) 0.04 K/uL (0-0.2); Basophils % (manual) 2 %; Eosinophils # (manual) 0.06 K/uL (0-0.50); Eosinophils % (manual) 3 %; Lymphocytes % (manual) 54 %; Monocytes # (manual) 0.06 K/uL (0.11-0.59); Monocytes % (manual) 3 %; Neutrophils # (manual) 0.71 K/uL (1.40-6.50); Neutrophils % (manual) 38 %; Tear Drop Cells 1+
[2024-07-05] MEDS ORDERED: POTASSIUM PHOS 3 MMOL/1 ML INFUSION IV STA (14:32)
[2024-07-05] MEDS: SODIUM CHLORIDE 0.9% 500 ML IV SCH (14:42)
[2024-07-05] MEDS: POTASSIUM PHOSPHATE 30 MMOL in SODIUM CHLORIDE 0.9% 500 ML IV ONE (15:04)
[2024-07-05] MEDS: D5NSS + 20MEQ KCL 20 MEQ/1,000 ML BAG IV SCH (15:05)
--- NOTE | 2024-07-05 15:06 | Hospitalist Progress Note ---
Date of Service July 05, 2024 Assessment & Plan (1) Orthostatic hypotension: (2) Chemotherapy-induced diarrhea: (3) Chemotherapy induced neutropenia: (4) Breast cancer metastasized to brain: (5) Hypothyroidism: Plan Patient presents with dizziness most likely due to orthostasis and hypotension resulting from volume depletion dehydration from diarrhea induced from her chemotherapy. Patient now neutropenic. She did get filgrastim as an outpatient. Additional fill gastrum today IV fluid bolus with additional IV fluids due to her excessive diarrhea. At this time I believe that her diarrheal illness is from the chemotherapy does not appear that she has an acute chemo induced colitis, she is afebrile, will continue to monitor Monitor electrolytes, replace potassium and phosphorus with excessive loss associated with her diarrhea Continue other medications as prescribed 53 minutes spent on review of records, coordinating care, evaluation of patient at bedside Admission and Anticipated Discharge Date Admission Date: July 03, 2024 Subjective Patient still not much of an appetite. Also having frequent stools. Last chemotherapy session was on Friday. Physical Exam Physical Exam: Constitutional: Alert, moderately ill in appearance HEENT: Mucous membranes moist. Chemo induced alopecia Lungs: Clear to auscultation, decreased, no wheezes rales or rhonchi CV: S1-S2, regular Abdomen: Soft, nontender, nondistended Extremities: No significant edema Neuro: No focal deficits Psych: Cooperative, normal mood Results & Data Results & Data Vital Signs (Past 12 Hours) Vital Signs Temp Pulse Resp BP Pulse Ox O2 Del Method 07/05/24 11:22 36.9 C 100 H 18 104/70 92 Room Air 07/05/24 07:29 37.1 C 91 H 18 116/77 94 Room Air 07/05/24 03:20 36.9 C 92 H 18 124/81 94 Room Air Diagnostic Findings Reviewed imaging, laboratory and diagnostic studies. Pertinent findings as below. WBCs 1.86, ANC 0.71 Hemoglobin 11.6 Phosphorus 1.7 Magnesium 1.8 Patient with reported 11+ stools today Reviewed outside EMR, reviewed chemotherapy treatments, reviewed hematology/oncology notations
[2024-07-05] MEDS: FILGRASTIM 480 MCG/1.6 ML VIAL SC SCH (16:08)
[2024-07-05] MEDS: PROMETHAZINE 6.25 MG/50.25 ML BAG IV PRN (19:14)
[2024-07-06 06:50] LABS: Hematocrit (blood only) 32.9 % (37.0-47.0); Hemoglobin 11.3 g/dl (12.0-16.0); Mean Corpuscular Hgb Conc 34.3 g/dL (32.0-36.0); Mean Corpuscular Volume 90.4 fL (80.0-100.0); Mean Platelet Volume 10.3 fL (9.4-12.4); Platelet Count 166 K/uL (130-400); RDW Coefficient of Variation 14.4 % (11.5-14.5); RDW Standard Deviation 47.8 fL (36.4-46.3); Red Blood Count 3.64 M/uL (4.20-5.40); White Blood Count 4.79 K/ul (4.8-10.8)
[2024-07-06 06:57] LABS: BUN Creatinine Ratio 7.1 (10-20); Calcium 8.5 mg/dl (8.6-10.3); Creatinine Clr Calc Pharmacy 116.5 ml/min; Magnesium 1.5 mg/dl (1.7-2.4); Phosphorus 2.1 mg/dl (2.5-4.9); Potassium 4.1 mmol/L (3.5-5.1)
[2024-07-06] MEDS ORDERED: POTASSIUM PHOS 3 MMOL/1 ML INFUSION IV STA (07:02)
[2024-07-06 07:37] LABS: ALC (manual) 1.53 K/uL (1.2-3.4); ANC (manual) 1.77 K/uL (1.4-6.5); Basophils # (manual) 0.14 K/uL (0-0.2); Basophils % (manual) 3 %; Eosinophils # (manual) 0.05 K/uL (0-0.50); Eosinophils % (manual) 1 %; Lymphocytes # (manual) 1.53 K/uL (1.2-3.4); Lymphocytes % (manual) 32 %; Metamyelocytes # (manual) 0.24 K/uL (0-0); Metamyelocytes % (manual) 5 %; Monocytes # (manual) 0.96 K/uL (0.11-0.59); Monocytes % (manual) 20 %; Myelocytes % (manual) 2 %; Neutrophils # (manual) 1.77 K/uL (1.40-6.50); Neutrophils % (manual) 37 %; RBC Morphology Unremarkable
[2024-07-06] MEDS: POTASSIUM PHOSPHATE 30 MMOL in SODIUM CHLORIDE 0.9% 500 ML IV ONE (07:50)
[2024-07-06] MEDS: CALCIUM GLUCONATE 1,000 MG/60 ML BAG IV SCH (07:50)
[2024-07-06] MEDS: MAGNESIUM SULFATE / D5W 1 GM/100 ML BAG IV SCH (07:55)
--- NOTE | 2024-07-06 13:12 | Hospitalist Progress Note ---
Date of Service July 06, 2024 Assessment & Plan (1) Chemotherapy-induced diarrhea: (2) Electrolyte abnormality: (3) Chemotherapy induced neutropenia: (4) Breast cancer metastasized to brain: (5) Orthostatic hypotension: (6) Hypothyroidism: Plan Patient initially with orthostasis due to volume depletion associated with diarrhea primary chemotherapy. This is improved, however continued with diarrhea. Replace electrolytes Continue IV fluid resuscitation Discontinue Neupogen, ANC has improved Continue to monitor stools, seems to be improving, trial of Imodium Encourage diet If electrolytes improved and stools decreased anticipate discharge tomorrow Admission and Anticipated Discharge Date Admission Date: July 05, 2024 Subjective Patient continues with numerous loose stools. Is feeling a bit better and eating a little bit better Physical Exam Physical Exam: Constitutional: Alert, less ill in appearance HEENT: Mucous membranes moist. Chemotherapy induced alopecia Lungs: Clear to auscultation, decreased, no wheezes rales or rhonchi CV: S1-S2, regular Abdomen: Soft, nontender, nondistended Extremities: No significant edema Neuro: No focal deficits Psych: Cooperative, normal mood Results & Data Results & Data Vital Signs (Past 12 Hours) Vital Signs Temp Pulse Resp BP Pulse Ox O2 Del Method 07/06/24 11:28 37.2 C 91 H 18 102/69 93 Room Air 07/06/24 07:55 36.8 C 93 H 18 112/74 93 Room Air 07/06/24 03:30 37.3 C 89 18 110/75 91 Room Air Diagnostic Findings Reviewed imaging, laboratory and diagnostic studies. Pertinent findings as below. WBCs 4.7, ANC 1.77, improved Hemoglobin 11.3, stable Creatinine 0.7 Calcium 8.5 Phosphorus 2.1 Magnesium 1.5
[2024-07-06] MEDS ORDERED: LOPERAMIDE HCL 2 MG CAP PO PRN (13:17)
[2024-07-06] MEDS: LOPERAMIDE HCL 2 MG CAP PO STA (13:51)
[2024-07-06] MEDS: ONDANSETRON INJ 2 MG/ML 2 ML VIAL IV PRN (16:47)
[2024-07-06] MEDS: LORazepam 0.5 MG TAB PO PRN (22:50)
[2024-07-07 07:40] VITALS: O2SAT 91
[2024-07-07 08:04] LABS: Phosphorus 3.1 mg/dl (2.5-4.9)
[2024-07-07 08:05] LABS: BUN Creatinine Ratio 3.7 (10-20); Calcium 8.9 mg/dl (8.6-10.3); Creatinine Clr Calc Pharmacy 100.1 ml/min; Magnesium 1.9 mg/dl (1.7-2.4); Potassium 4.3 mmol/L (3.5-5.1)
[2024-07-07 08:25] LABS: Hematocrit (blood only) 34.4 % (37.0-47.0); Hemoglobin 11.4 g/dl (12.0-16.0); Mean Corpuscular Hemoglobin 30.7 pg (25.0-34.0); Mean Corpuscular Hgb Conc 33.1 g/dL (32.0-36.0); Mean Corpuscular Volume 92.7 fL (80.0-100.0); Mean Platelet Volume 10.1 fL (9.4-12.4); Platelet Count 188 K/uL (130-400); RDW Coefficient of Variation 14.9 % (11.5-14.5); RDW Standard Deviation 49.9 fL (36.4-46.3); Red Blood Count 3.71 M/uL (4.20-5.40)
[2024-07-07 09:33] LABS: Nucleated RBC % (auto) 0.3 %; White Blood Count 29.56 K/ul (4.8-10.8)
[2024-07-07 09:37] LABS: ALC (manual) 4.14 K/uL (1.2-3.4); ANC (manual) 17.74 K/uL (1.4-6.5); Basophils % (manual) 1 %; Blast Cells % (manual) 1 %; Eosinophils % (manual) 1 %; Lymphocytes # (manual) 4.14 K/uL (1.2-3.4); Lymphocytes % (manual) 14 %; Metamyelocytes # (manual) 2.96 K/uL (0-0); Metamyelocytes % (manual) 10 %; Monocytes # (manual) 1.18 K/uL (0.11-0.59); Monocytes % (manual) 4 %; Myelocytes # (manual) 1.48 K/uL (0-0); Myelocytes % (manual) 5 %; Neutrophils # (manual) 17.74 K/uL (1.40-6.50); Neutrophils % (manual) 60 %; Promyelocytes # (manual) 1.18 K/uL (0-0); Promyelocytes % (manual) 4 %; Toxic Granulation 1+
[2024-07-07 11:13] VITALS: BP 108/75; PULSE 108; RESP 18; TEMP 97.5
--- NOTE | 2024-07-07 13:13 | Hospitalist Progress Note ---
Date of Service July 07, 2024 Assessment & Plan (1) Dizziness: Plan: Secondary to dehydration and nausea with less fluid intake following chemotherapy Dizziness with blurred vision- resolved now Will get orthostatic vitals Cautious amount of intravenous fluid Advised to drink more fluid as well Will monitor electrolytes and kidney function Possible orthostasis given low BP possibly from diarrheal illness possibly from chemotherapy rule out infectious causes Rule out progression of brain mets History metastatic breast cancer status post surgery/radiation ongoing chemotherapy Denies any more dizziness with ambulation Blood pressure remains controlled though at the lower side She was advised to drink more fluid Electrolyte imbalance Secondary to diarrhea and is complicated by chemotherapy Stool culture and C. difficile have been negative Electrolytes are normalized and the diarrhea is well-controlled She will be discharged home this afternoon (2) Breast cancer metastasized to brain: Plan: Has been ongoing chemo and radiation treatment MRI of the brain showed decrease in size of the left parietal lobe nodule Complains some headache and will give symptomatic management she will have follow-up with her oncologist as an outpatient Neutropenia Received Neupogen with improvement of the neutrophil count and also CBC Plan Other significant medical conditions are as below: GERD, stable Hypothyroidism, euthyroid as of today's TSH New onset anemia, no overt source of bleed, FOBT done at the ER was negative, possibly from chemotherapy Serum iron is normal and B12 and folate level are normal to DVT prophylaxis. SCDs re: history of brain mets Full code Admission and Anticipated Discharge Date Admission Date: July 05, 2024 Subjective 07/04/2024 The patient was seen and examined in telemetry unit in presence of the She has been complaining of episodes of dizziness associated with unsteadiness with headache and visual symptoms since 07/03/2024 She got the chemotherapy last Friday for metastatic breast cancer Denies any significant symptoms at rest except some headache without any other neurological symptoms Has been feeling little better since admission 07/07/2024 The patient was seen and examined in telemetry unit She has been feeling a lot better and the diarrhea is controlled Has been ambulating without any difficulties She seems to be at her baseline and wants to go home Review of Systems Review of Systems: All systems reviewed and are unremarkable except as noted below Physical Exam Physical Exam: lying in bed without any acute distress except some headache Constitutional: well developed, well nourished, + ill appearing and + obese Eyes: PERRL, conjunctivae normal, anicteric sclerae ENMT: external ear and nose normal, oropharynx normal Neck: trachea midline, no thyromegaly Respiratory: no respiratory distress Auscultation: lungs clear to auscultation bilaterally Cardiovascular: Rate/Rhythm: regular rate and regular rhythm; not tachycardic Heart Sounds: normal S1 and normal S2; no murmur Extremities: no edema Gastrointestinal (Abdomen): Inspection/Auscultation: normal bowel sounds; abdomen not distended Percussion/Palpation: abdomen soft; abdomen nontender Neurologic: normal touch/pain/proprioception and moves all extremities; no focal motor deficits and not confused Lymphatic: no cervical or axillary lymphadenopathy Results & Data Results & Data Vital Signs (Past 12 Hours) Vital Signs Temp Pulse Resp BP Pulse Ox O2 Del Method 07/07/24 11:10 36.4 C L 108 H 18 108/75 91 Room Air 07/07/24 09:46 Room Air 07/07/24 07:37 36.6 C 95 H 17 104/71 91 Room Air 07/07/24 03:47 36.9 C 99 H 16 108/73 90 Room Air Laboratory Results Short CBC 07/07/24 Range/Units 06:42 WBC 29.56 H (4.8-10.8) K/ul Hgb 11.4 L (12.0-16.0) g/dl Hct 34.4 L (37.0-47.0) % Plt Count 188 (130-400) K/uL BMP 07/07/24 06:42 Sodium 138 Potassium 4.3 Chloride 107 Carbon Dioxide 27 BUN 3 L Creatinine 0.81 Glucose 91 Calcium 8.9 Medications Administered Current Inpatient Medications Acetaminophen (Acetaminophen 325 Mg Tab) 650 mg PO QID PRN PRN Reason: pain/fever Stop: 08/02/24 20:38 Last Admin: 07/06/24 07:49 Dose: 650 mg Heparin Sodium (Porcine) (Heparin 100 Unit/Ml 5ml Flush) 5 ml FLUSH PRN PRN PRN Reason: Flush Stop: 08/04/24 02:42 Last Admin: 07/05/24 05:45 Dose: 5 ml Promethazine HCl (Phenergan) 6.25 mg in 50.25 mls @ 201 mls/hr IV Q6H PRN PRN Reason: Nausea And Vomiting Stop: 08/02/24 20:38 Last Infusion: 07/06/24 08:55 Dose: Infused Potassium Chloride/Dextrose/Sod Cl (D5nss + 20meq Kcl) 20 meq in 1,000 mls @ 100 mls/hr IV .Q10H [facility] Stop: 08/04/24 14:44 Last Admin: 07/07/24 08:20 Dose: 100 mls/hr Ketorolac Tromethamine (Ketorolac Tromethamine 15 Mg/Ml Vial) 15 mg IV Q6H PRN PRN Reason: Pain Stop: 07/08/24 20:38 Last Admin: 07/06/24 02:02 Dose: 15 mg Levothyroxine Sodium (Levothyroxine Sodium 137 Mcg Tablet) 137 mcg PO DAILYBB [facility] Stop: 08/03/24 06:29 Last Admin: 07/07/24 05:55 Dose: 137 mcg Loperamide HCl (Loperamide Hcl 2 Mg Cap) 2 mg PO Q8H PRN PRN Reason: Diarrhea Stop: 08/05/24 13:16 Lorazepam (Lorazepam 0.5 Mg Tab) 0.5 mg PO TID PRN PRN Reason: Anxiety Stop: 08/02/24 20:38 Last Admin: 07/06/24 22:50 Dose: 0.5 mg Ondansetron HCl (Ondansetron Inj 2 Mg/Ml 2 Ml Vial) 4 mg IV Q6H PRN PRN Reason: Nausea And Vomiting Stop: 08/04/24 18:30 Last Admin: 07/06/24 16:47 Dose: 4 mg Pantoprazole Sodium (Pantoprazole 40 Mg Tab) 40 mg PO DAILYBB [facility] Stop: 08/03/24 06:29 Last Admin: 07/07/24 05:55 Dose: 40 mg
--- NOTE | 2024-07-08 07:42 | Discharge Summary ---
Date of Service July 08, 2024 Admission HPI Per Admitting Provider History obtained from patient and records. Medical history significant for left breast cancer status post surgery/radiation ongoing chemotherapy with brain mets status post SBRT, GERD, hypothyroidism, facial hemangioma status post surgery, urolithiasis Last confinement October 2023 for right flank pain secondary to obstructive uropathy. Patient with dizziness episode described as imbalance and stumbling associated with achy headache symptoms since yesterday. Double vision with some nausea. No vomiting. No head trauma, no chest pain, no SOB. Watery diarrhea attributed to chemotherapy. Denies black/bloody stools. Low with SBP of 90s documented at the ER. 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), chronic lip asymmetry from facial hemangioma treatment, dry buccal mucosa NECK : Supple, no tenderness CHEST : CTA, no tenderness HEART : RRR, no obvious murmurs ABDOMEN: Some distention, nontender RECTAL : Intact sphincter, brown stool (FOBT negative) EXTREMITIES : Minimal LE swelling, no LE tenderness, no other conspicuous deformities noted NEUROLOGIC : Coherent, chronic left ptosis, chronic facial asymmetry, gait and stance not assessed Principal Diagnosis Dizziness secondary to hypotension, electrolyte imbalance, metastatic breast cancer on chemo Discharge Exam lying in bed without any acute distress except some headache Constitutional well developed, well nourished, + ill appearing and + obese Eyes PERRL, conjunctivae normal, anicteric sclerae ENMT external ear and nose normal, oropharynx normal Neck trachea midline, no thyromegaly Respiratory no respiratory distress Auscultation: lungs clear to auscultation bilaterally Cardiovascular Rate/Rhythm: regular rate and regular rhythm; not tachycardic Heart Sounds: normal S1 and normal S2; no murmur Extremities: no edema Gastrointestinal (Abdomen) Inspection/Auscultation: normal bowel sounds; abdomen not distended Percussion/Palpation: abdomen soft; abdomen nontender Neurologic normal touch/pain/proprioception and moves all extremities; no focal motor deficits and not confused Lymphatic no cervical or axillary lymphadenopathy Discharge Data Allergies Allergy/AdvReac Type Severity Reaction Status Date / Time Penicillins Allergy Intermediate Rash- Verified 07/03/24 19:05 Amoxicillin tazobactam Allergy Intermediate Rash Verified 07/03/24 19:05 adhesive Allergy Mild Rash Verified 07/03/24 19:05 Consultations 07/03/24 19:22 ED Decision to Admit Stat Ordered Studies 07/03/24 15:10 CT angio head wo/w Stat CT angio neck with con Stat 07/03/24 21:09 MRI Brain [MR brain wo/w con] Routine Hospital Course (1) Dizziness: Secondary to dehydration and nausea with less fluid intake following chemotherapy Dizziness with blurred vision- resolved now Will get orthostatic vitals Cautious amount of intravenous fluid Advised to drink more fluid as well Will monitor electrolytes and kidney function Possible orthostasis given low BP possibly from diarrheal illness possibly from chemotherapy rule out infectious causes Rule out progression of brain mets History metastatic breast cancer status post surgery/radiation ongoing chemotherapy Denies any more dizziness with ambulation Blood pressure remains controlled though at the lower side She was advised to drink more fluid Electrolyte imbalance Secondary to diarrhea and is complicated by chemotherapy Stool culture and C. difficile have been negative Electrolytes are normalized and the diarrhea is well-controlled She will be discharged home this afternoon (2) Breast cancer metastasized to brain: Has been ongoing chemo and radiation treatment MRI of the brain showed decrease in size of the left parietal lobe nodule Complains some headache and will give symptomatic management she will have follow-up with her oncologist as an outpatient Neutropenia Received Neupogen with improvement of the neutrophil count and also CBC Plan Other significant medical conditions are as below: GERD, stable Hypothyroidism, euthyroid as of today's TSH New onset anemia, no overt source of bleed, FOBT done at the ER was negative, possibly from chemotherapy Serum iron is normal and B12 and folate level are normal to DVT prophylaxis. SCDs re: history of brain mets Full code Total Time Total Time Spent Total Time Spent (In Minutes): 35 minutes Discharge Plan Discharge Items Patient Disposition: Home - Self-Care Reason For Visit: DIZZINESS Discharge Diagnosis: Dizziness secondary to hypotension, electrolyte imbalance, metastatic breast cancer on chemo Condition on Discharge: Fair Activity: Resume your previous activity Non-emergency contact: Primary Care Provider Call non-emergency contact if: you have any medication questions and your sym ptoms worsen Follow-up/Referrals: Nannette Rock, DO [Primary Care Provider] - (Date & Time 07/13/2024 10:00 AM Provider Deidre Ortiz MD Department [facility] ) Diet: Regular Addtl Attending Provider Instructions: Please take precautions to avoid falls Try to drink more fluid You can take [id number] Imodium to help diarrhea Please give appointments with your healthcare providers Pending Studies at Discharge: No Stand-Alone Forms: My [facility] [employer], Smoking Cessation Medications and DC Order Prescriptions: Continued levothyroxine 137 mcg capsule 137 mcg PO QAM famotidine 20 mg tablet 20 mg PO BID PRN (Reason: chemo ) Rx Instructions: uses during chemo when needed diphenoxylate-atropine [Lomotil] 2.5-0.025 mg tablet 1 tab PO Q6H PRN (Reason: Diarrhea) Rx Instructions: during chemo ondansetron 8 mg tablet,disintegrating 8 mg PO Q8H PRN (Reason: Nausea) prochlorperazine maleate [Compazine] 10 mg tablet 10 mg PO Q6H PRN (Reason: Nausea) dexamethasone 4 mg tablet 8 mg PO BID PRN (Reason: chemo) Rx Instructions: take 8mg twice daily for 3 days starting the day prior to chemo tx acetaminophen [Tylenol Extra Strength] 500 mg Tablet 1,000 mg PO Q8H PRN (Reason: pain) Qty: 90 0RF potassium chloride 10 mEq tablet extended release 10 meq PO BID benzonatate 100 mg capsule 100 mg PO TID PRN (Reason: chemo) omeprazole 20 mg capsule,delayed release(DR/EC) 20 mg PO DAILYBB Discharge Orders: Discharge Order (Routine); Ordered 07/07/24 Ordered By: Qi Jin/Other Patient Handouts: Electrolytes, Dehydration Admission Data Admit Date/Time: 07/05/24 15:39 Attending Provider: Qi Guzman Admit Provider: Christiano Hall Primary Care Provider: Nannette Rock Other Providers: Christiano Hall; Ann Robles; Darron Pendleton Other Interventions: Discharge Summary Assessment (RN) Last Done: 07/07/24 13:28
== END 2024-07-07 14:28 | disposition home or self-care (01) | DRG 394 ==
LOC: ED 14:46 → EDINP 14:46 → SUATTDRO 20:37 → 2S 23:56 → SUATTDRO 07-05 15:39
DX: E60 Dietary zinc deficiency; Z92.3 Personal history of irradiation; D64.9 Anemia, unspecified; C50.919 Malignant neoplasm of unspecified site of unspecified female breast; E03.9 Hypothyroidism, unspecified; D70.1 Agranulocytosis secondary to cancer chemotherapy; Z83.3 Family history of diabetes mellitus; K52.1 Toxic gastroenteritis and colitis; C79.31 Secondary malignant neoplasm of brain; I95.9 Hypotension, unspecified; T45.1X5A Adverse effect of antineoplastic and immunosuppressive drugs, initial encounter; K21.9 Gastro-esophageal reflux disease without esophagitis; Z87.442 Personal history of urinary calculi; E86.0 Dehydration; Y92.019 Unspecified place in single-family (private) house as the place of occurrence of the external cause; Z79.890 Hormone replacement therapy; Z88.0 Allergy status to penicillin